=== PATIENT | female | born 1945 | race Caucasian/White ===

== ENCOUNTER 2016-07-06 11:22 | Inpatient (IN) | payer MEDICAID ==
[~2016-07-06] VITALS: Ht 152.4 cm; Wt 51.4 kg
[~2016-07-06 11:22] MED LIST: ADV25050 INH; ALBU8.5H5 IH; AMLO-147 PO; ASPI81TA3 PO; CARV3.1260 PO; DOCU-159 PO; FER325 PO; FURO-110 PO; LANT3I SC; LOSA100T7 PO; METO10TA92 PO; OMEP20CA16 PO; ONDA4TAB8 PO
[2016-07-06 12:22] LABS: ADD SCAN DIFF NO
[2016-07-06 12:23] LABS: BASOPHILS % 0.5 % (0.0-2.0); EOSINOPHILS # 0.2 10^3/ul (0.0-0.5); EOSINOPHILS % 3.7 % (0.0-7.0); HEMATOCRIT 23.2 % (37.0-47.0); HEMOGLOBIN 7.6 g/dl (12.0-16.0); LYMPHOCYTES # 1.3 10^3/ul (0.8-2.9); LYMPHOCYTES % 22.6 % (15.0-51.0); MEAN CORPUSCULAR HEMOGLOBIN 31.4 pg (29.0-33.0); MEAN CORPUSCULAR HGB CONC 32.8 g/dl (32.0-37.0); MEAN CORPUSCULAR VOLUME 95.9 fl (82.0-101.0); MEAN PLATELET VOLUME 9.1 fl (7.4-10.4); MONOCYTE # 0.4 10^3/ul (0.3-0.9); MONOCYTES % 6.6 % (0.0-11.0); NEUTROPHIL # 3.7 10^3/ul (1.6-7.5); NEUTROPHILS % 66.2 % (39.0-77.0); PLATELET COUNT 133 10^3/UL (140-415); RED BLOOD COUNT 2.42 10^6/ul (4.20-5.40); RED CELL DISTRIBUTION WIDTH 13.4 % (11.5-14.5); WHITE BLOOD COUNT 5.6 10^3/ul (4.8-10.8)
[2016-07-06 12:33] LABS: ALBUMIN 3.3 g/dl (3.3-4.9)
[2016-07-06 12:34] LABS: CHLORIDE 103 mmol/L (97-110); INR 1.01; POTASSIUM 4.5 mmol/L (3.5-5.1); PROTIME 13.3 Sec (12.2-14.2); SODIUM 137 mmol/L (135-144)
[2016-07-06 12:35] LABS: PARTIAL THROMBOPLASTIN TIME 34.3 Sec (25.0-35.0)
[2016-07-06 12:36] LABS: ALBUMIN/GLOBULIN RATIO 0.82; ANION GAP 16 (8-16); ASPARTATE AMINO TRANSFERASE 17 IU/L (15-46); BILIRUBIN,INDIRECT 0.2 mg/dl (0-1.1); BILIRUBIN,TOTAL 0.2 mg/dl (0.2-1.3); CARBON DIOXIDE 23 mmol/L (21-31); CREATININE 0.95 mg/dl (0.44-1.00); TOTAL PROTEIN 7.3 g/dl (6.1-8.1)
[2016-07-06 12:37] LABS: ALANINE AMINOTRANSFERASE 11 IU/L (13-69); ALKALINE PHOSPHATASE 81 IU/L (42-121); BLOOD UREA NITROGEN 19 mg/dl (7-20); CALCIUM 8.5 mg/dl (8.4-10.2); GLUCOSE 310 mg/dl (70-220)
[2016-07-06] MEDS ORDERED: NOVMIX SC (12:44)
[2016-07-06] MEDS ORDERED: LANT3I SC (12:45)
[2016-07-06 12:53] LABS: TROPONIN-I < 0.012 ng/ml (0.00-0.12)
[2016-07-06 12:54] LABS: B-TYPE NATRIURETIC PEPTIDE 3720 PG/ML (0-125)
--- NOTE | 2016-07-06 12:55 | RADRPT ---
PROCEDURE: XR Chest. CLINICAL INDICATION: Shortness of breath TECHNIQUE: Chest AP portable. COMPARISON: 09/02/2015 FINDINGS: Right internal jugular Port-A-Cath. The mediastinal structures are unremarkable. There is calcification of the thoracic aorta (consiste nt with atherosclerosis). There is moderate cardiac enlargement. There is mild pulmonary venous hy pertension. There is a RLL patchy consolidation/subsegmental atelectasis. There is left basilar madsen bsegmental atelectasis. The pleural spaces are unremarkable. There are senescent changes of the ax ial skeleton. IMPRESSION: Moderate cardiac enlargement. Mild pulmonary venous hypertension. RLL patchy consolidation/subsegmental atelectasis Left basilar subsegmental atelectasis. RPTAT: HGDB .Benson Frederick MD, Date Time Electronically viewed and signed by .Benson Frederick MD, on 07/06/2016 12:54 .B/
[2016-07-06] MEDS ORDERED: SOD CHLORIDE 0.9% 250 ML IV ONE (13:21)
[2016-07-06] MEDS ORDERED: FUROSEMIDE 40 MG INJ IV ONE (13:30)
[2016-07-06] MEDS ORDERED: ONDANSETRON 4 MG INJ IV PRN (14:30)
[2016-07-06] MEDS ORDERED: ACETAMINOPHEN 325 MG TAB PO PRN (14:30)
--- NOTE | 2016-07-06 14:51 | ERA ---
ER Documentation Chief Complaint Date/Time DATE: 07/06/16 TIME: 14:43 Chief Complaint COUGH,SOB, WEAKNESS HPI 70-year-old female with a history of hypertension, diabetes and heart failure presenting with worsening shortness of breath and bilateral lower extremity edema. She is unable to sleep secondary to her dyspnea per her daughter. She was recently diagnosed with anemia, but has not been treated. She denies any associated chest pain, fevers, chills. She does have a chronic cough with no change in her phlegm. No recent travel or surgeries. ROS All systems reviewed and are negative except as per history of present illness. Medications Home Meds Reported Medications Insulin Glargine* (Lantus*) 100 Unit/Ml Soln, 20 UNIT SC QHS, #1 VIAL 07/06/16 Insulin Aspart (Novolog Mix (70/30)) 100 Units/Ml Soln, 0 SC WITH MEALS, VIAL 07/06/16 Docusate Sodium* (Docusate Sodium*) 100 Mg Capsule, 100 MG PO BID, #60 CAP 03/28/15 Furosemide* (Lasix*) 20 Mg Tablet, 20 MG PO DAILY, TAB 03/28/15 Amlodipine Besylate* (Amlodipine Besylate*) 10 Mg Tablet, 10 MG PO DAILY, #30 TAB 03/28/15 Carvedilol* (Carvedilol*) 3.125 Mg Tablet, 3.125 MG PO DAILY, TAB 01/31/14 Losartan Potassium* (Losartan Potassium*) 100 Mg Tablet, 100 MG PO DAILY, TAB 10/07/13 Omeprazole* (Omeprazole*) 20 Mg Capsule.dr, 20 MG PO DAILY 05/26/13 Discontinued Reported Medications Albuterol Sulfate* (Albuterol Sulfate* HFA) 8.5 Gm Hfa.aer.ad, 1 PUFF IH DAILY Y for WHEEZING AND SOB, EA 01/31/14 Aspirin* (Aspirin* Chew) 81 Mg Tab.chew, 81 MG PO DAILY, TAB.CHEW 01/31/14 Discontinued Scripts Furosemide* (Lasix*) 20 Mg Tablet, 20 MG PO DAILY, #20 TAB Prov:PAT NICOHLAS MD 09/02/15 Insulin Glargine* (Lantus*) 100 Unit/Ml Soln, 8 UNIT SC HS, #1 BOTTLE Prov:CHRIS KO MD 04/13/15 Ferrous Sulfate* (Ferrous Sulfate*) 325 Mg Tabec, 325 MG PO DAILY, #30 TAB Prov:CHRIS KO MD 04/13/15 Metoclopramide* (Reglan*) 10 Mg Tab, 10 MG PO twice a day, #60 TAB Prov:CHRIS KO MD 04/13/15 Ondansetron Hcl* (Zofran*) 4 Mg Tablet, 4 MG PO Q6H for NAUSEA AND/OR VOMITING, #30 TAB Prov:EVONNE STEPHENSON 03/28/15 Salmeterol Xinaf/Fluticasone* (Advair*) 250-50 Diskus Inhaler, 1 INH INH BID, # 1 INH Prov:ODILON VELASQUEZ 02/12/14 Allergies Allergies: Coded Allergies: Penicillins (Verified Allergy, Severe, ANGIOEDEMA, 07/06/16) ceftriaxone (Verified Allergy, Severe, angioedema, 07/06/16) PMhx/Soc History of Surgery: Yes (LEFT BREAST MASTECTOMY,RT KNEE SURGERY) Anesthesia Reaction: No Hx Neurological Disorder: No Hx Respiratory Disorders: Yes (ASTHMA,PNA, PLEURAL EFFUSION) Hx Cardiac Disorders: Yes (HTN, CHF) Hx Miscellaneous Medical Probl: No Hx Alcohol Use: No Hx Substance Use: No Hx Tobacco Use: No Smoking Status: Never smoker FmHx Family History: No diabetes Physical Exam Vitals Vital Signs Date Time Temp Pulse Resp B/P Pulse Ox O2 Delivery O2 Flow Rate FiO2 07/06/16 12:13 Nasal Cannula 2 07/06/16 11:24 98.1 74 20 181/82 99 Physical Exam Const: Sitting upright in bed, no apparent distress Head: Atraumatic Eyes: Normal Conjunctiva ENT: Normal External Ears, Nose and Mouth. Neck: Full range of motion. No JVD. No meningismus. Resp: Clear to auscultation bilaterally, diminished at bases Cardio: Regular rate and rhythm, no murmurs Abd: Soft, non tender, non distended. Normal bowel sounds Skin: No petechiae or rashes Back: No midline or flank tenderness Ext: No cyanosis, 2+ bilateral lower extremity edema, symmetric Neur: Awake and alert Psych: Normal Mood and Affect Result Diagram: 07/06/16 1207 07/06/16 1207 Results 24 hrs Laboratory Tests Test 07/06/16 12:07 White Blood Count 5.610^3/ul Red Blood Count 2.4210^6/ul Hemoglobin 7.6g/dl Hematocrit 23.2% Mean Corpuscular Volume 95.9fl Mean Corpuscular Hemoglobin 31.4pg Mean Corpuscular Hemoglobin Concent 32.8g/dl Red Cell Distribution Width 13.4% Platelet Count 63673^3/UL Mean Platelet Volume 9.1fl Neutrophils % 66.2% Lymphocytes % 22.6% Monocytes % 6.6% Eosinophils % 3.7% Basophils % 0.5% Nucleated Red Blood Cells % 0.0/100WBC Neutrophils # 3.710^3/ul Lymphocytes # 1.310^3/ul Monocytes # 0.410^3/ul Eosinophils # 0.210^3/ul Basophils # 0.010^3/ul Nucleated Red Blood Cells # 0.010^3/ul Prothrombin Time 13.3Sec Prothrombin Time Ratio 1.0 INR International Normalized Ratio 1.01 Activated Partial Thromboplast Time 34.3Sec Sodium Level 137mmol/L Potassium Level 4.5mmol/L Chloride Level 103mmol/L Carbon Dioxide Level 23mmol/L Anion Gap 16 Blood Urea Nitrogen 19mg/dl Creatinine 0.95mg/dl Glucose Level 310mg/dl Calcium Level 8.5mg/dl Total Bilirubin 0.2mg/dl Direct Bilirubin 0.00mg/dl Indirect Bilirubin 0.2mg/dl Aspartate Amino Transf (AST/SGOT) 17IU/L Alanine Aminotransferase (ALT/SGPT) 11IU/L Alkaline Phosphatase 81IU/L Troponin I < 0.012ng/ml B-Type Natriuretic Peptide 3720PG/ML Total Protein 7.3g/dl Albumin 3.3g/dl Globulin 4.00g/dl Albumin/Globulin Ratio 0.82 Current Medications Medications (Trade) Dose Ordered Sig/Nicol Route PRN Reason Start Time Stop Time Status Last Admin Dose Admin Furosemide 40 mg 40 mg ONCE ONCE IV 07/06/16 13:30 07/06/16 13:31 DC 07/06/16 13:43 Sodium Chloride (NS) 250 ml @ 0 mls/hr Q0M ONCE IV 07/06/16 13:21 07/06/16 13:23 DC 07/06/16 13:43 Ondansetron HCl (Zofran Inj) 4 mg ER BRIDGE PRN IV NAUSEA AND/OR VOMITING 07/06/16 14:30 07/07/16 14:29 Acetaminophen (Tylenol Tab) 650 mg ER BRIDGE PRN PO MILD PAIN/FEVER 07/06/16 14:30 07/07/16 14:29 Procedures/MDM EMERGENT LABS AND DIAGNOSTIC STUDIES: Lab Results above were reviewed and interpreted by me. CBC is notable for anemia with hemoglobin 7.6 BNP is elevated 12-lead EKG was interpreted by Wilfred Montesinos MD: Normal Sinus Rhythm with ventricular rate of at 63 beats per minute Normal axis Normal intervals No acute ST or T wave changes suggestive of acute ischemia or STEMI. Radiology Results as interpreted by Radiology below were reviewed by Luis Enrique Montesinos MD: Chest x-ray: Moderate cardiac enlargement. Mild pulmonary venous hypertension. RLL patchy consolidation/subsegmental atelectasis Left basilar subsegmental atelectasis. .Benson Frederick MD, MD Date Time Electronically viewed and signed by .Benson Frederick MD, MD on 07/06/2016 12:54 Initial Nursing notes reviewed. Previous Medical Records requested via the Electronic Health Record. EMERGENCY DEPARTMENT COURSE / MEDICAL DECISION MAKING: Patient is presenting with worsening shortness of breath and constellation of symptoms concerning for acute decompensated CHF. Vitals were notable for uncontrolled hypertension, however I have a low suspicion for hypertensive emergency. EKG shows no overt evidence of acute ischemia. Chest x-ray shows possible right lower lobe infiltrate, however patient's exam and presentation is not consistent with pneumonia. Low suspicion for acute PE given exam and history. Low suspicion for acute ischemia, but will trend troponin. Given decline in functional status, she will benefit from admission for further diuresis and cardiac evaluation. Lasix 40 mg IV given. Accepting Care Team: Current data and ongoing care discussed. Time: Time of admission Primary Provider: Ferdinand Consulting: None Outstanding Data: none Departure Diagnosis: Primary Impression: Dyspnea Qualified Code: R06.00 - Dyspnea, unspecified type Additional Impression: Acute exacerbation of CHF (congestive heart failure) Qualified Code: I50.9 - Acute on chronic congestive heart failure, unspecified congestive heart failure type KAROLINA MONTESINOS MD Jul 06, 2016 14:51
[2016-07-06 17:25] VITALS: TEMP 98.2
[2016-07-06] MEDS ORDERED: ALBUTEROL/IPRATROPIUM (NEB) 3 ML AMP HHN PRN (18:00)
[2016-07-06] MEDS: AMLODIPINE 10 MG TAB PO SCH (18:25)
[2016-07-06] MEDS: PANTOPRAZOLE 40 MG INJ IV SCH (18:28)
[2016-07-06 18:29] VITALS: Ht 152.4 cm; Wt 51.4 kg
[2016-07-06] MEDS ORDERED: DEXTROSE 50% 50 ML SYRINGE IV PRN ×2 (18:30)
[2016-07-06] MEDS ORDERED: GLUCOSE GEL 15 GRAM TUBE PO PRN ×2 (18:30)
[2016-07-06] MEDS ORDERED: GLUCAGON 1 MG INJ IM PRN (18:30)
[2016-07-06] MEDS ORDERED: GLUCOSE GEL 15 GRAM TUBE BUCCAL PRN (18:30)
[2016-07-06 18:39] VITALS: BP 169/78; RESP 18
[2016-07-06 19:19] LABS: CREATINE KINASE 134 IU/L (23-200)
[2016-07-06 19:26] LABS: IRON 38 ug/dl (35-150)
[2016-07-06 19:29] LABS: CK-MB 7.12 ng/ml (0.0-2.4)
[2016-07-06 19:33] LABS: TROPONIN-I < 0.012 ng/ml (0.00-0.12)
[2016-07-06 19:35] LABS: TOTAL IRON BINDING CAPACITY 250 ug/dl (241-421)
[2016-07-06] MEDS ORDERED: LEVOFLOXACIN 750MG/D5W (PMX) 150 ML IVPB SCH (20:00)
[2016-07-06] MEDS: ALBUTEROL/IPRATROPIUM (NEB) 3 ML AMP HHN SCH (20:06)
[2016-07-06 20:07] VITALS: BP 189/82; RESP 18
[2016-07-06 20:34] VITALS: PULSE 80
[2016-07-06] MEDS: DOCUSATE SODIUM 100 MG CAP PO SCH (20:34)
[2016-07-06] MEDS: INSULIN ASPART [NOVOLOG] 3 ML PEN SC SCH (21:52)
[2016-07-06] MEDS: INSULIN GLARGINE [LANtus] 3 ML PEN SC SCH (21:53)
--- NOTE | 2016-07-06 23:31 | HP ---
DATE OF ADMISSION: 07/06/2016 PRESENTING COMPLAINT: Shortness of breath and weakness. HISTORY OF PRESENTING COMPLAINT: This is a 70-year-old female brought in by her daughter because of shortness of breath and bilateral lower extremity swelling and severe lethargy. The daughter is th e one giving the history and reports orthopnea as well as dyspnea on exertion. She does have a hist ory of congestive heart failure. There has been cough, but this is chronic for the patient. Produc tive of whitish phlegm. The patient was also found to be severely anemic in the emergency room, trena villalobos the daughter says she has a history of, but she has not required transfusion. Her last hospitali zation at this facility was in 03/2015. She has had no fevers. No syncopal episodes. No falls. N o gross focal deficits have been noted. Denies dysuria or hematuria, but patient has had multiple u rinary tract infections. Family has not noted black stools and the patient does not endorse same. PAST MEDICAL HISTORY: 1. High blood pressure. 2. Diabetes. 3. Congestive heart failure. 4. History of aortic stenosis. 5. History of left breast cancer status post left-sided mastectomy. 6. Chronic arthritis status post right knee surgery. 7. Positive history of mycoplasma infection in the past. 8. Thoracentesis x2. 9. Chronic gastritis with last EGD: 04/11/2015. 10. Multiple urinary tract infections. ALLERGIES: 1. PENICILLIN. 2. ROCEPHIN. MEDICATIONS: 1. Coreg. 2. Lasix. 3. Norvasc. 4. Colace. 5. Lantus. 6. Losartan. 7. NovoLog. 8. Nexium. FAMILY HISTORY: Noncontributory. REVIEW OF SYSTEMS: A 12-point review of system was done. Pertinent findings are as noted in the HP I. PHYSICAL EXAMINATION: VITAL SIGNS: Temperature 98.2, pulse 67, respirations 17, blood pressure 165/79. Saturations are 9 8% on room air. GENERAL: Elderly female who currently is comfortable, but lethargic. HEENT: Head is normocephalic, atraumatic. Pupils are equal and reactive. There is no scleral chani dice. Mild conjunctival pallor. Mucous membranes are slightly dry. Posterior pharynx clear of exu date. NECK: Supple. No JVD. CHEST: Clear to auscultation, reduced in the bases. CARDIOVASCULAR: S1 and S2. The patient has a systolic murmur. ELECTROCARDIOGRAM: Shows normal sinus rhythm on my review with a rate of 63 beats per minute withou t evidence of acute ischemia. ABDOMEN: Soft, nontender, nondistended. EXTREMITIES: No lower extremity edema. SKIN: Devoid of rash or jaundice. PSYCHIATRIC: She was calm, cooperative with exam. LABORATORY VALUES: Hemoglobin 7.6, as noted. Platelet count is also low at 133. Note is that the white count normal, indices unremarkable. On her chemistry, glucose was elevated at 310. The rest of the complete metabolic profile was unremarkable. Troponin is negative. BNP was, however, elevat ed at 3720. Coagulation profile was unremarkable. Urinalysis is still pending. IMAGING: Chest x-ray showed moderate cardiac enlargement with mild pulmonary venous hypertension wi th right lower lobe patchy consolidation and left basilar subsegmental atelectasis. ASSESSMENT: A 70-year-old female who was brought in with chronic cough, shortness of breath, and le thargy now managed for the followin. Severe symptomatic anemia. 2. Mild congestive heart failure exacerbation, likely diastolic. 3. Chronic aortic stenosis. 4. Uncontrolled high blood pressure. 5. Diabetes type 2, also uncontrolled. 6. Mild thrombocytopenia. 7. History of breast cancer status post left-sided mastectomy. 8. PENICILLIN AND CEFTRIAXONE ALLERGY. 9. History of thoracentesis x2 in the past. 10. Chronic gastritis. 11. Right lower lobe consolidation, which could be suggestive of pneumonia in the right side lung. The patient has no fever or leukocytosis. PLAN: 1. Admit the patient to telemetry floor. We will complete an ACS rule out. Commence to diuresis w ith IV Lasix. Get a repeat echocardiogram and obtain cardiology consult if indicated. 2. We will get a stool occult blood testing. Will commence the patient on IV PPI therapy. Put her on an 1800 calorie diet and stool softeners and see how she does. 3. She is to be transfused per the emergency room physician. Post-transfusion, we will repeat the hemoglobin and further interventions will depend on our findings. 4. Resume home blood pressure medications. Titrate for improved blood pressure control if indicate d. 5. Resume home Lantus therapy. Again, titrate for improved control if indicated. 6. Of note is that the patient is not on aspirin therapy. I am going to be starting her on low dos e 81 mg aspirin. 7. We will closely monitor her platelet counts. Again, intervene as indicated. I reviewed this plan of care with the patient and her family. I have answered questions. Further i nterventions will depend on her clinical course. Prophylaxis will be with SCDs only for now in view of severe anemia and IV PPI. Please also note that I also commenced patient on empiric antibiotics for probable pneumonia versus probable urinary tract infection as well. Dictated By: JIMBO ZAVALETA MD BA/NTS Conf#: [id number] DID#: [id number]
[2016-07-07] VITALS (13 sets, daily range): BP systolic 111–170; BP diastolic 54–75; PULSE 63–83; RESP 18–20
[2016-07-07 00:28] LABS: CK-MB 5.14 ng/ml (0.0-2.4)
[2016-07-07 00:34] LABS: TROPONIN-I < 0.012 ng/ml (0.00-0.12)
[2016-07-07 00:40] LABS: CREATINE KINASE 128 IU/L (23-200)
[2016-07-07 00:55] LABS: ADD UMIC YES; URINE BILIRUBIN (Dip) NEGATIVE (NEGATIVE); URINE BLOOD (Dip) TRACE (NEGATIVE); URINE COLOR LT. YELLOW (YELLOW); URINE GLUCOSE (Dip) NEGATIVE (NEGATIVE); URINE KETONES (Dip) NEGATIVE (NEGATIVE); URINE LEUKOCYTE ESTERASE (Dip) NEGATIVE (NEGATIVE); URINE NITRITE (Dip) NEGATIVE (NEGATIVE); URINE TOTAL PROTEIN (Dip) 2+ (NEGATIVE); URINE UROBILINOGEN (Dip) 0.2 E.U./dL (0.1-1.0)
[2016-07-07 01:06] LABS: BACTERIA,URINE MODERATE; SQUAMOUS EPITHELIAL CELL,UR OCCASIONAL
[2016-07-07] MEDS: ACCU-CHEK XX SCH (02:16)
[2016-07-07] MEDS: PANTOPRAZOLE 40 MG INJ IV SCH (06:24)
[2016-07-07] MEDS ORDERED: LEVALBUTEROL (NEB) 0.63 MG/3 ML AMP HHN ONE (06:30)
[2016-07-07] MEDS: GUAIFENESIN 20 MG/ML 5ML CUP PO PRN ×3 (06:41→16:23)
[2016-07-07 07:14] LABS: CALCIUM 8.3 mg/dl (8.4-10.2); CHOL/HDL RATIO 3.3 RATIO; CREATININE 0.97 mg/dl (0.44-1.00); MAGNESIUM 1.7 mg/dl (1.7-2.5); POTASSIUM 4.9 mmol/L (3.5-5.1)
[2016-07-07 07:39] LABS: THYROID STIMULATING HORMONE 11.7 MIU/L (0.465-4.680)
[2016-07-07] MEDS: INSULIN ASPART [NOVOLOG] 3 ML PEN SC SCH ×4 (08:00→20:51)
[2016-07-07] MEDS: DOCUSATE SODIUM 100 MG CAP PO SCH ×2 (08:45→20:42)
[2016-07-07] MEDS: ASPIRIN (EC) 81 MG TAB PO SCH (08:45)
[2016-07-07] MEDS: LOSARTAN 50 MG TAB PO SCH (08:46)
[2016-07-07] MEDS: AMLODIPINE 10 MG TAB PO SCH (08:46)
[2016-07-07] MEDS: ALBUTEROL/IPRATROPIUM (NEB) 3 ML AMP HHN SCH ×4 (09:00→20:33)
[2016-07-07] MEDS ORDERED: FUROSEMIDE 40 MG INJ IV SCH (09:00)
--- NOTE | 2016-07-07 12:06 | RADRPT ---
Echocardiogram Report Patient Name: JAYSON EUBANKS Gender: Female Date: 1945 Study Date: 07-Jul-2016 Commercial Counsel: Piedad Briceño [facility] Location: [id number] Ref. Physician: JIMBO ZAVALETA Quality: Good Procedures: Transthoracic echocardiogram with complete 2D, M-Mode, and doppler examination. Indications: Congestive Heart Failure. 2D/M Mode Doppler Measurement Value Normal Ranges Measurement Value Normal Ranges LVIDd 2D 4.4 3.5 - 5.6 cm CASSIE Vmax 0.9 cm2 LVIDs 2D 2.2 2.1 - 4.1 cm CASSIE VTI 0.9 cm2 FS 2D 50.8 % AV Mean Krish 2.5 m/sec LVPWd 2D 1.0 0.6 - 1.1 cm AV Mean PG 29.0 mmHg IVSd 2D 1.0 0.6 - 1.1 cm AV Peak Krish 3.6 m/sec IVS/LVPW 2D 1.0 AV Peak PG 52.0 mmHg AoR Diam 2D 2.6 2.0 - 3.7 cm AV VTI 90.4 cm LA/Ao 2D 1 0 - 1 LVOT Mean Krish 0.8 m/sec EDV 2D 85.8 cm3 LVOT Mean PG 3.0 mmHg ESV 2D 10.2 cm3 LVOT Peak Krish 1.0 m/sec LA Dimen 2D 3.1 2.3 - 4.0 cm LVOT Peak PG 4.0 mmHg LVOT Diam 2.0 cm LVOT VTI 26.3 cm LVOT Area 3.1 cm2 MV E Peak Krish 0.9 m/sec MV A Peak Krish 0.6 m/sec MV E/A 1.4 MV Decel Time 211 msec MV E/A 1.4 TR Peak Krish 3.8 m/sec TR Peak PG 56.0 mmHg RVSP 64.0 mmHg Findings Left Ventricle: Normal left ventricular systolic function. Normal left ventricular cavity size. Mild concentric left ventricular hypertrophy. Ejection fraction is visually estimated at 65 %. Tissue Doppler/Mitral Doppler indices are consistent with pseudonormalization with mildly elevated left atrial pressure (Stage II diastolic dysfunction). Right Ventricle: Normal right ventricular size. Normal right ventricular systolic function. Left Atrium: The left atrium is normal in size. Right Atrium: The right atrium is normal in size. Mitral Valve: Mild mitral leaflet calcification. Mild mitral annular calcification. Mild to moderate mitral valve regurgitation. Aortic Valve: Aortic valve not well visualized. Moderate to severe aortic stenosis. Aortic valve Max velocity 3.62 m/sec. Max PG 52.00 mmHg. Mean PG 29.00 mmHg. Aortic valve area 0.91 cm2. Aortic cusps appear moderately calcified. No aortic regurgitation. Tricuspid Valve: Estimated peak PA systolic pressure 64 mmHg. There is moderate tricuspid regurgitation. Pulmonic Valve: Normal pulmonic valve appearance. Pericardium: Normal pericardium with no significant pericardial effusion. Aorta: Normal aortic root. IVC: Dilated IVC with respiratory collapse consistent with elevated right atrial pressure. Conclusions 1.Normal left ventricular systolic function. Normal left ventricular cavity size. Mild concentric left ventricular hypertrophy. Ejection fraction is visually estimated at 65 %. Tissue Doppler/Mitral Doppler indices are consistent with pseudonormalization with mildly elevated left atrial pressure (Stage II diastolic dysfunction). 2.Mild mitral leaflet calcification. Mild mitral annular calcification. Mild to moderate mitral valve regurgitation. 3.Estimated peak PA systolic pressure 64 mmHg. There is moderate tricuspid regurgitation. 4.Aortic valve not well visualized. Moderate to severe aortic stenosis. Aortic valve Max velocity 3.62 m/sec. Max PG 52.00 mmHg. Mean PG 29.00 mmHg. Aortic valve area 0.91 cm2. Aortic cusps appear moderately calcified. No aortic regurgitation. 5.Dilated IVC with respiratory collapse consistent with elevated right atrial pressure. Electronically Signed By: Rory Beltrán 07-Jul-2016 12:06:11 -0700 Patient Name: JAYSON EUBANKS Study Date: 07-Jul-2016 [id number]
--- NOTE | 2016-07-07 16:39 | PN ---
Date/Time of Note Date/Time of Note DATE: 07/07/16 TIME: 16:28 Assessment/Plan VTE Prophylaxis VTE Prophylaxis Intervention: SCD's Lines/Catheters IV [facility] Saline Lock Urinary Cath still in place: No Assessment/Plan Assessment/Plan 1. Severe symptomatic anemia. 2 units of PRBC transfusion, follow up with H/H 2. Uncontrolled high blood pressure. change norvasc to procardia 3. Chronic aortic stenosis. 4. Community acquired pneumonia, levaquin 5. Diabetes type 2, on insulin 6. Mild thrombocytopenia. 7. History of breast cancer status post left-sided mastectomy. 8. PENICILLIN AND CEFTRIAXONE ALLERGY. 9. History of thoracentesis x2 in the past. 10. Chronic gastritis. 11. Hypothyroidism, synthroid Subjective 24 Hr Interval Summary Free Text/Dictation cough, sneezing Exam/Review of Systems Vital Signs Vitals Vital Signs Date Time Temp Pulse Resp B/P Pulse Ox O2 Delivery O2 Flow Rate FiO2 07/07/16 16:03 98.1 68 18 157/68 98 07/07/16 13:36 21 07/06/16 17:25 Room Air 07/06/16 12:13 2 Intake and Output 07/06/16 07/06/16 07/07/16 15:00 23:00 07:00 Intake Total 150 ml 900 ml Output Total 1900 ml Balance 150 ml -1000 ml Exam Constitutional: alert, oriented, well developed Psych: nl mood/affect, no complaints Head: atraumatic, normocephalic Eyes: EOMI, PERRL, nl conjunctiva, nl lids ENMT: nl external ears & nose, nl lips & teeth, nl nasal mucosa & septum Neck: non-tender, supple Respiratory: crackles/rales (on right) Cardiovascular: nl pulses, regular rate and rhythm, systolic murmur (RUSB Giii/ 6), No S3, No S4, No bruits, No diastolic murmur, No edema, No gallop, No irregular rhythm, No jugular venous distention (JVD), No other, No rub Gastrointestinal: nl liver, spleen, non-tender, soft, No ascites, No bowel sounds, No distended, No firm, No hepatomegaly, No mass , No other, No rebound or guarding, No splenomegaly, No surgical scars, No tender Musculoskeletal: nl extremities to inspection Extremities: normal pulses, No calf tenderness, No clubbing, No cyanosis, No edema, No other, No palpable cord, No pitting pedal edema, No tenderness Neurological: INSURANCE BUSINESS ANALYST II-XII intact, nl mental status, nl speech, nl strength Skin: nl turgor Lymph: nl lymph nodes Results Result Diagram: 07/06/16 1207 07/07/16 0544 Results 24 hrs Laboratory Tests Test 07/06/16 18:55 07/06/16 21:47 07/06/16 23:37 07/07/16 00:20 Iron Level 38 Total Iron Binding Capacity 250 Percent Iron Saturation 15 L Creatine Kinase 134 128 Creatine Kinase Index 5.3 4.0 Creatinine Kinase MB (Mass) 7.12 H 5.14 H Troponin I < 0.012 < 0.012 Bedside Glucose 232 H Urine Color LT. YELLOW Urine Clarity CLEAR Urine pH 6.5 Urine Specific Graham 1.015 Urine Ketones NEGATIVE Urine Nitrite NEGATIVE Urine Bilirubin NEGATIVE Urine Urobilinogen 0.2 E.U./dL Urine Leukocyte Esterase NEGATIVE Urine Microscopic RBC 2-5 Urine Microscopic WBC 2-5 Urine Squamous Epithelial Cells OCCASIONAL Urine Bacteria MODERATE Urine Hemoglobin TRACE Urine Glucose NEGATIVE Urine Total Protein 2+ H Test 07/07/16 02:10 07/07/16 02:29 07/07/16 02:49 07/07/16 03:06 Bedside Glucose 59 L 59 L 73 98 Test 07/07/16 03:22 07/07/16 05:44 07/07/16 05:49 07/07/16 08:01 Bedside Glucose 130 114 Sodium Level 136 Potassium Level 4.9 Chloride Level 105 Carbon Dioxide Level 27 Anion Gap 9 # Blood Urea Nitrogen 20 Creatinine 0.97 Glucose Level 118 # Calcium Level 8.3 L Magnesium Level 1.7 Triglycerides Level 64 Cholesterol Level 163 LDL Cholesterol, Calculated 101 HDL Cholesterol 49 Cholesterol/HDL Ratio 3.3 Thyroid Stimulating Hormone (TSH) 11.700 H Hemoglobin A1c 6.7 H Test 07/07/16 12:00 Bedside Glucose 192 Medications Medications Current Medications Amlodipine Besylate (Norvasc) 10 mg DAILY PO Last administered on 07/07/16 08: 46; Admin Dose 10 MG; Start 07/06/16 at 18:00 Carvedilol (Coreg) 3.125 mg BID PO Last administered on 07/07/16 08:46; Admin Dose 3.125 MG; Start 07/06/16 at 21:00 Docusate Sodium (Colace) 100 mg BID PO Last administered on 07/07/16 08:45; Admin Dose 100 MG; Start 07/06/16 at 21:00 Insulin Glargine (Lantus) 8 unit QHS SC Last administered on 07/06/16 21:53; Admin Dose 8 UNIT; Start 07/06/16 at 21:00 Losartan Potassium 100 mg 100 mg DAILY PO Last administered on 07/07/16 08:46 ; Admin Dose 100 MG; Start 07/07/16 at 09:00 Levofloxacin/ Dextrose (Levaquin 750 Mg/ D5W 150 ml (Pmx)) 150 ml @ 100 mls/hr Q48H IVPB Last administered on 07/06/16 20:34; Admin Dose 100 MLS/HR; Start at 20:00 Furosemide (Lasix) 40 mg DAILY IV Last administered on 07/07/16 08:47; Admin Dose 40 MG; Start 07/07/16 at 09:00 Pantoprazole (Protonix Iv) 40 mg DAILY@06 IV Last administered on 07/07/16 06: 24; Admin Dose 40 MG; Start 07/06/16 at 18:00 Miscellaneous Information 1 ea NOTE XX ; Start 07/06/16 at 18:30 Glucose (Glutose) 15 gm Q15M PRN PO DECREASED GLUCOSE; Start 07/06/16 at 18:30 Glucose (Glutose) 22.5 gm Q15M PRN PO DECREASED GLUCOSE; Start 07/06/16 at 18: 30 Dextrose (D50w Syringe) 25 ml Q15M PRN IV DECREASED GLUCOSE; Start 07/06/16 at 18:30 Dextrose (D50w Syringe) 50 ml Q15M PRN IV DECREASED GLUCOSE; Start 07/06/16 at 18:30 Glucagon (Glucagen) 1 mg Q15M PRN IM DECREASED GLUCOSE; Start 07/06/16 at 18:30 Glucose (Glutose) 15 gm Q15M PRN BUCCAL DECREASED GLUCOSE; Start 07/06/16 at 18 :30 Aspirin (Halfprin) 81 mg DAILY PO Last administered on 07/07/16 08:45; Admin Dose 81 MG; Start 07/07/16 at 09:00 Diagnostic Test (Pha) (Accu-Chek) 1 ea 02 XX Last administered on 07/07/16 02: 16; Admin Dose 1 EA; Start 07/07/16 at 02:00 Guaifenesin (Robitussin Liquid Cup) 200 mg Q4H PRN PO COUGH Last administered on 07/07/16 16:23; Admin Dose 200 MG; Start 07/07/16 at 06:30 PA GALAN MD Jul 07, 2016 16:38
[2016-07-07] MEDS: LEVOFLOXACIN 500MG/D5W (PMX) 100 ML IVPB SCH (16:59)
[2016-07-07] MEDS: NIFEdipine (XL) 60 MG TAB PO SCH (17:00)
[2016-07-07] MEDS: INSULIN GLARGINE [LANtus] 3 ML PEN SC SCH (20:52)
[2016-07-08] VITALS (9 sets, daily range): BP systolic 124–186; BP diastolic 60–92; PULSE 62–77; RESP 16–23
[2016-07-08] MEDS: ACCU-CHEK XX SCH (02:09)
[2016-07-08] MEDS: PANTOPRAZOLE (EC) 40 MG TAB PO SCH (05:33)
[2016-07-08] MEDS: LEVOTHYROXINE 50 MCG TAB PO SCH (05:33)
[2016-07-08] MEDS: INSULIN ASPART [NOVOLOG] 3 ML PEN SC SCH ×4 (08:00→21:25)
[2016-07-08 08:07] LABS: ADD SCAN DIFF NO
[2016-07-08 08:11] LABS: BASOPHILS % 0.5 % (0.0-2.0); EOSINOPHILS # 0.3 10^3/ul (0.0-0.5); EOSINOPHILS % 4.8 % (0.0-7.0); HEMATOCRIT 29.3 % (37.0-47.0); HEMOGLOBIN 9.6 g/dl (12.0-16.0); LYMPHOCYTES # 1.6 10^3/ul (0.8-2.9); LYMPHOCYTES % 26.5 % (15.0-51.0); MEAN CORPUSCULAR HEMOGLOBIN 29.8 pg (29.0-33.0); MEAN CORPUSCULAR HGB CONC 32.8 g/dl (32.0-37.0); MEAN PLATELET VOLUME 9.2 fl (7.4-10.4); MONOCYTE # 0.6 10^3/ul (0.3-0.9); MONOCYTES % 9.9 % (0.0-11.0); NEUTROPHIL # 3.5 10^3/ul (1.6-7.5); NEUTROPHILS % 58.1 % (39.0-77.0); PLATELET COUNT 119 10^3/UL (140-415); RED BLOOD COUNT 3.22 10^6/ul (4.20-5.40); RED CELL DISTRIBUTION WIDTH 14.5 % (11.5-14.5); WHITE BLOOD COUNT 6.1 10^3/ul (4.8-10.8)
[2016-07-08 08:32] LABS: POTASSIUM 4.5 mmol/L (3.5-5.1)
[2016-07-08 08:35] LABS: CREATININE 1.16 mg/dl (0.44-1.00)
[2016-07-08 08:36] LABS: CALCIUM 8.6 mg/dl (8.4-10.2)
[2016-07-08] MEDS: DOCUSATE SODIUM 100 MG CAP PO SCH ×2 (09:24→21:21)
[2016-07-08] MEDS: NIFEdipine (XL) 60 MG TAB PO SCH (09:25)
[2016-07-08] MEDS: LOSARTAN 50 MG TAB PO SCH (09:25)
[2016-07-08] MEDS: ASPIRIN (EC) 81 MG TAB PO SCH (09:25)
[2016-07-08] MEDS: ALBUTEROL/IPRATROPIUM (NEB) 3 ML AMP HHN SCH ×3 (09:40→17:00)
--- NOTE | 2016-07-08 14:39 | PN ---
Date/Time of Note Date/Time of Note DATE: 07/08/16 TIME: 14:37 Assessment/Plan VTE Prophylaxis VTE Prophylaxis Intervention: SCD's Lines/Catheters IV Catheter Type (from Nrsg): Port-a-cath Urinary Cath still in place: No Assessment/Plan Assessment/Plan 1. Severe symptomatic anemia. 2 units of PRBC transfusion, improved 2. Uncontrolled high blood pressure. change norvasc to procardia, improved 3. Chronic aortic stenosis. 4. Community acquired pneumonia, levaquin 5. Diabetes type 2, on insulin 6. Mild thrombocytopenia. 7. History of breast cancer status post left-sided mastectomy. 8. PENICILLIN AND CEFTRIAXONE ALLERGY. 9. History of thoracentesis x2 in the past. 10. Chronic gastritis. 11. Hypothyroidism, synthroid 12. Dysphgia, esophagram and speech eval Subjective 24 Hr Interval Summary Free Text/Dictation cough with white sputum, difficulty in swallowing Exam/Review of Systems Vital Signs Vitals Vital Signs Date Time Temp Pulse Resp B/P Pulse Ox O2 Delivery O2 Flow Rate FiO2 07/08/16 13:21 21 07/08/16 12:00 62 07/08/16 09:40 20 96 07/08/16 03:55 98.0 124/60 07/06/16 17:25 Room Air 07/06/16 12:13 2 Intake and Output 07/07/16 07/07/16 07/08/16 15:00 23:00 07:00 Intake Total 800 ml 1500 ml Output Total 3 ml 1000 ml Balance 797 ml 500 ml Exam Constitutional: alert, oriented, well developed Psych: nl mood/affect, no complaints Head: atraumatic, normocephalic Eyes: EOMI, nl conjunctiva, nl lids ENMT: nl external ears & nose, nl lips & teeth, nl nasal mucosa & septum Neck: non-tender, supple Respiratory: clear to auscultation, normal air movement, No congested cough, No crackles/rales, No diminished breath sounds, No intercostal retraction, No labored breathing, No other, No respirations, No tactile fremitus, No wheezing Cardiovascular: nl pulses, regular rate and rhythm, No S3, No S4, No bruits, No diastolic murmur, No edema, No gallop, No irregular rhythm, No jugular venous distention (JVD), No murmurs/extra sounds, No other, No rub, No systolic murmur Gastrointestinal: nl liver, spleen, non-tender, soft, No ascites, No bowel sounds, No distended, No firm, No hepatomegaly, No mass , No other, No rebound or guarding, No splenomegaly, No surgical scars, No tender Musculoskeletal: nl extremities to inspection Extremities: normal pulses, No calf tenderness, No clubbing, No cyanosis, No edema, No other, No palpable cord, No pitting pedal edema, No tenderness 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, nl mental status, nl speech, nl strength Skin: nl turgor Lymph: nl lymph nodes Results Result Diagram: 07/08/16 0723 07/08/16 0423 Results 24 hrs Laboratory Tests Test 07/07/16 17:05 07/07/16 20:45 07/08/16 01:57 07/08/16 04:23 Bedside Glucose 162 252 H 90 Sodium Level 137 Potassium Level 4.5 Chloride Level 102 Carbon Dioxide Level 26 Anion Gap 14 Blood Urea Nitrogen 30 H Creatinine 1.16 H Glucose Level 103 Calcium Level 8.6 Test 07/08/16 07:23 07/08/16 08:14 07/08/16 11:46 White Blood Count 6.1 Red Blood Count 3.22 #L Hemoglobin 9.6 #L Hematocrit 29.3 #L Mean Corpuscular Volume 91.0 Mean Corpuscular Hemoglobin 29.8 Mean Corpuscular Hemoglobin Concent 32.8 Red Cell Distribution Width 14.5 Platelet Count 119 L Mean Platelet Volume 9.2 Neutrophils % 58.1 Lymphocytes % 26.5 Monocytes % 9.9 Eosinophils % 4.8 Basophils % 0.5 Nucleated Red Blood Cells % 0.0 Neutrophils # 3.5 Lymphocytes # 1.6 Monocytes # 0.6 Eosinophils # 0.3 Basophils # 0.0 Nucleated Red Blood Cells # 0.0 Bedside Glucose 98 181 Medications Medications Current Medications Carvedilol (Coreg) 3.125 mg BID PO Last administered on 07/08/16 09:24; Admin Dose 3.125 MG; Start 07/06/16 at 21:00 Docusate Sodium (Colace) 100 mg BID PO Last administered on 07/08/16 09:24; Admin Dose 100 MG; Start 07/06/16 at 21:00 Insulin Glargine (Lantus) 8 unit QHS SC Last administered on 07/07/16 20:52; Admin Dose 8 UNIT; Start 07/06/16 at 21:00 Losartan Potassium (Cozaar) 100 mg DAILY PO Last administered on 07/08/16 09: 25; Admin Dose 100 MG; Start 07/07/16 at 09:00 Miscellaneous Information 1 ea NOTE XX ; Start 07/06/16 at 18:30 Glucose (Glutose) 15 gm Q15M PRN PO DECREASED GLUCOSE; Start 07/06/16 at 18:30 Glucose (Glutose) 22.5 gm Q15M PRN PO DECREASED GLUCOSE; Start 07/06/16 at 18: 30 Dextrose (D50w Syringe) 25 ml Q15M PRN IV DECREASED GLUCOSE; Start 07/06/16 at 18:30 Dextrose (D50w Syringe) 50 ml Q15M PRN IV DECREASED GLUCOSE; Start 07/06/16 at 18:30 Glucagon (Glucagen) 1 mg Q15M PRN IM DECREASED GLUCOSE; Start 07/06/16 at 18:30 Glucose (Glutose) 15 gm Q15M PRN BUCCAL DECREASED GLUCOSE; Start 07/06/16 at 18 :30 Aspirin (Halfprin) 81 mg DAILY PO Last administered on 07/08/16 09:25; Admin Dose 81 MG; Start 07/07/16 at 09:00 Diagnostic Test (Pha) (Accu-Chek) 1 ea 02 XX Last administered on 07/08/16 02: 09; Admin Dose 1 EA; Start 07/07/16 at 02:00 Guaifenesin (Robitussin Liquid Cup) 200 mg Q4H PRN PO COUGH Last administered on 07/07/16 16:23; Admin Dose 200 MG; Start 07/07/16 at 06:30 Pantoprazole (Protonix Tab) 40 mg DAILY@06 PO Last administered on 07/08/16 05 :33; Admin Dose 40 MG; Start 07/08/16 at 06:00 Nifedipine (Procardia Xl) 60 mg DAILY PO Last administered on 07/08/16 09:25; Admin Dose 60 MG; Start 07/07/16 at 16:30 Levothyroxine Sodium 50 mcg 50 mcg DAILY@06 PO Last administered on 07/08/16 05:33; Admin Dose 50 MCG; Start 4/19/17 at 06:00 Levofloxacin/ Dextrose (Levaquin 500mg/ D5W 100 ml (Pmx)) 100 ml @ 100 mls/hr Q24H IVPB Last administered on 07/07/16t 16:59; Admin Dose 100 MLS/HR; Start at 16:30 PA GALAN MD Jul 08, 2016 14:39
[2016-07-08] MEDS: LEVOFLOXACIN 500MG/D5W (PMX) 100 ML IVPB SCH (16:54)
[2016-07-08] MEDS: INSULIN GLARGINE [LANtus] 3 ML PEN SC SCH (21:24)
[2016-07-09] VITALS (10 sets, daily range): BP systolic 120–193; BP diastolic 59–86; PULSE 54–75; RESP 16–18
[2016-07-09] MEDS: ACCU-CHEK XX SCH (02:01)
[2016-07-09] MEDS: PANTOPRAZOLE (EC) 40 MG TAB PO SCH (06:25)
[2016-07-09] MEDS: LEVOTHYROXINE 50 MCG TAB PO SCH (06:25)
[2016-07-09 07:06] LABS: ADD SCAN DIFF NO; BASOPHILS % 0.7 % (0.0-2.0); EOSINOPHILS # 0.3 10^3/ul (0.0-0.5); EOSINOPHILS % 5.7 % (0.0-7.0); HEMATOCRIT 33.5 % (37.0-47.0); LYMPHOCYTES # 1.6 10^3/ul (0.8-2.9); LYMPHOCYTES % 26.8 % (15.0-51.0); MEAN CORPUSCULAR HEMOGLOBIN 30.1 pg (29.0-33.0); MEAN CORPUSCULAR HGB CONC 32.8 g/dl (32.0-37.0); MEAN CORPUSCULAR VOLUME 91.8 fl (82.0-101.0); MEAN PLATELET VOLUME 9.2 fl (7.4-10.4); MONOCYTE # 0.5 10^3/ul (0.3-0.9); MONOCYTES % 8.6 % (0.0-11.0); NEUTROPHIL # 3.4 10^3/ul (1.6-7.5); PLATELET COUNT 142 10^3/UL (140-415); RED BLOOD COUNT 3.65 10^6/ul (4.20-5.40); RED CELL DISTRIBUTION WIDTH 14.5 % (11.5-14.5); WHITE BLOOD COUNT 5.8 10^3/ul (4.8-10.8)
[2016-07-09 07:26] LABS: POTASSIUM 4.2 mmol/L (3.5-5.1)
[2016-07-09 07:28] LABS: CREATININE 0.97 mg/dl (0.44-1.00)
[2016-07-09 07:29] LABS: CALCIUM 9.3 mg/dl (8.4-10.2)
[2016-07-09] MEDS: INSULIN ASPART [NOVOLOG] 3 ML PEN SC SCH ×4 (08:00→20:47)
[2016-07-09] MEDS: ASPIRIN (EC) 81 MG TAB PO SCH (09:57)
[2016-07-09] MEDS: DOCUSATE SODIUM 100 MG CAP PO SCH ×2 (09:57→20:47)
[2016-07-09] MEDS: NIFEdipine (XL) 60 MG TAB PO SCH (09:58)
[2016-07-09] MEDS: LOSARTAN 50 MG TAB PO SCH (09:59)
--- NOTE | 2016-07-09 16:55 | PN ---
Date/Time of Note Date/Time of Note DATE: 07/09/16 TIME: 16:52 Assessment/Plan VTE Prophylaxis VTE Prophylaxis Intervention: SCD's Lines/Catheters IV Catheter Type (from Nrsg): PORT A CATH Urinary Cath still in place: No Assessment/Plan Assessment/Plan 1. Severe symptomatic anemia. 2 units of PRBC transfusion, improved 2. HTN, controlled 3. Chronic aortic stenosis. 4. Community acquired pneumonia, levaquin 5. Diabetes type 2, on insulin, stable 6. Mild thrombocytopenia. 7. History of breast cancer status post left-sided mastectomy. 8. PENICILLIN AND CEFTRIAXONE ALLERGY. 9. History of thoracentesis x2 in the past. 10. Chronic gastritis. 11. Hypothyroidism, synthroid 12. Dysphgia, esophagram and video swallow study Subjective 24 Hr Interval Summary Free Text/Dictation cough, difficulty in swallowing solid food. discussed withy speech today Exam/Review of Systems Vital Signs Vitals Vital Signs Date Time Temp Pulse Resp B/P Pulse Ox O2 Delivery O2 Flow Rate FiO2 07/09/16 16:19 62 07/09/16 15:00 98.1 18 120/61 96 07/08/16 17:45 21 07/08/16 16:00 Room Air 07/06/16 12:13 2 Intake and Output 07/08/16 07/08/16 07/09/16 15:00 23:00 07:00 Intake Total 670 ml 120 ml Output Total 1000 ml 1200 ml Balance -330 ml -1080 ml Exam Constitutional: alert, oriented, well developed Psych: nl mood/affect, no complaints Head: atraumatic, normocephalic Eyes: EOMI, PERRL, nl conjunctiva, nl lids ENMT: nl external ears & nose, nl lips & teeth, nl nasal mucosa & septum Neck: non-tender, supple Respiratory: clear to auscultation, normal air movement, No congested cough, No crackles/rales, No diminished breath sounds, No intercostal retraction, No labored breathing, No other, No respirations, No tactile fremitus, No wheezing Cardiovascular: regular rate and rhythm, No S3, No S4, No bruits, No diastolic murmur, No edema, No gallop, No irregular rhythm, No jugular venous distention (JVD), No murmurs/extra sounds, No nl pulses, No other, No rub, No systolic murmur Gastrointestinal: nl liver, spleen, non-tender, soft, No ascites, No bowel sounds, No distended, No firm, No hepatomegaly, No mass , No other, No rebound or guarding, No splenomegaly, No surgical scars, No tender Musculoskeletal: nl extremities to inspection 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, nl mental status, nl speech, nl strength Skin: nl turgor Results Result Diagram: 07/09/16 0639 07/09/16 0625 Results 24 hrs Laboratory Tests Test 07/08/16 17:39 07/08/16 19:39 07/09/16 06:25 07/09/16 06:39 Bedside Glucose 182 210 Sodium Level 141 Potassium Level 4.2 Chloride Level 104 Carbon Dioxide Level 29 Anion Gap 12 Blood Urea Nitrogen 29 H Creatinine 0.97 Glucose Level 61 #L Calcium Level 9.3 White Blood Count 5.8 Red Blood Count 3.65 L Hemoglobin 11.0 L Hematocrit 33.5 L Mean Corpuscular Volume 91.8 Mean Corpuscular Hemoglobin 30.1 Mean Corpuscular Hemoglobin Concent 32.8 Red Cell Distribution Width 14.5 Platelet Count 142 Mean Platelet Volume 9.2 Neutrophils % 58.0 Lymphocytes % 26.8 Monocytes % 8.6 Eosinophils % 5.7 Basophils % 0.7 Nucleated Red Blood Cells % 0.0 Neutrophils # 3.4 Lymphocytes # 1.6 Monocytes # 0.5 Eosinophils # 0.3 Basophils # 0.0 Nucleated Red Blood Cells # 0.0 Test 07/09/16 09:05 07/09/16 11:26 Bedside Glucose 81 115 Medications Medications Current Medications Carvedilol (Coreg) 3.125 mg BID PO Last administered on 07/09/16 09:58; Admin Dose 3.125 MG; Start 07/06/16 at 21:00 Docusate Sodium (Colace) 100 mg BID PO Last administered on 07/09/16 09:57; Admin Dose 100 MG; Start 07/06/16 at 21:00 Insulin Glargine (Lantus) 8 unit QHS SC Last administered on 07/08/16 21:24; Admin Dose 8 UNIT; Start 07/06/16 at 21:00 Losartan Potassium (Cozaar) 100 mg DAILY PO Last administered on 07/09/16 09: 59; Admin Dose 100 MG; Start 07/07/16 at 09:00 Miscellaneous Information 1 ea NOTE XX ; Start 07/06/16 at 18:30 Glucose (Glutose) 15 gm Q15M PRN PO DECREASED GLUCOSE; Start 07/06/16 at 18:30 Glucose (Glutose) 22.5 gm Q15M PRN PO DECREASED GLUCOSE; Start 07/06/16 at 18: 30 Dextrose (D50w Syringe) 25 ml Q15M PRN IV DECREASED GLUCOSE; Start 07/06/16 at 18:30 Dextrose (D50w Syringe) 50 ml Q15M PRN IV DECREASED GLUCOSE; Start 07/06/16 at 18:30 Glucagon (Glucagen) 1 mg Q15M PRN IM DECREASED GLUCOSE; Start 07/06/16 at 18:30 Glucose (Glutose) 15 gm Q15M PRN BUCCAL DECREASED GLUCOSE; Start 07/06/16 at 18 :30 Aspirin (Halfprin) 81 mg DAILY PO Last administered on 07/09/16 09:57; Admin Dose 81 MG; Start 07/07/16 at 09:00 Diagnostic Test (Pha) (Accu-Chek) 1 ea 02 XX Last administered on 07/09/16 02: 01; Admin Dose 1 EA; Start 07/07/16 at 02:00 Guaifenesin (Robitussin Liquid Cup) 200 mg Q4H PRN PO COUGH Last administered on 07/07/16 16:23; Admin Dose 200 MG; Start 07/07/16 at 06:30 Pantoprazole (Protonix Tab) 40 mg DAILY@06 PO Last administered on 07/09/16 06 :25; Admin Dose 40 MG; Start 07/08/16 at 06:00 Nifedipine (Procardia Xl) 60 mg DAILY PO Last administered on 07/09/16 09:58; Admin Dose 60 MG; Start 07/07/16 at 16:30 Levothyroxine Sodium 50 mcg 50 mcg DAILY@06 PO Last administered on 07/09/16 06:25; Admin Dose 50 MCG; Start 07/08/16 at 06:00 Levofloxacin/ Dextrose (Levaquin 250 Mg/ D5W 50 ml (Pmx)) 50 ml @ 50 mls/hr Q24H IVPB ; Start 07/09/16 at 16:00 PA GALAN MD Jul 09, 2016 16:55
[2016-07-09] MEDS: LEVOFLOXACIN 250MG/D5W (PMX) 50 ML IVPB SCH (17:27)
[2016-07-09] MEDS: INSULIN GLARGINE [LANtus] 3 ML PEN SC SCH (20:45)
[2016-07-10] VITALS (10 sets, daily range): BP systolic 123–190; BP diastolic 66–91; PULSE 58–74; RESP 16–20
[2016-07-10] MEDS: ACCU-CHEK XX SCH ×2 (01:44→02:39)
[2016-07-10] MEDS: PANTOPRAZOLE (EC) 40 MG TAB PO SCH (05:27)
[2016-07-10] MEDS: LEVOTHYROXINE 50 MCG TAB PO SCH (05:27)
[2016-07-10] MEDS: INSULIN ASPART [NOVOLOG] 3 ML PEN SC SCH ×4 (08:00→20:14)
[2016-07-10] MEDS: ASPIRIN (EC) 81 MG TAB PO SCH (09:14)
[2016-07-10] MEDS: NIFEdipine (XL) 60 MG TAB PO SCH (09:14)
[2016-07-10] MEDS: LOSARTAN 50 MG TAB PO SCH (09:15)
[2016-07-10] MEDS: DOCUSATE SODIUM 100 MG CAP PO SCH ×2 (09:15→20:11)
[2016-07-10] MEDS ORDERED: BARIUM SULFATE 135 ML (E-Z HD) PO ONE (15:38)
--- NOTE | 2016-07-10 15:59 | PN ---
Date/Time of Note Date/Time of Note DATE: 07/10/16 TIME: 15:58 Assessment/Plan VTE Prophylaxis VTE Prophylaxis Intervention: SCD's Lines/Catheters IV Catheter Type (from Nrsg): PORT-A-CATH Urinary Cath still in place: No Assessment/Plan Assessment/Plan 1. Severe symptomatic anemia. 2 units of PRBC transfusion, improved 2. HTN, controlled 3. Chronic aortic stenosis. 4. Community acquired pneumonia, levaquin 5. Diabetes type 2, on insulin, stable 6. Mild thrombocytopenia. 7. History of breast cancer status post left-sided mastectomy. 8. PENICILLIN AND CEFTRIAXONE ALLERGY. 9. History of thoracentesis x2 in the past. 10. Chronic gastritis. 11. Hypothyroidism, synthroid 12. Dysphgia, esophagram and video swallow study Subjective 24 Hr Interval Summary Free Text/Dictation no SOB but has dysphagia Exam/Review of Systems Vital Signs Vitals Vital Signs Date Time Temp Pulse Resp B/P Pulse Ox O2 Delivery O2 Flow Rate FiO2 07/10/16 12:41 72 07/10/16 11:44 98.0 19 123/87 99 07/08/16 17:45 21 07/08/16 16:00 Room Air 07/06/16 12:13 2 Intake and Output 07/09/16 07/09/16 07/10/16 15:00 23:00 07:00 Intake Total 480 ml 240 ml Balance 480 ml 240 ml Exam Constitutional: alert, oriented, well developed Psych: nl mood/affect, no complaints Head: atraumatic, normocephalic Eyes: EOMI, nl conjunctiva, nl lids ENMT: nl external ears & nose, nl lips & teeth, nl nasal mucosa & septum Neck: non-tender, supple Respiratory: clear to auscultation, normal air movement, No congested cough, No crackles/rales, No diminished breath sounds, No intercostal retraction, No labored breathing, No other, No respirations, No tactile fremitus, No wheezing Cardiovascular: nl pulses, regular rate and rhythm, No S3, No S4, No bruits, No diastolic murmur, No edema, No gallop, No irregular rhythm, No jugular venous distention (JVD), No murmurs/extra sounds, No other, No rub, No systolic murmur Gastrointestinal: nl liver, spleen, non-tender, soft, No ascites, No bowel sounds, No distended, No firm, No hepatomegaly, No mass , No other, No rebound or guarding, No splenomegaly, No surgical scars, No tender Musculoskeletal: nl extremities to inspection Extremities: normal pulses, No calf tenderness, No clubbing, No cyanosis, No edema, No other, No palpable cord, No pitting pedal edema, No tenderness 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, nl mental status, nl speech, nl strength Skin: nl turgor Lymph: nl lymph nodes Results Result Diagram: 07/09/16 0639 07/09/16 0625 Results 24 hrs Laboratory Tests Test 07/09/16 17:22 07/09/16 20:41 07/10/16 01:43 07/10/16 07:31 Bedside Glucose 157 250 H 125 87 Test 07/10/16 12:11 Bedside Glucose 107 Medications Medications Current Medications Carvedilol (Coreg) 3.125 mg BID PO Last administered on 07/10/16 09:15; Admin Dose 3.125 MG; Start 07/06/16 at 21:00 Docusate Sodium (Colace) 100 mg BID PO Last administered on 07/10/16 09:15; Admin Dose 100 MG; Start 07/06/16 at 21:00 Insulin Glargine (Lantus) 8 unit QHS SC Last administered on 07/09/16 20:45; Admin Dose 8 UNIT; Start 07/06/16 at 21:00 Losartan Potassium (Cozaar) 100 mg DAILY PO Last administered on 07/10/16 09: 15; Admin Dose 100 MG; Start 07/07/16 at 09:00 Miscellaneous Information 1 ea NOTE XX ; Start 07/06/16 at 18:30 Glucose (Glutose) 15 gm Q15M PRN PO DECREASED GLUCOSE; Start 07/06/16 at 18:30 Glucose (Glutose) 22.5 gm Q15M PRN PO DECREASED GLUCOSE; Start 07/06/16 at 18: 30 Dextrose (D50w Syringe) 25 ml Q15M PRN IV DECREASED GLUCOSE; Start 07/06/16 at 18:30 Dextrose (D50w Syringe) 50 ml Q15M PRN IV DECREASED GLUCOSE; Start 07/06/16 at 18:30 Glucagon (Glucagen) 1 mg Q15M PRN IM DECREASED GLUCOSE; Start 07/06/16 at 18:30 Glucose (Glutose) 15 gm Q15M PRN BUCCAL DECREASED GLUCOSE; Start 07/06/16 at 18 :30 Aspirin (Halfprin) 81 mg DAILY PO Last administered on 07/10/16 09:14; Admin Dose 81 MG; Start 07/07/16 at 09:00 Diagnostic Test (Pha) (Accu-Chek) 1 ea 02 XX Last administered on 07/10/16 02: 39; Admin Dose 1 EA; Start 07/07/16 at 02:00 Guaifenesin (Robitussin Liquid Cup) 200 mg Q4H PRN PO COUGH Last administered on 07/07/16 16:23; Admin Dose 200 MG; Start 07/07/16 at 06:30 Pantoprazole (Protonix Tab) 40 mg DAILY@06 PO Last administered on 07/10/16 05 :27; Admin Dose 40 MG; Start 07/08/16 at 06:00 Nifedipine (Procardia Xl) 60 mg DAILY PO Last administered on 07/10/16 09:14; Admin Dose 60 MG; Start 07/07/16 at 16:30 Levothyroxine Sodium 50 mcg 50 mcg DAILY@06 PO Last administered on 07/10/16 05:27; Admin Dose 50 MCG; Start 07/08/16 at 06:00 Levofloxacin/ Dextrose (Levaquin 250 Mg/ D5W 50 ml (Pmx)) 50 ml @ 50 mls/hr Q24H IVPB Last administered on 07/09/16 17:27; Admin Dose 50 MLS/HR; Start at 16:00 PA GALAN MD Jul 10, 2016 15:59
[2016-07-10] MEDS: LEVOFLOXACIN 250MG/D5W (PMX) 50 ML IVPB SCH (16:54)
--- NOTE | 2016-07-10 17:58 | RADRPT ---
PROCEDURE: Radiological examination of the esophagus CLINICAL INDICATION: Dysphagia TECHNIQUE: The patient was NPO. The patient was given 8 ounces of barium with CO2 crystals orally via a cup. Subsequently videofluoroscopy was performed was performed. Routine esophageal images we re obtained. Fluoroscopy time: 2.1 min COMPARISON: No comparison study available. FINDINGS: There is a a large diverticulum projecting off the posterior aspect of the upper esophagus measuring up to 3.6 x 1.8 cm consistent with a Zenker's diverticulum. Ingested oral contrast is noted to kellee e within this diverticulum. The remainder of the esophagus is unremarkable. No hiatal hernia ident ified. No evidence of gastroesophageal reflux. No evidence of esophagitis. No esophageal mass identi fied. Limited views of the stomach are unremarkable. RPTAT: AA IMPRESSION: Large Zenker's diverticulum. Physician Alireza Date Time Electronically viewed and signed by Physician Alireza on 07/10/2016 17:58 /
--- NOTE | 2016-07-10 18:00 | RADRPT ---
PROCEDURE: Video swallow examination of the esophagus CLINICAL INDICATION: aspiration TECHNIQUE: Real time video fluoroscopy of the lateral neck was performed. The patient was given b arium in multiple different consistencies by the speech pathologist. Fluoroscopy time: 2.1 minutes COMPARISON: None. FINDINGS: A large Zenker's diverticulum is noted with laryngeal penetration with purees. IMPRESSION: Large Zenker's diverticulum. Please refer to the speech pathology notes for more information and recommendations. RPTAT: KK Physician Alireza Date Time Electronically viewed and signed by Physician Alireza on 07/10/2016 18:00 /
[2016-07-10] MEDS: INSULIN GLARGINE [LANtus] 3 ML PEN SC SCH (20:14)
[2016-07-11] VITALS (13 sets, daily range): BP systolic 114–184; BP diastolic 57–84; PULSE 55–73; RESP 17–19
[2016-07-11] MEDS: ACCU-CHEK XX SCH (02:00)
[2016-07-11] MEDS: PANTOPRAZOLE (EC) 40 MG TAB PO SCH (05:21)
[2016-07-11] MEDS: LEVOTHYROXINE 50 MCG TAB PO SCH (05:22)
[2016-07-11] MEDS: INSULIN ASPART [NOVOLOG] 3 ML PEN SC SCH ×4 (08:00→20:15)
[2016-07-11] MEDS: LOSARTAN 50 MG TAB PO SCH (08:31)
[2016-07-11] MEDS: NIFEdipine (XL) 60 MG TAB PO SCH ×2 (08:32→20:13)
[2016-07-11] MEDS: ASPIRIN (EC) 81 MG TAB PO SCH (08:32)
[2016-07-11] MEDS: DOCUSATE SODIUM 100 MG CAP PO SCH ×2 (08:32→20:13)
--- NOTE | 2016-07-11 11:34 | PN ---
DATE: 07/11/2016 SUBJECTIVE DATA: Complains of frequent cough and sputum production with swallowing. Denies any dyspnea. OBJECTIVE DATA: VITAL SIGNS: Temperature 98.0, pulse rate 72, respiratory rate 18, blood pressure 127/60, oxygen saturation 97% on room air. GENERAL: This is a thin, frail-looking female lying in bed in no apparent distress. HEENT: Head normocephalic and atraumatic. Eyes: Anicteric sclerae. Conjunctivae clear. ENT: Nasal septum is midline. Oral mucosa is dry oral mucosa is dry. NECK: Supple. No JVD noticed. RESPIRATORY: Bilaterally diminished breath sounds. No adventitious breath sounds. No use of accessory muscles of respiration. CARDIAC: Regular rate and rhythm with a grade III/ systolic ejection murmur. ABDOMEN: Soft, nontender and nondistended. Bowel sounds positive in all 4 quadrants. GENITOURINARY: Deferred. EXTREMITIES: No cyanosis, no clubbing, no edema. Right plantar callus. There is no edema. Peripheral pulses palpable. NEUROLOGIC: The patient is awake, alert and oriented. Cranial nerves are grossly intact. LABORATORY AND DIAGNOSTIC DATA: There are no labs for today. ASSESSMENT AND PLAN: 1. Acute on chronic congestive heart failure exacerbation. Diastolic dysfunction. Improved. The patient has been ruled out for any underlying acute coronary syndrome. 2. Right lower lobe pneumonia. Continue antibiotics. There is no evidence of any septic shock. 3. Dysphagia. Status post evaluation by speech therapy. Status post barium swallow evaluation that is showing a large Zenker's diverticulum. Continue pureed diet. We will get gastroenterology on the case. 4. Moderate to severe aortic stenosis. Avoid rapid afterload reduction. The patient ideally needs surgical intervention. However, the patient has multiple comorbidities that put the patient at high risk for any surgical procedure. 5. Normocytic normochromic anemia. Status post 2 units of PRBC transfusion. Stool for occult blood pending. Iron panel showing low iron saturation. 6. Essential hypertension. Continue antihypertensives. The patient's antihypertensives will be adjusted to obtain optimum blood pressure control. 7. Type 2 diabetes mellitus. Hemoglobin A1c is 6.7. Continue sliding scale insulin. Blood sugars fairly well controlled. 8. Hypothyroidism. Continue Synthroid. 9. Pulmonary hypertension. PA systolic pressure of 64 mmHg as per 2D echocardiogram. The patient also has moderate tricuspid regurgitation, the possible reason for her underlying pulmonary hypertension. We will monitor. 10. Fluid, electrolytes and nutrition. Carbohydrate controlled diet in pureed form. 11. Deep venous thrombosis prophylaxis. Bilateral sequential compression devices. 12. Gastrointestinal prophylaxis. Proton pump inhibitors. PLAN: Obtain gastroenterology consult. Obtain a podiatric consult for right foot callus. Adjust antihypertensives to obtain optimal blood pressure control. Case discussed with Dr. Zavaleta. MELIDA ZAVALETA MD, AM/MARÍA Conf#: [id number] DID#: [id number]
[2016-07-11] MEDS: ACETAMINOPHEN 500 MG TAB PO PRN (11:53)
--- NOTE | 2016-07-11 13:46 | CONS ---
Date/Time of Note Date/Time of Note DATE: 07/11/16 TIME: 13:45 Assessment/Plan Assessment/Plan Additional Assessment/Plan Assessment : * Dysphagia /newly found large Zenker's diverticulum * Severe symptomatic anemia. * Rule out GI bleeding * Mild congestive heart failure exacerbation, likely diastolic. * Chronic aortic stenosis. * High blood pressure. * Diabetes type 2 * Mild thrombocytopenia. * History of breast cancer status post left-sided mastectomy. * PENICILLIN AND CEFTRIAXONE ALLERGY. * History of thoracentesis x2 in the past. * Right lower lobe consolidation Plan: * EGD Wednesday to address severe anemia, may consider colonoscopy as she has never had one given significance of anemia * Obtain ENT/thoracic surgery consultation to address anchor diverticulum which is severely symptomatic * Monitor H&H, transfuse as necessary Consultation Date/Type/Reason Admit Date/Time Jul 06, 2016 at 14:11 Hx of Present Illness 70-year-old female with previous history of dysphagia evaluated and found to have esophagitis and gastritis. Patient is hospitalized with complaints of shortness of breath, peripheral edema. The patient is found to have decompensated CHF and also significant anemia with a hemoglobin of 7.3. The patient has been severely anemic previously. On specific questioning the patient will appears to be reliable denies hematemesis, melena or hematochezia. The patient also complains of chronic dysphagia and on this occasion she underwent an barium swallow which showed a very significant Zenker diverticulum which may be contributing to her problem. This is anchor was not identified on 2 previous endoscopies (not unusual). The patient has been transfused and is comfortable at the present time. She continues to experience significant difficulty swallowing. From a gastrointestinal point of view the patient would benefit from endoscopic examination and she should also be evaluated by ENT/thoracic surgery for possible removal of Zenker diverticulum as she appears to be significantly symptomatic with this. I will plan endoscopy early next week to address her significant anemia. The patient cannot recall ever having colonoscopy this may also be advisable given the severity of her anemia. Psychological: nl mood/affect, no complaints Past Medical History 1. High blood pressure. 2. Diabetes. 3. Congestive heart failure. 4. History of aortic stenosis. 5. History of left breast cancer status post left-sided mastectomy. 6. Chronic arthritis status post right knee surgery. 7. Positive history of mycoplasma infection in the past. 8. Thoracentesis x2. 9. Chronic gastritis with last EGD: 04/11/2015. 10. Multiple urinary tract infections. Past Surgical History Left mastectomy Family History Significant Family History: no pertinent family hx Social History Alcohol Use: none Smoking Status: Never smoker Drug Use: none Exam/Review of Systems Vital Signs Vitals Vital Signs Date Time Temp Pulse Resp B/P Pulse Ox O2 Delivery O2 Flow Rate FiO2 07/11/16 12:15 68 07/11/16 11:44 98.1 18 114/57 96 07/08/16 17:45 21 07/08/16 16:00 Room Air Intake and Output 07/10/16 07/10/16 07/11/16 15:00 23:00 07:00 Intake Total 300 ml Balance 300 ml Exam Constitutional: alert, oriented, well developed Psych: nl mood/affect, no complaints Head: atraumatic, normocephalic Eyes: EOMI, PERRL, nl conjunctiva, nl lids, nl sclera ENMT: nl external ears & nose, nl lips & teeth, nl nasal mucosa & septum Neck: non-tender, supple Respiratory: clear to auscultation, normal air movement Cardiovascular: nl pulses, regular rate and rhythm Gastrointestinal: nl liver, spleen, non-tender, soft Musculoskeletal: nl extremities to inspection Extremities: normal pulses Skin: nl turgor, No rash or lesions Lymph: nl lymph nodes Results Result Diagram: 07/09/16 0639 07/09/16 0625 Results 24 hrs Laboratory Tests Test 07/10/16 16:59 07/10/16 20:07 07/11/16 02:14 07/11/16 07:58 Bedside Glucose 224 H 210 87 104 Test 07/11/16 11:52 Bedside Glucose 202 Medications Medications Current Medications Carvedilol (Coreg) 3.125 mg BID PO Last administered on 07/11/16 08:31; Admin Dose 3.125 MG; Start 07/06/16 at 21:00 Docusate Sodium (Colace) 100 mg BID PO Last administered on 07/11/16 08:32; Admin Dose 100 MG; Start 07/06/16 at 21:00 Insulin Glargine (Lantus) 8 unit QHS SC Last administered on 07/10/16 20:14; Admin Dose 8 UNIT; Start 07/06/16 at 21:00 Losartan Potassium (Cozaar) 100 mg DAILY PO Last administered on 07/11/16 08: 31; Admin Dose 100 MG; Start 07/07/16 at 09:00 Miscellaneous Information 1 ea NOTE XX ; Start 07/06/16 at 18:30 Glucose (Glutose) 15 gm Q15M PRN PO DECREASED GLUCOSE; Start 07/06/16 at 18:30 Glucose (Glutose) 22.5 gm Q15M PRN PO DECREASED GLUCOSE; Start 07/06/16 at 18: 30 Dextrose (D50w Syringe) 25 ml Q15M PRN IV DECREASED GLUCOSE; Start 07/06/16 at 18:30 Dextrose (D50w Syringe) 50 ml Q15M PRN IV DECREASED GLUCOSE; Start 07/06/16 at 18:30 Glucagon (Glucagen) 1 mg Q15M PRN IM DECREASED GLUCOSE; Start 07/06/16 at 18:30 Glucose (Glutose) 15 gm Q15M PRN BUCCAL DECREASED GLUCOSE; Start 07/06/16 at 18 :30 Aspirin (Halfprin) 81 mg DAILY PO Last administered on 07/11/16 08:32; Admin Dose 81 MG; Start 07/07/16 at 09:00 Diagnostic Test (Pha) (Accu-Chek) 1 ea 02 XX Last administered on 07/10/16 02: 39; Admin Dose 1 EA; Start 07/07/16 at 02:00 Guaifenesin (Robitussin Liquid Cup) 200 mg Q4H PRN PO COUGH Last administered on 07/07/16 16:23; Admin Dose 200 MG; Start 07/07/16 at 06:30 Pantoprazole (Protonix Tab) 40 mg DAILY@06 PO Last administered on 07/11/16 05 :21; Admin Dose 40 MG; Start 07/08/16 at 06:00 Levothyroxine Sodium 50 mcg 50 mcg DAILY@06 PO Last administered on 07/11/16 05:22; Admin Dose 50 MCG; Start 07/08/16 at 06:00 Levofloxacin/ Dextrose (Levaquin 250 Mg/ D5W 50 ml (Pmx)) 50 ml @ 50 mls/hr Q24H IVPB Last administered on 07/10/16 16:54; Admin Dose 50 MLS/HR; Start at 16:00 Nifedipine (Procardia Xl) 60 mg BID PO ; Start 07/11/16 at 21:00 Hydralazine HCl (Apresoline) 10 mg Q6H PRN IV SBP>160; Start 07/11/16 at 11:00 Acetaminophen (Tylenol Tab) 500 mg Q6H PRN PO PAIN AND OR ELEVATED TEMP Last administered on 07/11/16 11:53; Admin Dose 500 MG; Start 07/11/16 at 11:30 LUDWIG ATKINSON MD Jul 11, 2016 13:46 Bedside Glucose 202 Medications Medications Current Medications Carvedilol (Coreg) 3.125 mg BID PO Last administered on 07/11/16 08:31; Admin Dose 3.125 MG; Start 07/06/16 at 21:00 Docusate Sodium (Colace) 100 mg BID PO Last administered on 07/11/16 08:32; Admin Dose 100 MG; Start 07/06/16 at 21:00 Insulin Glargine (Lantus) 8 unit QHS SC Last administered on 07/10/16 20:14; Admin Dose 8 UNIT; Start 07/06/16 at 21:00 Losartan Potassium (Cozaar) 100 mg DAILY PO Last administered on 07/11/16 08: 31; Admin Dose 100 MG; Start 07/07/16 at 09:00 Miscellaneous Information 1 ea NOTE XX ; Start 07/06/16 at 18:30 Glucose (Glutose) 15 gm Q15M PRN PO DECREASED GLUCOSE; Start 07/06/16 at 18:30 Glucose (Glutose) 22.5 gm Q15M PRN PO DECREASED GLUCOSE; Start 07/06/16 at 18: 30 Dextrose (D50w Syringe) 25 ml Q15M PRN IV DECREASED GLUCOSE; Start 07/06/16 at 18:30 Dextrose (D50w Syringe) 50 ml Q15M PRN IV DECREASED GLUCOSE; Start 07/06/16 at 18:30 Glucagon (Glucagen) 1 mg Q15M PRN IM DECREASED GLUCOSE; Start 07/06/16 at 18:30 Glucose (Glutose) 15 gm Q15M PRN BUCCAL DECREASED GLUCOSE; Start 07/06/16 at 18 :30 Aspirin (Halfprin) 81 mg DAILY PO Last administered on 07/11/16 08:32; Admin Dose 81 MG; Start 07/07/16 at 09:00 Diagnostic Test (Pha) (Accu-Chek) 1 ea 02 XX Last administered on 07/10/16 02: 39; Admin Dose 1 EA; Start 07/07/16 at 02:00 Guaifenesin (Robitussin Liquid Cup) 200 mg Q4H PRN PO COUGH Last administered on 07/07/16 16:23; Admin Dose 200 MG; Start 07/07/16 at 06:30 Pantoprazole (Protonix Tab) 40 mg DAILY@06 PO Last administered on 07/11/16 05 :21; Admin Dose 40 MG; Start 07/08/16 at 06:00 Levothyroxine Sodium 50 mcg 50 mcg DAILY@06 PO Last administered on 07/11/16 05:22; Admin Dose 50 MCG; Start 07/08/16 at 06:00 Levofloxacin/ Dextrose (Levaquin 250 Mg/ D5W 50 ml (Pmx)) 50 ml @ 50 mls/hr Q24H IVPB Last administered on 07/10/16 16:54; Admin Dose 50 MLS/HR; Start at 16:00 Nifedipine (Procardia Xl) 60 mg BID PO ; Start 07/11/16 at 21:00 Hydralazine HCl (Apresoline) 10 mg Q6H PRN IV SBP>160; Start 07/11/16 at 11:00 Acetaminophen (Tylenol Tab) 500 mg Q6H PRN PO PAIN AND OR ELEVATED TEMP Last administered on 07/11/16 11:53; Admin Dose 500 MG; Start 07/11/16 at 11:30 LUDWIG ATKINSON MD Jul 11, 2016 13:46
[2016-07-11] MEDS: LEVOFLOXACIN 250MG/D5W (PMX) 50 ML IVPB SCH (15:59)
[2016-07-11] MEDS: INSULIN GLARGINE [LANtus] 3 ML PEN SC SCH (20:15)
[2016-07-11] MEDS: hydrALAzine 20 MG INJ IV PRN (23:56)
[2016-07-12] VITALS (12 sets, daily range): BP systolic 130–193; BP diastolic 61–85; PULSE 57–76; RESP 16–20
[2016-07-12] MEDS: ACCU-CHEK XX SCH (02:00)
[2016-07-12] MEDS: LEVOTHYROXINE 50 MCG TAB PO SCH (05:09)
[2016-07-12] MEDS: PANTOPRAZOLE (EC) 40 MG TAB PO SCH (05:09)
[2016-07-12 07:48] LABS: ADD SCAN DIFF NO; BASOPHILS % 0.4 % (0.0-2.0); EOSINOPHILS # 0.3 10^3/ul (0.0-0.5); HEMATOCRIT 31.4 % (37.0-47.0); HEMOGLOBIN 10.4 g/dl (12.0-16.0); LYMPHOCYTES # 1.9 10^3/ul (0.8-2.9); LYMPHOCYTES % 27.3 % (15.0-51.0); MEAN CORPUSCULAR HEMOGLOBIN 30.1 pg (29.0-33.0); MEAN CORPUSCULAR HGB CONC 33.1 g/dl (32.0-37.0); MEAN CORPUSCULAR VOLUME 90.8 fl (82.0-101.0); MEAN PLATELET VOLUME 9.7 fl (7.4-10.4); MONOCYTE # 0.6 10^3/ul (0.3-0.9); MONOCYTES % 9.5 % (0.0-11.0); NEUTROPHILS % 58.5 % (39.0-77.0); PLATELET COUNT 128 10^3/UL (140-415); RED BLOOD COUNT 3.46 10^6/ul (4.20-5.40); WHITE BLOOD COUNT 6.8 10^3/ul (4.8-10.8)
[2016-07-12 07:51] LABS: MAGNESIUM 2.1 mg/dl (1.7-2.5); PHOSPHORUS 4.7 mg/dl (2.5-4.9)
--- NOTE | 2016-07-12 07:56 | RADRPT ---
PROCEDURE: XR Chest 1 view. CLINICAL INDICATION: Shortness of breath, infiltrates. TECHNIQUE: AP views of the chest were obtained. COMPARISON: July 06, 2016 FINDINGS: The heart is large. Calcified atherosclerosis is noted in the aorta. Right-sided chest port is stab le and appears in grossly appropriate location. Patchy atelectasis versus mild infiltrates are seen in the medial right lower lobe. Atelectasis is noted at the left lung base. Blunting of the left costophrenic angle is seen. Osseous structures are intact. IMPRESSION: Cardiomegaly with calcified atherosclerosis in the aorta. Atelectasis versus mild infiltrates in the medial right lower lobe. Atelectasis at the left lung base. Blunting of the left costophrenic angle that may reflect small pleural effusion. Overall appearance is unchanged from prior exam. RPTAT: AA .Main Escoto MD, Date Time Electronically viewed and signed by .Main Escoto MD, on 07/12/2016 07:55 .P/
[2016-07-12] MEDS: INSULIN ASPART [NOVOLOG] 3 ML PEN SC SCH ×4 (08:00→20:36)
[2016-07-12] MEDS: DOCUSATE SODIUM 100 MG CAP PO SCH ×2 (08:05→20:35)
[2016-07-12] MEDS: ASPIRIN (EC) 81 MG TAB PO SCH (08:06)
[2016-07-12] MEDS: NIFEdipine (XL) 60 MG TAB PO SCH ×2 (08:06→20:35)
[2016-07-12] MEDS: LOSARTAN 50 MG TAB PO SCH (08:07)
[2016-07-12 08:16] LABS: CREATININE 0.9 mg/dl (0.44-1.00)
[2016-07-12 08:17] LABS: CALCIUM 8.8 mg/dl (8.4-10.2); POTASSIUM 4.4 mmol/L (3.5-5.1)
--- NOTE | 2016-07-12 11:09 | PN ---
Date/Time of Note Date/Time of Note DATE: 07/12/16 TIME: 11:05 Assessment/Plan VTE Prophylaxis VTE Prophylaxis Intervention: SCD's Lines/Catheters [facility] portacath Urinary Cath still in place: No Assessment/Plan Assessment/Plan Dysphagia /newly found large Zenker's diverticulum * Severe symptomatic anemia. * Rule out GI bleeding * Mild congestive heart failure exacerbation, likely diastolic. * Chronic aortic stenosis. * High blood pressure. * Diabetes type 2 * Mild thrombocytopenia. * History of breast cancer status post left-sided mastectomy. * PENICILLIN AND CEFTRIAXONE ALLERGY. * History of thoracentesis x2 in the past. * Right lower lobe consolidation * * Plan * continue present management * EGD 07/13/2016 risk and benefit explained to patient ,and daughter Haily Lyle through telephone agreed with planned procedure Subjective 24 Hr Interval Summary Free Text/Dictation * Course reviewed with RN * patient seen and examined * still complains of dysphagia Exam/Review of Systems Vital Signs Vitals Vital Signs Date Time Temp Pulse Resp B/P Pulse Ox O2 Delivery O2 Flow Rate FiO2 07/12/16 08:12 60 07/12/16 07:56 97.9 18 168/79 98 07/08/16 17:45 21 07/08/16 16:00 Room Air Intake and Output 07/11/16 07/11/16 07/12/16 15:00 23:00 07:00 Intake Total 1000 ml 300 ml Balance 1000 ml 300 ml Exam Constitutional: alert, frail Head: normocephalic Eyes: nl sclera Neck: non-tender, supple Respiratory: clear to auscultation, diminished breath sounds, normal air movement Cardiovascular: nl pulses, regular rate and rhythm Gastrointestinal: nl liver, spleen, non-tender, soft Musculoskeletal: nl extremities to inspection Extremities: normal pulses Skin: nl turgor, rash or lesions Results Result Diagram: 07/12/16 0500 07/12/16 0705 Results 24 hrs Laboratory Tests Test 07/11/16 11:52 07/11/16 17:25 07/11/16 20:12 07/12/16 02:27 Bedside Glucose 202 129 191 101 Test 07/12/16 05:00 07/12/16 07:05 07/12/16 08:01 White Blood Count 6.8 Red Blood Count 3.46 L Hemoglobin 10.4 L Hematocrit 31.4 L Mean Corpuscular Volume 90.8 Mean Corpuscular Hemoglobin 30.1 Mean Corpuscular Hemoglobin Concent 33.1 Red Cell Distribution Width 14.0 Platelet Count 128 L Mean Platelet Volume 9.7 Neutrophils % 58.5 Lymphocytes % 27.3 Monocytes % 9.5 Eosinophils % 4.0 Basophils % 0.4 Nucleated Red Blood Cells % 0.0 Neutrophils # 4.0 Lymphocytes # 1.9 Monocytes # 0.6 Eosinophils # 0.3 Basophils # 0.0 Nucleated Red Blood Cells # 0.0 Sodium Level 139 Potassium Level 4.4 Chloride Level 104 Carbon Dioxide Level 26 Anion Gap 13 Blood Urea Nitrogen 37 H Creatinine 0.90 Glucose Level 135 Calcium Level 8.8 Phosphorus Level 4.7 Magnesium Level 2.1 Bedside Glucose 140 Medications Medications Current Medications Carvedilol (Coreg) 3.125 mg BID PO Last administered on 07/12/16 08:06; Admin Dose 3.125 MG; Start 07/06/16 at 21:00 Docusate Sodium (Colace) 100 mg BID PO Last administered on 07/12/16 08:05; Admin Dose 100 MG; Start 07/06/16 at 21:00 Insulin Glargine (Lantus) 8 unit QHS SC Last administered on 07/11/16 20:15; Admin Dose 8 UNIT; Start 07/06/16 at 21:00 Losartan Potassium (Cozaar) 100 mg DAILY PO Last administered on 07/12/16 08: 07; Admin Dose 100 MG; Start 07/07/16 at 09:00 Miscellaneous Information 1 ea NOTE XX ; Start 07/06/16 at 18:30 Glucose (Glutose) 15 gm Q15M PRN PO DECREASED GLUCOSE; Start 07/06/16 at 18:30 Glucose (Glutose) 22.5 gm Q15M PRN PO DECREASED GLUCOSE; Start 07/06/16 at 18: 30 Dextrose (D50w Syringe) 25 ml Q15M PRN IV DECREASED GLUCOSE; Start 07/06/16 at 18:30 Dextrose (D50w Syringe) 50 ml Q15M PRN IV DECREASED GLUCOSE; Start 07/06/16 at 18:30 Glucagon (Glucagen) 1 mg Q15M PRN IM DECREASED GLUCOSE; Start 07/06/16 at 18:30 Glucose (Glutose) 15 gm Q15M PRN BUCCAL DECREASED GLUCOSE; Start 07/06/16 at 18 :30 Aspirin (Halfprin) 81 mg DAILY PO Last administered on 07/12/16 08:06; Admin Dose 81 MG; Start 07/07/16 at 09:00 Diagnostic Test (Pha) (Accu-Chek) 1 ea 02 XX Last administered on 07/10/16 02: 39; Admin Dose 1 EA; Start 07/07/16 at 02:00 Guaifenesin (Robitussin Liquid Cup) 200 mg Q4H PRN PO COUGH Last administered on 07/07/16 16:23; Admin Dose 200 MG; Start 07/07/16 at 06:30 Pantoprazole (Protonix Tab) 40 mg DAILY@06 PO Last administered on 07/12/16 05 :09; Admin Dose 40 MG; Start 07/08/16 at 06:00 Levothyroxine Sodium 50 mcg 50 mcg DAILY@06 PO Last administered on 07/12/16 05:09; Admin Dose 50 MCG; Start 07/08/16 at 06:00 Levofloxacin/ Dextrose (Levaquin 250 Mg/ D5W 50 ml (Pmx)) 50 ml @ 50 mls/hr Q24H IVPB Last administered on 07/11/16 15:59; Admin Dose 50 MLS/HR; Start at 16:00 Nifedipine (Procardia Xl) 60 mg BID PO Last administered on 07/12/16 08:06; Admin Dose 60 MG; Start 07/11/16 at 21:00 Hydralazine HCl (Apresoline) 10 mg Q6H PRN IV SBP>160 Last administered on 07/11 23:56; Admin Dose 10 MG; Start 07/11/16 at 11:00 Acetaminophen (Tylenol Tab) 500 mg Q6H PRN PO PAIN AND OR ELEVATED TEMP Last administered on 07/11/16 11:53; Admin Dose 500 MG; Start 07/11/16 at 11:30 LUDWIG ATKINSON MD Jul 12, 2016 11:09
--- NOTE | 2016-07-12 12:11 | PN ---
Date/Time of Note Date/Time of Note DATE: 07/12/16 TIME: 12:10 Assessment/Plan VTE Prophylaxis VTE Prophylaxis Intervention: SCD's Lines/Catheters [facility] portacath Urinary Cath still in place: No Assessment/Plan Chief Complaint/Hosp Course 1. Acute on chronic congestive heart failure exacerbation. Diastolic dysfunction. Improved. The patient has been ruled out for any underlying acute coronary syndrome. 2. Right lower lobe pneumonia. Continue antibiotics. There is no evidence of any septic shock. 3. Dysphagia. Status post evaluation by speech therapy. Status post barium swallow evaluation that is showing a large Zenker's diverticulum. Continue pureed diet. Gastroenterology recommending thoracic surgery evaluation. However , the patient has a surgery scheduled for repair of Zenker's diverticulum at [facility]. 4. Moderate to severe aortic stenosis. Avoid rapid afterload reduction. The patient ideally needs surgical intervention. However, the patient has multiple comorbidities that put the patient at high risk for any surgical procedure. 5. Normocytic normochromic anemia. Status post 2 units of PRBC transfusion. Stool for occult blood pending. Iron panel showing low iron saturation. 6. Essential hypertension. Continue antihypertensives. The patient's antihypertensives will be adjusted to obtain optimum blood pressure control. 7. Type 2 diabetes mellitus. Hemoglobin A1c is 6.7. Continue sliding scale insulin. Blood sugars fairly well controlled. 8. Hypothyroidism. Continue Synthroid. 9. Pulmonary hypertension. PA systolic pressure of 64 mmHg as per 2D echocardiogram. The patient also has moderate tricuspid regurgitation, the possible reason for her underlying pulmonary hypertension. We will monitor. 10. Fluid, electrolytes and nutrition. Carbohydrate controlled diet in pureed form. 11. Deep venous thrombosis prophylaxis. Bilateral sequential compression devices. 12. Gastrointestinal prophylaxis. Proton pump inhibitors. PLAN: The patient scheduled for esophagogastroduodenoscopy on 07/13/2016. Case discussed with Dr. Streeter. Problems: Subjective 24 Hr Interval Summary Free Text/Dictation Complains of throat pain. Exam/Review of Systems Vital Signs Vitals Vital Signs Date Time Temp Pulse Resp B/P Pulse Ox O2 Delivery O2 Flow Rate FiO2 07/12/16 12:07 70 07/12/16 07:56 97.9 18 168/79 98 07/08/16 17:45 21 07/08/16 16:00 Room Air Intake and Output 407/11/16 07/12/16 15:00 23:00 07:00 Intake Total 1000 ml 300 ml Balance 1000 ml 300 ml Exam GENERAL: This is a thin, frail-looking female lying in bed in no apparent distress. HEENT: Head normocephalic and atraumatic. Eyes: Anicteric sclerae. Conjunctivae clear. ENT: Nasal septum is midline. Oral mucosa is dry oral mucosa is dry. NECK: Supple. No JVD noticed. RESPIRATORY: Bilaterally diminished breath sounds. No adventitious breath sounds. No use of accessory muscles of respiration. CARDIAC: Regular rate and rhythm with a grade III/ systolic ejection murmur. ABDOMEN: Soft, nontender and nondistended. Bowel sounds positive in all 4 quadrants. GENITOURINARY: Deferred. EXTREMITIES: No cyanosis, no clubbing, no edema. Right plantar callus. There is no edema. Peripheral pulses palpable. NEUROLOGIC: The patient is awake, alert and oriented. Cranial nerves are grossly intact. Results Result Diagram: 07/12/16 0500 07/12/16 0705 Results 24 hrs Laboratory Tests Test 07/11/16 17:25 07/11/16 20:12 07/12/16 02:27 07/12/16 05:00 Bedside Glucose 129 191 101 White Blood Count 6.8 Red Blood Count 3.46 L Hemoglobin 10.4 L Hematocrit 31.4 L Mean Corpuscular Volume 90.8 Mean Corpuscular Hemoglobin 30.1 Mean Corpuscular Hemoglobin Concent 33.1 Red Cell Distribution Width 14.0 Platelet Count 128 L Mean Platelet Volume 9.7 Neutrophils % 58.5 Lymphocytes % 27.3 Monocytes % 9.5 Eosinophils % 4.0 Basophils % 0.4 Nucleated Red Blood Cells % 0.0 Neutrophils # 4.0 Lymphocytes # 1.9 Monocytes # 0.6 Eosinophils # 0.3 Basophils # 0.0 Nucleated Red Blood Cells # 0.0 Test 07/12/16 07:05 07/12/16 08:01 07/12/16 11:40 Sodium Level 139 Potassium Level 4.4 Chloride Level 104 Carbon Dioxide Level 26 Anion Gap 13 Blood Urea Nitrogen 37 H Creatinine 0.90 Glucose Level 135 Calcium Level 8.8 Phosphorus Level 4.7 Magnesium Level 2.1 Bedside Glucose 140 156 Medications Medications Current Medications Carvedilol (Coreg) 3.125 mg BID PO Last administered on 07/12/16 08:06; Admin Dose 3.125 MG; Start 07/06/16 at 21:00 Docusate Sodium (Colace) 100 mg BID PO Last administered on 07/12/16 08:05; Admin Dose 100 MG; Start 07/06/16 at 21:00 Insulin Glargine (Lantus) 8 unit QHS SC Last administered on 07/11/16 20:15; Admin Dose 8 UNIT; Start 07/06/16 at 21:00 Losartan Potassium (Cozaar) 100 mg DAILY PO Last administered on 07/12/16 08: 07; Admin Dose 100 MG; Start 07/07/16 at 09:00 Miscellaneous Information 1 ea NOTE XX ; Start 07/06/16 at 18:30 Glucose (Glutose) 15 gm Q15M PRN PO DECREASED GLUCOSE; Start 07/06/16 at 18:30 Glucose (Glutose) 22.5 gm Q15M PRN PO DECREASED GLUCOSE; Start 07/06/16 at 18: 30 Dextrose (D50w Syringe) 25 ml Q15M PRN IV DECREASED GLUCOSE; Start 07/06/16 at 18:30 Dextrose (D50w Syringe) 50 ml Q15M PRN IV DECREASED GLUCOSE; Start 07/06/16 at 18:30 Glucagon (Glucagen) 1 mg Q15M PRN IM DECREASED GLUCOSE; Start 07/06/16 at 18:30 Glucose (Glutose) 15 gm Q15M PRN BUCCAL DECREASED GLUCOSE; Start 07/06/16 at 18 :30 Aspirin (Halfprin) 81 mg DAILY PO Last administered on 07/12/16 08:06; Admin Dose 81 MG; Start 07/07/16 at 09:00 Diagnostic Test (Pha) (Accu-Chek) 1 ea 02 XX Last administered on 07/10/16 02: 39; Admin Dose 1 EA; Start 07/07/16 at 02:00 Guaifenesin (Robitussin Liquid Cup) 200 mg Q4H PRN PO COUGH Last administered on 07/07/16 16:23; Admin Dose 200 MG; Start 07/07/16 at 06:30 Pantoprazole (Protonix Tab) 40 mg DAILY@06 PO Last administered on 07/12/16 05 :09; Admin Dose 40 MG; Start 07/08/16 at 06:00 Levothyroxine Sodium 50 mcg 50 mcg DAILY@06 PO Last administered on 07/12/16 05:09; Admin Dose 50 MCG; Start 07/08/16 at 06:00 Levofloxacin/ Dextrose (Levaquin 250 Mg/ D5W 50 ml (Pmx)) 50 ml @ 50 mls/hr Q24H IVPB Last administered on 07/11/16 15:59; Admin Dose 50 MLS/HR; Start at 16:00 Nifedipine (Procardia Xl) 60 mg BID PO Last administered on 07/12/16 08:06; Admin Dose 60 MG; Start 07/11/16 at 21:00 Hydralazine HCl (Apresoline) 10 mg Q6H PRN IV SBP>160 Last administered on 07/11 23:56; Admin Dose 10 MG; Start 07/11/16 at 11:00 Acetaminophen (Tylenol Tab) 500 mg Q6H PRN PO PAIN AND OR ELEVATED TEMP Last administered on 07/11/16 11:53; Admin Dose 500 MG; Start 07/11/16 at 11:30 MELIDA BLEVINS NP Jul 12, 2016 12:11
[2016-07-12] MEDS: LEVOFLOXACIN 250MG/D5W (PMX) 50 ML IVPB SCH (16:31)
[2016-07-12] MEDS: hydrALAzine 20 MG INJ IV PRN (20:32)
[2016-07-12] MEDS: INSULIN GLARGINE [LANtus] 3 ML PEN SC SCH (20:46)
[2016-07-13] VITALS (19 sets, daily range): BP systolic 136–178; BP diastolic 52–76; PULSE 56–88; RESP 13–25
[2016-07-13] MEDS: ACCU-CHEK XX SCH (02:00)
[2016-07-13] MEDS: PANTOPRAZOLE (EC) 40 MG TAB PO SCH (05:51)
[2016-07-13] MEDS: LEVOTHYROXINE 50 MCG TAB PO SCH (05:51)
[2016-07-13 07:16] LABS: ADD SCAN DIFF NO
[2016-07-13 07:23] LABS: BASOPHILS % 0.4 % (0.0-2.0); EOSINOPHILS # 0.3 10^3/ul (0.0-0.5); EOSINOPHILS % 4.2 % (0.0-7.0); HEMATOCRIT 32.9 % (37.0-47.0); HEMOGLOBIN 10.7 g/dl (12.0-16.0); LYMPHOCYTES # 1.8 10^3/ul (0.8-2.9); LYMPHOCYTES % 25.6 % (15.0-51.0); MEAN CORPUSCULAR HEMOGLOBIN 29.8 pg (29.0-33.0); MEAN CORPUSCULAR HGB CONC 32.5 g/dl (32.0-37.0); MEAN CORPUSCULAR VOLUME 91.6 fl (82.0-101.0); MEAN PLATELET VOLUME 9.5 fl (7.4-10.4); MONOCYTE # 0.6 10^3/ul (0.3-0.9); MONOCYTES % 9.1 % (0.0-11.0); NEUTROPHIL # 4.1 10^3/ul (1.6-7.5); NEUTROPHILS % 60.6 % (39.0-77.0); PLATELET COUNT 134 10^3/UL (140-415); RED BLOOD COUNT 3.59 10^6/ul (4.20-5.40); WHITE BLOOD COUNT 6.8 10^3/ul (4.8-10.8)
[2016-07-13 07:44] LABS: CALCIUM 8.9 mg/dl (8.4-10.2); CREATININE 0.84 mg/dl (0.44-1.00); POTASSIUM 4.6 mmol/L (3.5-5.1)
[2016-07-13] MEDS: INSULIN ASPART [NOVOLOG] 3 ML PEN SC SCH ×4 (07:57→20:26)
[2016-07-13] MEDS: LOSARTAN 50 MG TAB PO SCH (07:58)
[2016-07-13] MEDS: NIFEdipine (XL) 60 MG TAB PO SCH ×2 (07:59→20:28)
[2016-07-13] MEDS: DOCUSATE SODIUM 100 MG CAP PO SCH ×2 (08:10→20:26)
[2016-07-13] MEDS: ASPIRIN (EC) 81 MG TAB PO SCH (08:10)
[2016-07-13] MEDS: hydrALAzine 20 MG INJ IV PRN (10:17)
--- NOTE | 2016-07-13 14:55 | PN ---
Date/Time of Note Date/Time of Note DATE: 07/13/16 TIME: 14:49 Assessment/Plan VTE Prophylaxis VTE Prophylaxis Intervention: SCD's Lines/Catheters IV Catheter Type (from Nrsg): Saline Lock Urinary Cath still in place: No Assessment/Plan Assessment/Plan 1. Dysphagia. due to a large Zenker's diverticulum. EGD today, patient has a surgery scheduled fpair of Zenker's diverticulum at [facility]. 2. Severe symptomatic anemia. 2 units of PRBC transfusion, improved 3. Chronic aortic stenosis. 4. Community acquired pneumonia, levaquin 5. Diabetes type 2, on insulin, stable 6. Mild thrombocytopenia. 7. History of breast cancer status post left-sided mastectomy. 8. PENICILLIN AND CEFTRIAXONE ALLERGY. 9. Hypothyroidism, synthroid 10. Hypertension, antihypertensives Subjective 24 Hr Interval Summary Free Text/Dictation no nwe complaint, afebrile, no respiratory distress Exam/Review of Systems Vital Signs Vitals Vital Signs Date Time Temp Pulse Resp B/P Pulse Ox O2 Delivery O2 Flow Rate FiO2 07/13/16 12:14 97.8 61 18 151/68 94 Intake and Output 07/12/16 07/12/16 07/13/16 15:00 23:00 07:00 Intake Total 770 ml 600 ml Balance 770 ml 600 ml Exam Constitutional: alert, oriented, well developed Psych: nl mood/affect, no complaints Head: atraumatic, normocephalic Eyes: EOMI, PERRL, nl conjunctiva, nl lids ENMT: mucosa pink and moist, nl external ears & nose, nl lips & teeth, nl nasal mucosa & septum Neck: non-tender, supple Respiratory: clear to auscultation, normal air movement, No congested cough, No crackles/rales, No diminished breath sounds, No intercostal retraction, No labored breathing, No other, No respirations, No tactile fremitus, No wheezing Cardiovascular: nl pulses, regular rate and rhythm, systolic murmur, No S3, No S4, No bruits, No diastolic murmur, No edema, No gallop, No irregular rhythm, No jugular venous distention (JVD), No murmurs/extra sounds, No other, No rub Gastrointestinal: nl liver, spleen, non-tender, soft, No ascites, No bowel sounds, No distended, No firm, No hepatomegaly, No mass , No other, No rebound or guarding, No splenomegaly, No surgical scars, No tender Musculoskeletal: nl extremities to inspection, No joint tenderness, No muscle tone, No muscle weakness, No nl gait and stance, No other, No range of motion, No spine non-tender, No swelling Extremities: normal pulses, No calf tenderness, No clubbing, No cyanosis, No edema, No other, No palpable cord, No pitting pedal edema, No tenderness Neurological: OVERLOCK WAISTLINE JOINER II-XII intact, nl mental status, nl speech, nl strength Skin: nl turgor Lymph: nl lymph nodes Results Result Diagram: 07/13/1661907/13/16 06 Results 24 hrs Laboratory Tests Test 07/12/16 16:30 07/12/16 20:02 07/13/16 06:20 07/13/16 07:57 Bedside Glucose 128 172 115 White Blood Count 6.8 Red Blood Count 3.59 L Hemoglobin 10.7 L Hematocrit 32.9 L Mean Corpuscular Volume 91.6 Mean Corpuscular Hemoglobin 29.8 Mean Corpuscular Hemoglobin Concent 32.5 Red Cell Distribution Width 14.0 Platelet Count 134 L Mean Platelet Volume 9.5 Neutrophils % 60.6 Lymphocytes % 25.6 Monocytes % 9.1 Eosinophils % 4.2 Basophils % 0.4 Nucleated Red Blood Cells % 0.0 Neutrophils # 4.1 Lymphocytes # 1.8 Monocytes # 0.6 Eosinophils # 0.3 Basophils # 0.0 Nucleated Red Blood Cells # 0.0 Sodium Level 136 Potassium Level 4.6 Chloride Level 106 Carbon Dioxide Level 25 Anion Gap 10 Blood Urea Nitrogen 38 H Creatinine 0.84 Glucose Level 123 Calcium Level 8.9 Phosphorus Level 5.0 H Magnesium Level 2.0 Test 07/13/16 12:09 Bedside Glucose 123 Medications Medications Current Medications Carvedilol (Coreg) 3.125 mg BID PO Last administered on 07/13/16 07:58; Admin Dose 3.125 MG; Start 07/06/16 at 21:00 Docusate Sodium (Colace) 100 mg BID PO Last administered on 07/12/16 20:35; Admin Dose 100 MG; Start 07/06/16 at 21:00 Insulin Glargine (Lantus) 8 unit QHS SC Last administered on 4/23/17at 20:46; Admin Dose 8 UNIT; Start 07/06/16 at 21:00 Losartan Potassium (Cozaar) 100 mg DAILY PO Last administered on 07/13/16 07: 58; Admin Dose 100 MG; Start 07/07/16 at 09:00 Miscellaneous Information 1 ea NOTE XX ; Start 07/06/16 at 18:30 Glucose (Glutose) 15 gm Q15M PRN PO DECREASED GLUCOSE; Start 07/06/16 at 18:30 Glucose (Glutose) 22.5 gm Q15M PRN PO DECREASED GLUCOSE; Start 07/06/16 at 18: 30 Dextrose (D50w Syringe) 25 ml Q15M PRN IV DECREASED GLUCOSE; Start 07/06/16 at 18:30 Dextrose (D50w Syringe) 50 ml Q15M PRN IV DECREASED GLUCOSE; Start 07/06/16 at 18:30 Glucagon (Glucagen) 1 mg Q15M PRN IM DECREASED GLUCOSE; Start 07/06/16 at 18:30 Glucose (Glutose) 15 gm Q15M PRN BUCCAL DECREASED GLUCOSE; Start 07/06/16 at 18 :30 Aspirin (Halfprin) 81 mg DAILY PO Last administered on 07/12/16 08:06; Admin Dose 81 MG; Start 07/07/16 at 09:00 Diagnostic Test (Pha) (Accu-Chek) 1 ea 02 XX Last administered on 07/10/16 02: 39; Admin Dose 1 EA; Start 07/07/16 at 02:00 Guaifenesin (Robitussin Liquid Cup) 200 mg Q4H PRN PO COUGH Last administered on 07/07/16 16:23; Admin Dose 200 MG; Start 07/07/16 at 06:30 Pantoprazole (Protonix Tab) 40 mg DAILY@06 PO Last administered on 07/13/16 05 :51; Admin Dose 40 MG; Start 07/08/16 at 06:00 Levothyroxine Sodium (Synthroid) 50 mcg DAILY@06 PO Last administered on 05:51; Admin Dose 50 MCG; Start 07/08/16 at 06:00 Nifedipine (Procardia Xl) 60 mg BID PO Last administered on 07/13/16 07:59; Admin Dose 60 MG; Start 07/11/16 at 21:00 Hydralazine HCl (Apresoline) 10 mg Q6H PRN IV SBP>160 Last administered on 07/13 10:17; Admin Dose 10 MG; Start 07/11/16 at 11:00 Acetaminophen (Tylenol Tab) 500 mg Q6H PRN PO PAIN AND OR ELEVATED TEMP Last administered on 07/11/16 11:53; Admin Dose 500 MG; Start 07/11/16 at 11:30 Levofloxacin (Levaquin) 250 mg DAILY@06 PO ; Start 07/13/16 at 16:00 PA GALAN MD Jul 13, 2016 14:55
[2016-07-13] MEDS ORDERED: PHENYLephrine (100 MCG/ML) 5ML SYG ONE (16:29)
[2016-07-13] MEDS ORDERED: PROPOFOL 20 ML ONE (16:29)
[2016-07-13] MEDS: LEVOFLOXACIN 250 MG TAB PO SCH (17:37)
[2016-07-13] MEDS: ACETAMINOPHEN 500 MG TAB PO PRN (20:26)
[2016-07-13] MEDS: INSULIN GLARGINE [LANtus] 3 ML PEN SC SCH (20:32)
[2016-07-14] VITALS (10 sets, daily range): BP systolic 136–191; BP diastolic 65–86; PULSE 60–75; RESP 18–20
[2016-07-14] MEDS: ACCU-CHEK XX SCH (04:00)
--- NOTE | 2016-07-14 04:01 | GILP ---
DATE OF PROCEDURE: PROCEDURE: Esophagogastroduodenoscopy with biopsies. BRIEF HISTORY AND INDICATIONS: The patient is being evaluated for significant anemia and dysphagia. The patient has been identified as having a large Zenker diverticulum which may be contributory or causative of her dysphagia. PREMEDICATION: Monitored anesthesia care by anesthesiologist. SURGEON: Ludwig Tellez MD INSTRUMENT USED: Olympus panendoscope. TECHNIQUE: After informed consent, with the patient/relatives understanding the procedure, its indic ations, potential risks and complications, including but not limited to: allergic reaction, bleeding , perforation or infection, and after all pertinent questions were answered to the patients satisfac tion, the patient/relatives signed witnessed informed consent. Following this, premedication was administered slowly IV push under careful cardiovascular and respi ratory monitoring with pulse oximetry, automatic blood pressure and regional vice president life sales. Once the sedative effect was achieved the patient was place in the left lateral decubitus, the panen doscope was introduced and advanced under visual control. Careful examination of the upper gastrointestinal tract, both on insertion as well as withdrawal of the instrument disclosed the following findings: ESOPHAGUS: The distal esophagus shows no obvious entrance to the Zenker diverticulum on careful exa mination. There is significant erythema and edema and erosions in the distal esophagus. STOMACH: Upon entrance to the stomach, air was insufflated, the gastric sanchez distended normally. There is erythema and edema of the mucosa of a moderate degree. Biopsies were obtained to rule out H. pylori infection. PYLORUS: The pylorus appears patent and within normal limits, with no evidence of gastric outlet ob struction. DUODENUM: The duodenal mucosa was carefully examined in the duodenal bulb as well as the second por tion of the duodenum and appears unremarkable with no evidence of duodenitis, ulcer or neoplasm. The instrument was then withdrawn, the patient tolerated the procedure well and was transfer out of the endoscopy suite awake, and in good condition to continue recovery under observation IMPRESSION: 1. Erosive esophagitis. 2. Gastritis, rule out Helicobacter pylori infection. 3. No obvious entrance to Zenker diverticulum. PLAN: The patient will be continued on PPI therapy. She is apparently already scheduled for thorac ic surgical evaluation and removal of Zenker diverticulum at [facility]. Dictated By: LUDWIG TELLEZ MS/MARÍA Conf#: [id number] [facility]#: [id number]
[2016-07-14] MEDS: LEVOTHYROXINE 50 MCG TAB PO SCH (06:10)
[2016-07-14] MEDS: PANTOPRAZOLE (EC) 40 MG TAB PO SCH (06:10)
[2016-07-14] MEDS: LEVOFLOXACIN 250 MG TAB PO SCH (06:10)
[2016-07-14] MEDS: INSULIN ASPART [NOVOLOG] 3 ML PEN SC SCH ×3 (08:00→17:27)
[2016-07-14] MEDS: LOSARTAN 50 MG TAB PO SCH (08:27)
[2016-07-14] MEDS: ASPIRIN (EC) 81 MG TAB PO SCH (08:27)
[2016-07-14] MEDS: NIFEdipine (XL) 60 MG TAB PO SCH (08:27)
[2016-07-14] MEDS: DOCUSATE SODIUM 100 MG CAP PO SCH (08:27)
[2016-07-14] MEDS ORDERED: LEVO500T10 PO (16:48)
--- NOTE | 2016-07-14 16:53 | DS ---
Date/Time of Note Date/Time of Note DATE: 07/14/16 TIME: 16:46 Discharge Summary Admission/Discharge Info Admit Date/Time Jul 06, 2016 at 14:11 Discharge Date/Time Final Diagnosis 1. Dysphagia. due to a large Zenker's diverticulum. EGD today, patient has a surgery scheduled fpair of Zenker's diverticulum at [facility]. 2. Severe symptomatic anemia. 2 units of PRBC transfusion, improved 3. Chronic aortic stenosis. 4. Community acquired pneumonia, treated 5. Diabetes type 2, on insulin, stable 6. Mild thrombocytopenia. 7. History of breast cancer status post left-sided mastectomy. 8. PENICILLIN AND CEFTRIAXONE ALLERGY. 9. Hypothyroidism, synthroid 10. Hypertension, antihypertensives Patient Condition: Stable Hospital Course This is a 70-year-old female brought in by her daughter because of shortness of breath and bilateral lower extremity swelling and severe lethargy. The daughter is the one giving the history and reports orthopnea as well as dyspnea on exertion. She does have a history of congestive heart failure. There has been cough, but this is chronic for the patient. Productive of whitish phlegm. The patient was also found to be severely anemic in the emergency room, which the daughter says she has a history of, but she has not required transfusion. Her last hospitalization at this facility was in 03/2015. She has had no fevers. No syncopal episodes. No falls. No gross focal deficits have been noted. Denies dysuria or hematuria, but patient has had multiple urinary tract infections. Family has not noted black stools and the patient does not endorse same. CXR showed RLL infiltrates. She is on antibiotics for pneumonia. Symptoms improved. Afebrile. No shortness fo berath. Patient has dysphagia the esophagram indicates a large diverticulum projecting off the posterior aspect of the upper esophagus measuring up to 3.6 x 1.8 cm consistent with a Zenker's diverticulum. Patient will arrange for surgery in [facility]. EGD on 07/13/2016 revealed esophagitis and gastritis that she is on PPI. Home Meds Reported Medications Insulin Glargine* (Lantus*) 100 Unit/Ml Soln, 20 UNIT SC QHS, #1 VIAL 07/06/16 Insulin Aspart (Novolog Mix (70/30)) 100 Units/Ml Soln, 0 SC WITH MEALS, VIAL 07/06/16 Docusate Sodium* (Docusate Sodium*) 100 Mg Capsule, 100 MG PO BID, #60 CAP 03/28/15 Amlodipine Besylate* (Amlodipine Besylate*) 10 Mg Tablet, 10 MG PO DAILY, #30 TAB 03/28/15 Carvedilol* (Carvedilol*) 3.125 Mg Tablet, 3.125 MG PO DAILY, TAB 01/31/14 Losartan Potassium* (Losartan Potassium*) 100 Mg Tablet, 100 MG PO DAILY, TAB 10/07/13 Omeprazole* (Omeprazole*) 20 Mg Capsule.dr, 20 MG PO DAILY 05/26/13 Discontinued Reported Medications Furosemide* (Lasix*) 20 Mg Tablet, 20 MG PO DAILY, TAB 03/28/15 Follow-up Plan PCP in one week Pending Labs Laboratory Tests Test 07/13/16 17:37 07/13/16 20:23 07/14/16 04:22 07/14/16 07:57 Bedside Glucose 115mg/dL (70-220) 265mg/dL (70-220) 116mg/dL (70-220) 104mg/dL (70-220) Test 07/14/16 12:09 Bedside Glucose 185mg/dL (70-220) PA GALAN MD Jul 14, 2016 16:53
--- NOTE | 2016-07-14 17:28 | PN ---
Date/Time of Note Date/Time of Note DATE: 07/14/16 TIME: 17:22 Assessment/Plan VTE Prophylaxis VTE Prophylaxis Intervention: SCD's Lines/Catheters IV Catheter Type (from [facility]): Saline Lock Urinary Cath still in place: No Assessment/Plan Assessment/Plan Assessment * Dysphagia /newly found large Zenker's diverticulum * Severe symptomatic anemia.controlled EGD 07/13/2016 Erosive esophagitis. . Gastritis, rule out Helicobacter pylori infection. . No obvious entrance to Zenker diverticulum. Mild congestive heart failure exacerbation, likely diastolic. * Chronic aortic stenosis. * High blood pressure. * Diabetes type 2 * Mild thrombocytopenia. * History of breast cancer status post left-sided mastectomy. * PENICILLIN AND CEFTRIAXONE ALLERGY. * History of thoracentesis x2 in the past. * Right lower lobe consolidation Plan * continue PPI for 2 weeks * Stable for outpatient management Subjective 24 Hr Interval Summary Free Text/Dictation * Course reviewed with RN * Patient seen and examined * latest hemoglobin 10.7 * EGD 07/14/2016 * Erosive esophagitis. Gastritis, rule out Helicobacter pylori infection. No obvious entrance to Zenker diverticulum. Exam/Review of Systems Vital Signs Vitals Vital Signs Date Time Temp Pulse Resp B/P Pulse Ox O2 Delivery O2 Flow Rate FiO2 07/14/16 16:33 61 07/14/16 16:21 98.4 18 191/86 97 07/13/16 17:23 Room Air Intake and Output 07/13/16 07/13/16 07/14/16 15:00 23:00 07:00 Intake Total 300 ml 250 ml Balance 300 ml 250 ml Exam Constitutional: alert Eyes: nl conjunctiva, nl sclera Neck: non-tender, supple Respiratory: clear to auscultation Cardiovascular: regular rate and rhythm Gastrointestinal: bowel sounds, non-tender, soft, No rebound or guarding Musculoskeletal: nl extremities to inspection Extremities: normal pulses Results Result Diagram: 07/13/16 0620 07/13/16 0620 Results 24 hrs Laboratory Tests Test 07/13/16 17:37 07/13/16 20:23 07/14/16 04:22 07/14/16 07:57 Bedside Glucose 115 265 H 116 104 Test 07/14/16 12:09 07/14/16 17:15 Bedside Glucose 185 132 Medications Medications Current Medications Carvedilol (Coreg) 3.125 mg BID PO Last administered on 07/14/16 08:27; Admin Dose 3.125 MG; Start 07/06/16 at 21:00 Docusate Sodium (Colace) 100 mg BID PO Last administered on 07/14/16 08:27; Admin Dose 100 MG; Start 07/06/16 at 21:00 Insulin Glargine (Lantus) 8 unit QHS SC Last administered on 07/13/16 20:32; Admin Dose 8 UNIT; Start 07/06/16 at 21:00 Losartan Potassium (Cozaar) 100 mg DAILY PO Last administered on 07/14/16 08: 27; Admin Dose 100 MG; Start 07/07/16 at 09:00 Miscellaneous Information 1 ea NOTE XX ; Start 07/06/16 at 18:30 Glucose (Glutose) 15 gm Q15M PRN PO DECREASED GLUCOSE; Start 07/06/16 at 18:30 Glucose (Glutose) 22.5 gm Q15M PRN PO DECREASED GLUCOSE; Start 07/06/16 at 18: 30 Dextrose (D50w Syringe) 25 ml Q15M PRN IV DECREASED GLUCOSE; Start 07/06/16 at 18:30 Dextrose (D50w Syringe) 50 ml Q15M PRN IV DECREASED GLUCOSE; Start 07/06/16 at 18:30 Glucagon (Glucagen) 1 mg Q15M PRN IM DECREASED GLUCOSE; Start 07/06/16 at 18:30 Glucose (Glutose) 15 gm Q15M PRN BUCCAL DECREASED GLUCOSE; Start 07/06/16 at 18 :30 Aspirin (Halfprin) 81 mg DAILY PO Last administered on 07/14/16 08:27; Admin Dose 81 MG; Start 07/07/16 at 09:00 Diagnostic Test (Pha) (Accu-Chek) 1 ea 02 XX Last administered on 07/14/16 04: 00; Admin Dose 1 EA; Start 07/07/16 at 02:00 Guaifenesin (Robitussin Liquid Cup) 200 mg Q4H PRN PO COUGH Last administered on 07/07/16 16:23; Admin Dose 200 MG; Start 07/07/16 at 06:30 Pantoprazole (Protonix Tab) 40 mg DAILY@06 PO Last administered on 07/14/16 06 :10; Admin Dose 40 MG; Start 07/08/16 at 06:00 Levothyroxine Sodium (Synthroid) 50 mcg DAILY@06 PO Last administered on 06:10; Admin Dose 50 MCG; Start 07/08/16 at 06:00 Nifedipine (Procardia Xl) 60 mg BID PO Last administered on 07/14/16 08:27; Admin Dose 60 MG; Start 07/11/16 at 21:00 Hydralazine HCl (Apresoline) 10 mg Q6H PRN IV SBP>160 Last administered on 07/13 10:17; Admin Dose 10 MG; Start 07/11/16 at 11:00 Acetaminophen (Tylenol Tab) 500 mg Q6H PRN PO PAIN AND OR ELEVATED TEMP Last administered on 07/13/16 20:26; Admin Dose 500 MG; Start 07/11/16 at 11:30 Levofloxacin (Levaquin) 250 mg DAILY@06 PO Last administered on 07/14/16 06:10 ; Admin Dose 250 MG; Start 07/13/16 at 16:00 LUDWIG ATKINSON MD Jul 14, 2016 17:28
== END 2016-07-14 18:17 | disposition home or self-care (01) | DRG 291 ==
LOC: E/R 11:22 → MS4 14:11
PROVIDERS: ADMIT Family Medicine; ATTEND Family Medicine
PROC: 30233N1 Transfusion of Nonautologous Red Blood Cells into Peripheral Vein, Percutaneous Approach (ICD-10-PCS; 2016-07-07)
PROC: 0DB68ZX Excision of Stomach, Via Natural or Artificial Opening Endoscopic, Diagnostic (ICD-10-PCS; principal; 2016-07-13 18:00)
DX: I11.0 Hypertensive heart disease with heart failure (principal); J18.9 Pneumonia, unspecified organism; E11.65 Type 2 diabetes mellitus with hyperglycemia; D69.6 Thrombocytopenia, unspecified; I27.2 Other secondary pulmonary hypertension; D64.89 Other specified anemias; K22.10 Ulcer of esophagus without bleeding; Z88.0 Allergy status to penicillin; K22.5 Diverticulum of esophagus, acquired; I50.33 Acute on chronic diastolic (congestive) heart failure; Z85.3 Personal history of malignant neoplasm of breast; Z79.4 Long term (current) use of insulin; I35.0 Nonrheumatic aortic (valve) stenosis; E03.9 Hypothyroidism, unspecified; I07.1 Rheumatic tricuspid insufficiency; R13.10 Dysphagia, unspecified; K29.70 Gastritis, unspecified, without bleeding
CPT/HCPCS: 36415; 36430; 71010; 74230; 80048; 80053; 80061; 81001; 81003; 82550; 82553; 82962; 83036; 83540; 83735; 83880; 84100; 84443; 84484; 85025; 85610; 85730; 86644; 86850; 86870; 86880; 86900; 86901; 86920; 86971; 88305; 88312; 92526; 92610; 92611; 93005; 93306; 94640; 94664; 96374; 97163; C9113; J0360; J1815; J1940; J1956; J2370; J7040; P9016

== ENCOUNTER 2016-09-03 11:14 | Inpatient (IN) | payer MEDICAID ==
[~2016-09-03] VITALS: Ht 144.8 cm; Wt 47.6 kg
[~2016-09-03 11:14] MED LIST changes: -ADV25050 INH; -ALBU8.5H5 IH; -ASPI81TA3 PO; -FER325 PO; -FURO-110 PO; +LEVO500T10 PO; -METO10TA92 PO; +NOVMIX SC; -ONDA4TAB8 PO
[2016-09-03] MEDS ORDERED: ACETAMINOPHEN 325 MG TAB PO ONE (12:00)
[2016-09-03 12:21] LABS: ADD SCAN DIFF NO
[2016-09-03 12:29] LABS: BASOPHILS % 0.3 % (0.0-2.0); EOSINOPHILS # 0.2 10^3/ul (0.0-0.5); EOSINOPHILS % 2.4 % (0.0-7.0); HEMATOCRIT 25.3 % (37.0-47.0); HEMOGLOBIN 8.5 g/dl (12.0-16.0); LYMPHOCYTES # 1.5 10^3/ul (0.8-2.9); LYMPHOCYTES % 22.8 % (15.0-51.0); MEAN CORPUSCULAR HEMOGLOBIN 30.5 pg (29.0-33.0); MEAN CORPUSCULAR HGB CONC 33.6 g/dl (32.0-37.0); MEAN CORPUSCULAR VOLUME 90.7 fl (82.0-101.0); MEAN PLATELET VOLUME 9.8 fl (7.4-10.4); MONOCYTE # 0.5 10^3/ul (0.3-0.9); MONOCYTES % 7.5 % (0.0-11.0); NEUTROPHIL # 4.5 10^3/ul (1.6-7.5); NEUTROPHILS % 66.9 % (39.0-77.0); PLATELET COUNT 120 10^3/UL (140-415); RED BLOOD COUNT 2.79 10^6/ul (4.20-5.40); RED CELL DISTRIBUTION WIDTH 13.7 % (11.5-14.5); WHITE BLOOD COUNT 6.7 10^3/ul (4.8-10.8)
[2016-09-03 12:42] LABS: ALBUMIN 3.7 g/dl (3.3-4.9); ALBUMIN/GLOBULIN RATIO 1.32; BILIRUBIN,INDIRECT 0.4 mg/dl (0-1.1); BILIRUBIN,TOTAL 0.4 mg/dl (0.2-1.3); CALCIUM 8.6 mg/dl (8.4-10.2); CREATININE 0.97 mg/dl (0.44-1.00); POTASSIUM 4.9 mmol/L (3.5-5.1); TOTAL PROTEIN 6.5 g/dl (6.1-8.1)
[2016-09-03 12:49] LABS: INR 1.08; PARTIAL THROMBOPLASTIN TIME 32.9 Sec (25.0-35.0); PT RATIO 1.1
[2016-09-03 12:53] LABS: TROPONIN-I 0.013 ng/ml (0.00-0.12)
[2016-09-03 12:58] LABS: ADD UMIC YES; UR BILIRUBIN (Dip) NEGATIVE (NEGATIVE); UR BLOOD (Dip) 1+ (NEGATIVE); UR CLARITY CLEAR (CLEAR); UR COLOR LT. YELLOW (YELLOW); UR KETONES (Dip) NEGATIVE (NEGATIVE); UR LEUKOCYTE ESTERASE (Dip) NEGATIVE (NEGATIVE); UR NITRITE (Dip) NEGATIVE (NEGATIVE); UR TOTAL PROTEIN (Dip) 4+ (NEGATIVE); UR UROBILINOGEN (Dip) 1.0 E.U./dL (0.1-1.0)
--- NOTE | 2016-09-03 13:09 | RADRPT ---
PROCEDURE: XR Chest. CLINICAL INDICATION: Cough and fever. TECHNIQUE: Single frontal view of the chest was obtained. COMPARISON: None FINDINGS: The soft tissues are normal. There are degenerative osteophytes in the thoracic spine. The heart i s enlarged. The cardiomediastinal silhouette and hilar structures are normal. The pulmonary vascula ture is upper limits of normal. There are vascular calcifications in the aortic arch. There are inf iltrates in the right lower lobe and inferior lateral to the left hilum suspicious for pneumonia. S mall pleural effusions are not excluded. IMPRESSION: 1. There are infiltrates in the right lower lobe and inferior lateral to the left hilum which are no t evident on 09/02/2015 and may be the result of pneumonia. 2. Port-A-Cath over the right chest wall with the catheter tip in the superior vena cava. No pneum othorax is identified. 3. Cardiomegaly. 4. Atherosclerosis of the aortic arch. 5. Spondylosis of the thoracic spine. RPTAT:AAJJ Physician Rosanna Date Time Electronically viewed and signed by Physician Rosanna on 09/03/2016 13:08 /
[2016-09-03 13:13] LABS: UR SQUAMOUS EPITHELIAL CELL FEW
[2016-09-03] MEDS ORDERED: ONDANSETRON 4 MG INJ IV PRN ×2 (13:30→22:00)
[2016-09-03] MEDS ORDERED: LEVOFLOXACIN 750MG/D5W (PMX) 150 ML IVPB ONE (13:30)
[2016-09-03] MEDS ORDERED: SODIUM CHLORIDE 0.9% 1L BAG IV* STA (13:30)
[2016-09-03] MEDS ORDERED: ACETAMINOPHEN 325 MG TAB PO PRN ×2 (13:30)
[2016-09-03] MEDS ORDERED: SOD CHLORIDE 0.9% 1,000 ML IV SCH (13:30)
--- NOTE | 2016-09-03 13:35 | ERA ---
ER Documentation Chief Complaint Date/Time DATE: 09/03/16 TIME: 13:31 Chief Complaint Complains of cough and fever x 3 days HPI This is a 70-year-old female who presents to the emergency room for evaluation of fever, chills, and a cough for the past 3 days. The patient states that her cough is productive of green sputum. She states that she has no aggravating or relieving factors for her symptoms and states that she does have a history of pneumonia which feels the same as she was feeling today. The patient denies any recent travel or sick contacts. ROS All systems reviewed and are negative except as per history of present illness. Medications Home Meds Active Scripts Levofloxacin* (Levofloxacin*) 500 Mg Tablet, 500 MG PO DAILY for 5 Days, TAB Prov:PA GALAN MD 07/14/16 Reported Medications Insulin Glargine* (Lantus*) 100 Unit/Ml Soln, 20 UNIT SC QHS, #1 VIAL 07/06/16 Insulin Aspart (Novolog Mix (70/30)) 100 Units/Ml Soln, 0 SC WITH MEALS, VIAL 07/06/16 Docusate Sodium* (Docusate Sodium*) 100 Mg Capsule, 100 MG PO BID, #60 CAP 03/28/15 Amlodipine Besylate* (Amlodipine Besylate*) 10 Mg Tablet, 10 MG PO DAILY, #30 TAB 03/28/15 Carvedilol* (Carvedilol*) 3.125 Mg Tablet, 3.125 MG PO DAILY, TAB 01/31/14 Losartan Potassium* (Losartan Potassium*) 100 Mg Tablet, 100 MG PO DAILY, TAB 10/07/13 Omeprazole* (Omeprazole*) 20 Mg Capsule.dr, 20 MG PO DAILY 05/26/13 Allergies Allergies: Coded Allergies: Penicillins (Verified Allergy, Severe, ANGIOEDEMA, 09/03/16) ceftriaxone (Verified Allergy, Severe, angioedema, 09/03/16) PMhx/Soc History of Surgery: Yes (LT BREAST MASTECTOMY , RT KNEE ) Anesthesia Reaction: No Hx Neurological Disorder: No Hx Respiratory Disorders: Yes (asthma, PNA, Pleural effusion) Hx Cardiac Disorders: Yes (CHF, HTN) Hx Psychiatric Problems: No Hx Miscellaneous Medical Probl: Yes (DM) Hx Alcohol Use: No Hx Substance Use: No Hx Tobacco Use: No Smoking Status: Never smoker Physical Exam Vitals Vital Signs Date Time Temp Pulse Resp B/P Pulse Ox O2 Delivery O2 Flow Rate FiO2 09/03/16 12:00 Nasal Cannula 2 09/03/16 11:17 101.7 102 20 118/57 94 Physical Exam INITIAL VITAL SIGNS: Reviewed by me GENERAL: The patient is well developed and appropriate for usual state of health in no apparent distress HEENT: Pupils equal, round, and reactive to light. EOMI. There is no scleral icterus. NECK: C-spine is soft and supple, there is no meningismus. There is no cervical lymphadenopathy. LUNGS: Coarse breath sounds bilaterally with rhonchi auscultated in the bilateral lower HEART: Tachycardic no murmurs, clicks, rubs or gallops. ABDOMEN: Soft, non-tender, non-distended. There are bowel sounds in all four quadrants. No rebound or guarding. EXTREMITIES: There is no peripheral cyanosis or edema. No focal swelling or erythema. NEUROLOGICAL: The patient moves all four extremities with 5/5 strength. Cranial nerves II - XII are intact. Normal gait. Alert and oriented SKIN: Port-A-Cath in place, there is no apparent rash or petechiae. HEME/LYMPHATIC: There is no evidence of excessive bruising or lymphedema. PSYCHIATRIC: The patient does not appear anxious or depressed. Result Diagram: 09/03/16 1200 09/03/16 1200 Results 24 hrs Laboratory Tests Test 09/03/16 12:00 White Blood Count 6.710^3/ul Red Blood Count 2.7910^6/ul Hemoglobin 8.5g/dl Hematocrit 25.3% Mean Corpuscular Volume 90.7fl Mean Corpuscular Hemoglobin 30.5pg Mean Corpuscular Hemoglobin Concent 33.6g/dl Red Cell Distribution Width 13.7% Platelet Count 02797^3/UL Mean Platelet Volume 9.8fl Neutrophils % 66.9% Lymphocytes % 22.8% Monocytes % 7.5% Eosinophils % 2.4% Basophils % 0.3% Nucleated Red Blood Cells % 0.0/100WBC Neutrophils # 4.510^3/ul Lymphocytes # 1.510^3/ul Monocytes # 0.510^3/ul Eosinophils # 0.210^3/ul Basophils # 0.010^3/ul Nucleated Red Blood Cells # 0.010^3/ul Prothrombin Time 14.0Sec Prothrombin Time Ratio 1.1 INR International Normalized Ratio 1.08 Activated Partial Thromboplast Time 32.9Sec Urine Color LT. YELLOW Urine Clarity CLEAR Urine pH 6.0 Urine Specific [place] 1.020 Urine Ketones NEGATIVE Urine Nitrite NEGATIVE Urine Bilirubin NEGATIVE Urine Urobilinogen 1.0 E.U./dL Urine Leukocyte Esterase NEGATIVE Urine Microscopic RBC 2-5/HPF Urine Microscopic WBC 0-2/HPF Urine Squamous Epithelial Cells FEW Urine Amorphous Phosphates FEW Urine Hemoglobin 1+ Urine Glucose 0.1%% Urine Total Protein 4+ Sodium Level 134mmol/L Potassium Level 4.9mmol/L Chloride Level 102mmol/L Carbon Dioxide Level 24mmol/L Anion Gap 13 Blood Urea Nitrogen 25mg/dl Creatinine 0.97mg/dl Glucose Level 283mg/dl Lactic Acid Level 1.8mmol/L Calcium Level 8.6mg/dl Total Bilirubin 0.4mg/dl Direct Bilirubin 0.00mg/dl Indirect Bilirubin 0.4mg/dl Aspartate Amino Transf (AST/SGOT) 21IU/L Alanine Aminotransferase (ALT/SGPT) 19IU/L Alkaline Phosphatase 59IU/L Troponin I 0.013ng/ml Total Protein 6.5g/dl Albumin 3.7g/dl Globulin 2.80g/dl Albumin/Globulin Ratio 1.32 Current Medications Medications (Trade) Dose Ordered Sig/Nicol Route PRN Reason Start Time Stop Time Status Last Admin Dose Admin Acetaminophen 650 mg 650 mg ONCE ONCE PO 09/03/16 12:00 09/03/16 12:01 DC 09/03/16 12:20 Levofloxacin/ Dextrose (Levaquin 750 Mg/ D5W 150 ml (Pmx)) 150 ml @ 100 mls/hr ONCE ONCE IVPB 09/03/16 13:30 09/03/16 14:59 09/03/16 13:22 Procedures/MDM EKG: Rate/Rhythm: [Normal Sinus Rhythm] QRS, ST, T-waves: [No changes consistent w/ acute ischemia] Impression: [No evidence of ischemia or arrhythmia] Chest X-ray 1V Interpreted by me: Soft Tissue: Right lower lobe pneumonia Bones: No acute abnormalities Mediastinum/Cardiac Silhouette/Lungs: [No acute abnormalities] This 70-year-old female presents to the emergency room for evaluation of a fever and a cough. When I evaluated this patient she was febrile tachycardic. She did have coarse breath sounds bilaterally. A septic workup was started on this patient as patient was found to have a right lower lobe pneumonia. She does not have a leukocytosis however given her vital signs, and age the patient will be placed in for admission. This patient has had a severe anaphylactic reaction to penicillin, and Rocephin requiring intubation. The patient was given Levaquin and will be placed in for admission to the [facility] floor under the care of Dr. umana. Critical Care: Excluding all billable procedures Time: 34 minutes Treatments/Evaluations: Close monitoring and treatment of unstable vital signs, cardiorespiratory, and neurologic status, while maintaining tight balance of fluid, respiratory, and cardiac interventions. Departure Diagnosis: Primary Impression: Sepsis Additional Impressions: Right lower lobe pneumonia Normocytic anemia Thrombocytopenia Hyperglycemia Condition: Stable DORA MALDONADO DO Sep 03, 2016 13:35
[2016-09-03] MEDS ORDERED: GLUCOSE GEL 15 GRAM TUBE PO PRN ×2 (14:00)
[2016-09-03] MEDS ORDERED: DEXTROSE 50% 50 ML SYRINGE IV PRN ×2 (14:00)
[2016-09-03] MEDS ORDERED: GLUCAGON 1 MG INJ IM PRN (14:00)
[2016-09-03] MEDS ORDERED: GLUCOSE GEL 15 GRAM TUBE BUCCAL PRN (14:00)
[2016-09-03 14:58] VITALS: TEMP 99.2
[2016-09-03 16:03] VITALS: Ht 144.8 cm; Wt 47.6 kg
[2016-09-03] MEDS: ALBUTEROL 0.083% (NEB) 2.5 MG/3 ML AMP HHN SCH ×2 (16:46→21:36)
[2016-09-03] MEDS: INSULIN ASPART [NOVOLOG] 3 ML PEN SC SCH ×2 (18:48→20:58)
[2016-09-03 19:10] VITALS: BP 146/66; RESP 16
[2016-09-03] MEDS: DOCUSATE SODIUM 100 MG CAP PO SCH (20:52)
[2016-09-03] MEDS ORDERED: INSULIN GLARGINE [LANtus] 3 ML PEN SC SCH (21:00)
[2016-09-03 23:21] LABS: CREATINE KINASE 123 IU/L (23-200)
[2016-09-03 23:31] LABS: CK-MB 5.04 ng/ml (0.0-2.4)
[2016-09-03 23:34] LABS: TROPONIN-I < 0.012 ng/ml (0.00-0.12)
[2016-09-04] MEDS: ALBUTEROL 0.083% (NEB) 2.5 MG/3 ML AMP HHN SCH ×6 (00:18→20:51)
[2016-09-04] MEDS: PANTOPRAZOLE (EC) 40 MG TAB PO SCH (05:58)
[2016-09-04] MEDS ORDERED: GUAIFENESIN/DM 5ML CUP PO ONE (06:00)
[2016-09-04 07:53] VITALS: BP 158/68; RESP 16
[2016-09-04 08:13] LABS: ADD SCAN DIFF NO
[2016-09-04] MEDS: INSULIN ASPART [NOVOLOG] 3 ML PEN SC SCH (08:15)
[2016-09-04 08:26] LABS: ABNORMAL IP MESSAGE 1; BASOPHILS % 0.2 % (0.0-2.0); EOSINOPHILS # 0.1 10^3/ul (0.0-0.5); EOSINOPHILS % 2.9 % (0.0-7.0); HEMATOCRIT 25.2 % (37.0-47.0); HEMOGLOBIN 8.2 g/dl (12.0-16.0); LYMPHOCYTES # 1.3 10^3/ul (0.8-2.9); MEAN CORPUSCULAR HEMOGLOBIN 29.7 pg (29.0-33.0); MEAN CORPUSCULAR HGB CONC 32.5 g/dl (32.0-37.0); MEAN CORPUSCULAR VOLUME 91.3 fl (82.0-101.0); MONOCYTE # 0.3 10^3/ul (0.3-0.9); MONOCYTES % 6.9 % (0.0-11.0); NEUTROPHIL # 2.7 10^3/ul (1.6-7.5); NEUTROPHILS % 60.6 % (39.0-77.0); PLATELET COUNT 99 10^3/UL (140-415); RED BLOOD COUNT 2.76 10^6/ul (4.20-5.40); WHITE BLOOD COUNT 4.5 10^3/ul (4.8-10.8)
[2016-09-04 08:40] LABS: ALBUMIN 3.5 g/dl (3.3-4.9); BILIRUBIN,INDIRECT 0.2 mg/dl (0-1.1); BILIRUBIN,TOTAL 0.2 mg/dl (0.2-1.3); CALCIUM 9.1 mg/dl (8.4-10.2); CREATININE 0.87 mg/dl (0.44-1.00); POTASSIUM 4.4 mmol/L (3.5-5.1); TOTAL PROTEIN 6.4 g/dl (6.1-8.1)
[2016-09-04 08:53] LABS: CK-MB 5.26 ng/ml (0.0-2.4); TROPONIN-I 0.014 ng/ml (0.00-0.12)
[2016-09-04] MEDS ORDERED: ENOXAPARIN 40 MG/0.4 ML SYG SC SCH (09:00)
[2016-09-04 09:10] LABS: THYROID STIMULATING HORMONE 7.85 MIU/L (0.465-4.680)
[2016-09-04] MEDS: DOCUSATE SODIUM 100 MG CAP PO SCH ×2 (09:20→20:57)
[2016-09-04] MEDS: AMLODIPINE 10 MG TAB PO SCH (09:21)
[2016-09-04] MEDS: LOSARTAN 50 MG TAB PO SCH (09:22)
--- NOTE | 2016-09-04 12:24 | EN ---
Date/Time of Note Date/Time of Note DATE: 09/04/16 TIME: 12:24 Event Note Medicine Medicine Event Note History and physical Date of admission and evaluation:September 03, 2016 Presenting complaint: Cough and fever History of presenting complaint: Patient is a 68-year-old female who was brought to the emergency room by her family 68-year-old female because of fever and a cough that is going on for the last 3 days. Cough is said to productive of greenish sputum, associated with fever, nausea without vomiting. The patient has not tried any outpatient antibiotics. She has a history of congestive heart failure and hypertension. She also has a history of breast cancer for which she underwent chemotherapy for 3 sessions until she was unable to tolerated, she also underwent a mastectomy and underwent what sounds like immunotherapy before stopping treatment. She however states she has been told she is in remission. The patient cannot remember the last time she had a CAT scan of the chest however states that I should ask her daughter. She denies abdominal pain but she does have a chronic right foot deformity that looks collected Charcot's foot, and she has some pain at that site. She is asking for a boot or walker for this. ROS: CONSTITUTIONAL: See HPI HEENT: complains of headaches and oaccasional vertigo since radiation therapy for cancer, any sore throat or rhinorrhea. Eyes: No double or blurred vision or eye pain. CARDIOVASCULAR: no chest discomfort, chest pain, irregular rhythm, tachycardia or diaphoresis. RESPIRATORY: See HPI GASTROINTESTINAL: The patient denies any nausea, vomiting, diarrhea or abdominal pain. GENITOURINARY: denies dysuria, frequency, urgency or hematuria. MUSCULOSKELETAL: also denies myalgias, arthralgias or edema. SKIN: denies rash or jaundice NEUROLOGIC: denies focal neurological change PSYCHIATRIC: denies history of depression in the past, any suicidal ideation. substance abuse. ENDOCRINE: diabetic HEMATOLOGIC: denies history of easy bruising, anemia or eczema. PMH / PSH: 1. Diabetes mellitus type 2 2. Hypertension 3. History of breast cancer status post mastectomy chemo and radiation in 2013 said to be cancer free 4. Chronic knee surgery left knee 5. History of gastritis 6. History of congestive heart failure Social history: Patient denies tobacco alcohol or illicit drug use Family history: Reviewed and noncontributory Home Meds: Active Scripts Levofloxacin* (Levofloxacin*) 500 Mg Tablet, 500 MG PO DAILY for 5 Days, TAB Prov:PA GALAN MD 07/14/16 Reported Medications Insulin Glargine* (Lantus*) 100 Unit/Ml Soln, 20 UNIT SC QHS, #1 VIAL 07/06/16 Insulin Aspart (Novolog Mix (70/30)) 100 Units/Ml Soln, 0 SC WITH MEALS, VIAL 07/06/16 Docusate Sodium* (Docusate Sodium*) 100 Mg Capsule, 100 MG PO BID, #60 CAP 03/28/15 Amlodipine Besylate* (Amlodipine Besylate*) 10 Mg Tablet, 10 MG PO DAILY, #30 TAB 03/28/15 Carvedilol* (Carvedilol*) 3.125 Mg Tablet, 3.125 MG PO DAILY, TAB 01/31/14 Losartan Potassium* (Losartan Potassium*) 100 Mg Tablet, 100 MG PO DAILY, TAB 10/07/13 Omeprazole* (Omeprazole*) 20 Mg Capsule.dr, 20 MG PO DAILY 05/26/13 Allergies: Coded Allergies: Penicillins (Verified Allergy, Severe, ANGIOEDEMA, 09/03/16) ceftriaxone (Verified Allergy, Severe, angioedema, 09/03/16) Physical Exam Vitals Vital Signs Date Time Temp Pulse Resp B/P Pulse Ox O2 Delivery O2 Flow Rate FiO2 09/03/16 12:00 Nasal Cannula 2 09/03/16 11:17 101.7 102 20 118/57 94 Physical Exam: GENERAL: Patient is alert, oriented x 3, in no apparent distress; does not appear acutely or chronically ill. Patient is able to sit up unassisted.Patient makes good eye contact, is conversant, interactive, coherent. Patient appears calm and comfortable and is able to follow commands. HEENT: Oropharynx is clear. There is no carotid bruit, no masses. Patient's pupils are equal, round and reactive to light bilaterally. Extraocular motions are intact. There is no scleral icterus. There is no facial asymmetry. NECK: Supple. LUNGS: Clear to auscultation bilaterally with good air entry. No Wheezes or crackles. HEART: S1, S2. No murmur, gallops or rubs. Regular rate and rhythm. ABDOMEN: Soft, nontender. Normoactive bowel sounds. There are no stigmata of chronic liver disease. BACK: no costovertebral angle tenderness. GENITOURINARY: Deferred. EXTREMITIES: No edema. There is no cyanosis, clubbing. There are 2+ pulses bilaterally distally. NEUROLOGIC: The patient has no lateralizing signs. Cranial nerves II-XII are intact. SKIN: Otherwise, unremarkable. Result Diagram: 09/03/16 1200 09/03/16 1200 Results 24 hrs Laboratory Tests Test 09/03/16 12:00 White Blood Count 6.710^3/ul Red Blood Count 2.7910^6/ul Hemoglobin 8.5g/dl Hematocrit 25.3% Mean Corpuscular Volume 90.7fl Mean Corpuscular Hemoglobin 30.5pg Mean Corpuscular Hemoglobin Concent 33.6g/dl Red Cell Distribution Width 13.7% Platelet Count 36154^3/UL Mean Platelet Volume 9.8fl Neutrophils % 66.9% Lymphocytes % 22.8% Monocytes % 7.5% Eosinophils % 2.4% Basophils % 0.3% Nucleated Red Blood Cells % 0.0/100WBC Neutrophils # 4.510^3/ul Lymphocytes # 1.510^3/ul Monocytes # 0.510^3/ul Eosinophils # 0.210^3/ul Basophils # 0.010^3/ul Nucleated Red Blood Cells # 0.010^3/ul Prothrombin Time 14.0Sec Prothrombin Time Ratio 1.1 INR International Normalized Ratio 1.08 Activated Partial Thromboplast Time 32.9Sec Urine Color LT. YELLOW Urine Clarity CLEAR Urine pH 6.0 Urine Specific [place] 1.020 Urine Ketones NEGATIVE Urine Nitrite NEGATIVE Urine Bilirubin NEGATIVE Urine Urobilinogen 1.0 E.U./dL Urine Leukocyte Esterase NEGATIVE Urine Microscopic RBC 2-5/HPF Urine Microscopic WBC 0-2/HPF Urine Squamous Epithelial Cells FEW Urine Amorphous Phosphates FEW Urine Hemoglobin 1+ Urine Glucose 0.1%% Urine Total Protein 4+ Sodium Level 134mmol/L Potassium Level 4.9mmol/L Chloride Level 102mmol/L Carbon Dioxide Level 24mmol/L Anion Gap 13 Blood Urea Nitrogen 25mg/dl Creatinine 0.97mg/dl Glucose Level 283mg/dl Lactic Acid Level 1.8mmol/L Calcium Level 8.6mg/dl Total Bilirubin 0.4mg/dl Direct Bilirubin 0.00mg/dl Indirect Bilirubin 0.4mg/dl Aspartate Amino Transf (AST/SGOT) 21IU/L Alanine Aminotransferase (ALT/SGPT) 19IU/L Alkaline Phosphatase 59IU/L Troponin I 0.013ng/ml Total Protein 6.5g/dl Albumin 3.7g/dl Globulin 2.80g/dl Albumin/Globulin Ratio 1.32 Current Medications Medications (Trade) Dose Ordered Sig/Nicol Route PRN Reason Start Time Stop Time Status Last Admin Dose Admin Acetaminophen 650 mg 650 mg ONCE ONCE PO 09/03/16 12:00 09/03/16 12:01 DC 09/03/16 12:20 Levofloxacin/ Dextrose (Levaquin 750 Mg/ D5W 150 ml (Pmx)) 150 ml @ 100 mls/hr ONCE ONCE IVPB 09/03/16 13:30 09/03/16 14:59 09/03/16 13:22 EKG: I reviewed EKG EKG NSR 72bpm Rate: Within normal limits Rhythm: sinus Note: No ST elevation or depressions noted concerning for acute ischemic event. PROCEDURE: XR Chest. CLINICAL INDICATION: Cough and fever. TECHNIQUE: Single frontal view of the chest was obtained. COMPARISON: None FINDINGS: The soft tissues are normal. There are degenerative osteophytes in the thoracic spine. The heart is enlarged. The cardiomediastinal silhouette and hilar structures are normal. The pulmonary vasculature is upper limits of normal. There are vascular calcifications in the aortic arch. There are infiltrates in the right lower lobe and inferior lateral to the left hilum suspicious for pneumonia. Small pleural effusions are not excluded. IMPRESSION: 1. There are infiltrates in the right lower lobe and inferior lateral to the left hilum which are not evident on 09/02/2015 and may be the result of pneumonia. 2. Port-A-Cath over the right chest wall with the catheter tip in the superior vena cava. No pneumothorax is identified. 3. Cardiomegaly. 4. Atherosclerosis of the aortic arch. 5. Spondylosis of the thoracic spine. RPTAT:AAJJ Physician Rosanna Date Time Electronically viewed and signed by Blayne Mike Physician on 09/03/2016 13:08 JM/ CC: DORA MALDONADO DO A / P 70-year-old female who was brought in by family for cough fevers and chills now admitted and managed for the followin. Sepsis secondary to right-sided pneumonia 2. Diabetes mellitus type 2 with suboptimal control 3. Chronic Normocytic anemia 4. Penicillin allergy 5. Cardiac murmur 6. Proteinuria rule out impending diabetes nephropathy 7. Chronic right-sided Charcot's foot Plan: Admit to MedSurg, comments broad-spectrum antibiotics, blood urine and respiratory cultures. Resume all home hypoglycemic regimen and adjust as indicated, diabetic diet, sliding scale insulin Add TAYE inhibitor versus R to regimen, continue aspirin, 2D echo if none recently Podiatry consultation to help with Charcot's foot Further interventions per clinical course Prophylaxis with Lovenox and Pepcid JIMBO ZAVALETA Sep 04, 2016 12:24
[2016-09-04] MEDS: Insulin NOVOLOG SS MILD Algorithm (SS with meals and bedtime) SC SCH ×3 (13:04→21:08)
--- NOTE | 2016-09-04 16:35 | PN ---
Date/Time of Note Date/Time of Note DATE: 09/04/16 TIME: 15:56 Assessment/Plan VTE Prophylaxis VTE Prophylaxis Intervention: SCD's VTE Contraindication Reason: thrombocytopenia Lines/Catheters IV Catheter Type (from Nrsg): Saline Lock Assessment/Plan Assessment/Plan A / P 70-year-old female who was brought in by family for cough fevers and chills now admitted and managed for the followin. Sepsis secondary to right-sided pneumonia: improved 2. Diabetes mellitus type 2 : control improved 3. Chronic Normocytic anemia 4. Pancytopenia 5. Severe with cardiac murmur 6. Proteinuria rule out impending diabetes nephropathy 7. Chronic right-sided Charcot's foot 8. Hypothyroidism ?new diagnosis 9. Stage 2 Diastolic dysfxn with preserved EF 10. Hx of breast CA status post left-sided mastectomy in 2013/chemo/radiation/ ? Immunotherapy 11. Left-sided port in place since 2013 12. Persistent dizziness Plan: * CT chest * iron profile * MRI brain for dizziness in setting of prev breast CA * Podiatry consult for Charcot's foot * Cardiology consult for management of HTN and * Obtain records from Dr Davidson's office * supportive care Subjective 24 Hr Interval Summary Free Text/Dictation Patient reports continued coughing, and disturbing dizziness. She is also anxiously awaiting kit planner to look at her right foot which she states continues to cause her a lot of pain. Exam/Review of Systems Vital Signs Vitals Vital Signs Date Time Temp Pulse Resp B/P Pulse Ox O2 Delivery O2 Flow Rate FiO2 09/04/16 13:59 2.0 09/04/16 07:53 97.4 62 16 158/68 98 09/03/16 21:37 Nasal Cannula Intake and Output 09/03/16 09/03/16 09/04/16 15:00 23:00 07:00 Intake Total 150 ml 120 ml 300 ml Balance 150 ml 120 ml 300 ml Exam Constitutional: alert, frail, oriented, No distress Head: atraumatic, normocephalic Eyes: PERRL ENMT: mucosa pink and moist Neck: supple Respiratory: diminished breath sounds, other (coarse breath sounds) Cardiovascular: murmurs/extra sounds, regular rate and rhythm Gastrointestinal: bowel sounds, non-tender, soft Extremities: other (r charcot foot / externally rotated from ankle with callus+ + / ) Neurological: nl mental status, nl speech Results Result Diagram: 09/04/16 0708 09/04/16 0708 Results 24 hrs Laboratory Tests Test 09/03/16 17:33 09/03/16 18:10 09/03/16 18:23 09/03/16 20:51 Bedside Glucose 191 177 214 Lactic Acid Level 0.7 Test 09/03/16 22:35 09/04/16 03:36 09/04/16 03:51 09/04/16 04:06 Creatine Kinase 123 Creatine Kinase Index 4.1 Creatinine Kinase MB (Mass) 5.04 H Troponin I < 0.012 Bedside Glucose 47 *L 209 170 Test 09/04/16 07:05 09/04/16 07:08 09/04/16 08:57 09/04/16 09:15 Hemoglobin A1c 7.3 H Creatine Kinase 108 Creatine Kinase Index 4.9 Creatinine Kinase MB (Mass) 5.26 H Troponin I 0.014 White Blood Count 4.5 #L Red Blood Count 2.76 L Hemoglobin 8.2 L Hematocrit 25.2 L Mean Corpuscular Volume 91.3 Mean Corpuscular Hemoglobin 29.7 Mean Corpuscular Hemoglobin Concent 32.5 Red Cell Distribution Width 14.0 Platelet Count 99 L Mean Platelet Volume 10.0 Neutrophils % 60.6 Lymphocytes % 29.0 Monocytes % 6.9 Eosinophils % 2.9 Basophils % 0.2 Nucleated Red Blood Cells % 0.0 Neutrophils # 2.7 Lymphocytes # 1.3 Monocytes # 0.3 Eosinophils # 0.1 Basophils # 0.0 Nucleated Red Blood Cells # 0.0 Sodium Level 141 Potassium Level 4.4 Chloride Level 106 Carbon Dioxide Level 27 Anion Gap 12 Blood Urea Nitrogen 23 H Creatinine 0.87 Glucose Level 62 #L Calcium Level 9.1 Magnesium Level 2.0 Total Bilirubin 0.2 Direct Bilirubin 0.00 Indirect Bilirubin 0.2 Aspartate Amino Transf (AST/SGOT) 18 Alanine Aminotransferase (ALT/SGPT) 22 Alkaline Phosphatase 60 Total Protein 6.4 Albumin 3.5 Triglycerides Level 62 Cholesterol Level 166 LDL Cholesterol, Calculated 100 HDL Cholesterol 54 Cholesterol/HDL Ratio 3.0 Thyroid Stimulating Hormone (TSH) 7.850 H Bedside Glucose 59 L 86 Test 09/04/16 09:35 09/04/16 12:26 Bedside Glucose 118 144 Medications Medications Current Medications Amlodipine Besylate (Norvasc) 10 mg DAILY PO Last administered on 09/04/16 09: 21; Admin Dose 10 MG; Start 09/04/16 at 09:00 Carvedilol (Coreg) 3.125 mg DAILY PO Last administered on 09/04/16 09:22; Admin Dose 3.125 MG; Start 09/04/16 at 09:00 Docusate Sodium (Colace) 100 mg BID PO Last administered on 09/04/16 09:20; Admin Dose 100 MG; Start 09/03/16 at 21:00 Losartan Potassium (Cozaar) 100 mg DAILY PO Last administered on 09/04/16 09: 22; Admin Dose 100 MG; Start 09/04/16 at 09:00 Pantoprazole 40 mg 40 mg DAILY@06 PO Last administered on 09/04/16 05:58; Admin Dose 40 MG; Start 09/04/16 at 06:00 Levofloxacin/ Dextrose (Levaquin 750 Mg/ D5W 150 ml (Pmx)) 150 ml @ 100 mls/hr Q48H IVPB ; Start 09/05/16 at 13:30 Acetaminophen (Tylenol Tab) 650 mg Q6H PRN PO PAIN AND OR ELEVATED TEMP; Start 09/03/16 at 13:30 Enoxaparin Sodium (Lovenox) 40 mg DAILY SC Last administered on 09/04/16 09:40 ; Admin Dose 40 MG; Start 09/04/16 at 09:00 Miscellaneous Information 1 ea NOTE XX ; Start 09/03/16 at 14:00 Glucose (Glutose) 15 gm Q15M PRN PO DECREASED GLUCOSE; Start 09/03/16 at 14:00 Glucose (Glutose) 22.5 gm Q15M PRN PO DECREASED GLUCOSE; Start 09/03/16 at 14: 00 Dextrose (D50w Syringe) 25 ml Q15M PRN IV DECREASED GLUCOSE; Start 09/03/16 at 14:00 Dextrose (D50w Syringe) 50 ml Q15M PRN IV DECREASED GLUCOSE Last administered on 09/04/16 03:39; Admin Dose 50 ML; Start 09/03/16 at 14:00 Glucagon (Glucagen) 1 mg Q15M PRN IM DECREASED GLUCOSE; Start 09/03/16 at 14:00 Glucose (Glutose) 15 gm Q15M PRN BUCCAL DECREASED GLUCOSE; Start 09/03/16 at 14 :00 Ondansetron HCl (Zofran Inj) 4 mg Q6H PRN IV NAUSEA AND/OR VOMITING; Start at 22:00 Insulin Glargine (Lantus) 15 unit DAILY@20 SC ; Start 09/04/16 at 20:00 Procedures Procedures Echocardiogram Report Conclusions 1. Normal left ventricular systolic function. Normal left ventricular cavity size. Mild concentric left ventricular hypertrophy. Ejection fraction is visually estimated at 65 %. Tissue Doppler/Mitral Doppler indices are consistent with pseudonormalization with mildly elevated left atrial pressure (Stage II diastolic dysfunction). 2. Mild mitral leaflet calcification. Mild mitral annular calcification. Mild to moderate mitral valve regurgitation. 3. Estimated peak PA systolic pressure 64 mmHg. There is moderate tricuspid regurgitation. 4. Aortic valve not well visualized. Moderate to severe aortic stenosis. Aortic valve Max velocity 3.62 m/sec. Max PG 52.00 mmHg. Mean PG 29.00 mmHg. Aortic valve area 0.91 cm2. Aortic cusps appear moderately calcified. No aortic regurgitation. 5. Dilated IVC with respiratory collapse consistent with elevated right atrial pressure. Electronically Signed By: Rory Beltrán 07-Jul-2016 12:06:11 -0700 JIMBO ZAVALETA Sep 04, 2016 16:06
--- NOTE | 2016-09-04 16:55 | CONS ---
Date/Time of Note Date/Time of Note DATE: 09/04/16 TIME: 16:49 Assessment/Plan Assessment/Plan Additional Assessment/Plan Pneumonia Preserved ejection fraction At least moderate aortic stenosis Hypertension Diabetes -Patient with x-ray findings and history consistent with pneumonia. Feeling better on antibiotics. Denies paroxysmal nocturnal dyspnea or shortness of breath with exertion. No evidence of decompensated congestive heart failure at the current time. Patient with recurrent anemia and has been off aspirin for this reason. Blood pressure trend has been overall stable with mild hypertension noted this afternoon. Would continue to monitor and if needed medications could be adjusted. Given her aortic stenosis, would ideally not want to increase beta-vivian at the current time. Antibiotics and pulmonary care as per primary team. Consultation Date/Type/Reason Admit Date/Time Sep 03, 2016 at 13:30 Type of Consultation: cv Reason for Consultation Aortic stenosis Hx of Present Illness This is a 70-year-old female with past medical history of hypertension, aortic stenosis who presents with cough, fevers and chills worsening over the past 3-4 days. Cough is productive with sticky phlegm. Shortness of breath happens with coughing. She denies exertional shortness of breath or chest pain. She denies dizziness, lightheadedness, palpitations, syncope or near syncope. She feels better since admission. She was recently on antibiotics secondary to her cough. She denies any nausea or vomiting, abdominal pain, lower extremity swelling. 12 point review of systems was performed with all pertinent positives and negatives mentioned above and all else is negative Past Medical History Aortic stenosis Breast cancer Medical History: diabetes, hypertension Past Surgical History Port-A-Cath placement Family History Significant Family History: no pertinent family hx Social History Alcohol Use: none Smoking Status: Never smoker Exam/Review of Systems Vital Signs Vitals Vital Signs Date Time Temp Pulse Resp B/P Pulse Ox O2 Delivery O2 Flow Rate FiO2 09/04/16 13:59 2.0 09/04/16 10:00 Nasal Cannula 09/04/16 07:53 97.4 62 16 158/68 98 Intake and Output 09/03/16 09/03/16 09/04/16 15:00 23:00 07:00 Intake Total 150 ml 120 ml 300 ml Balance 150 ml 120 ml 300 ml Exam No apparent distress, seen ambulating in the room with walker, following commands, no dyspnea Constitutional: alert, oriented Head: normocephalic Neck: supple Respiratory: other (Coarse breath sounds bilaterally, no wheezing) Cardiovascular: other (S1-S2 heard), regular rate and rhythm, systolic murmur ( 3-4 out of 6 loudest right upper sternal border) Gastrointestinal: bowel sounds, non-tender, soft Extremities: edema (Trace) Results Result Diagram: 09/04/16 0708 09/04/16 0708 Results 24 hrs Laboratory Tests Test 09/03/16 17:33 09/03/16 18:10 09/03/16 18:23 09/03/16 20:51 Bedside Glucose 191 177 214 Lactic Acid Level 0.7 Test 09/03/16 22:35 09/04/16 03:36 09/04/16 03:51 09/04/16 04:06 Creatine Kinase 123 Creatine Kinase Index 4.1 Creatinine Kinase MB (Mass) 5.04 H Troponin I < 0.012 Bedside Glucose 47 *L 209 170 Test 09/04/16 07:05 09/04/16 07:08 09/04/16 08:57 09/04/16 09:15 Hemoglobin A1c 7.3 H Creatine Kinase 108 Creatine Kinase Index 4.9 Creatinine Kinase MB (Mass) 5.26 H Troponin I 0.014 White Blood Count 4.5 #L Red Blood Count 2.76 L Hemoglobin 8.2 L Hematocrit 25.2 L Mean Corpuscular Volume 91.3 Mean Corpuscular Hemoglobin 29.7 Mean Corpuscular Hemoglobin Concent 32.5 Red Cell Distribution Width 14.0 Platelet Count 99 L Mean Platelet Volume 10.0 Neutrophils % 60.6 Lymphocytes % 29.0 Monocytes % 6.9 Eosinophils % 2.9 Basophils % 0.2 Nucleated Red Blood Cells % 0.0 Neutrophils # 2.7 Lymphocytes # 1.3 Monocytes # 0.3 Eosinophils # 0.1 Basophils # 0.0 Nucleated Red Blood Cells # 0.0 Sodium Level 141 Potassium Level 4.4 Chloride Level 106 Carbon Dioxide Level 27 Anion Gap 12 Blood Urea Nitrogen 23 H Creatinine 0.87 Glucose Level 62 #L Calcium Level 9.1 Magnesium Level 2.0 Total Bilirubin 0.2 Direct Bilirubin 0.00 Indirect Bilirubin 0.2 Aspartate Amino Transf (AST/SGOT) 18 Alanine Aminotransferase (ALT/SGPT) 22 Alkaline Phosphatase 60 Total Protein 6.4 Albumin 3.5 Triglycerides Level 62 Cholesterol Level 166 LDL Cholesterol, Calculated 100 HDL Cholesterol 54 Cholesterol/HDL Ratio 3.0 Thyroid Stimulating Hormone (TSH) 7.850 H Bedside Glucose 59 L 86 Test 09/04/16 09:35 09/04/16 12:26 Bedside Glucose 118 144 Medications Medications Current Medications Amlodipine Besylate (Norvasc) 10 mg DAILY PO Last administered on 09/04/16 09: 21; Admin Dose 10 MG; Start 09/04/16 at 09:00 Carvedilol (Coreg) 3.125 mg DAILY PO Last administered on 09/04/16 09:22; Admin Dose 3.125 MG; Start 09/04/16 at 09:00 Docusate Sodium (Colace) 100 mg BID PO Last administered on 09/04/16 09:20; Admin Dose 100 MG; Start 09/03/16 at 21:00 Losartan Potassium (Cozaar) 100 mg DAILY PO Last administered on 09/04/16 09: 22; Admin Dose 100 MG; Start 09/04/16 at 09:00 Pantoprazole 40 mg 40 mg DAILY@06 PO Last administered on 09/04/16 05:58; Admin Dose 40 MG; Start 09/04/16 at 06:00 Levofloxacin/ Dextrose (Levaquin 750 Mg/ D5W 150 ml (Pmx)) 150 ml @ 100 mls/hr Q48H IVPB ; Start 09/05/16 at 13:30 Acetaminophen (Tylenol Tab) 650 mg Q6H PRN PO PAIN AND OR ELEVATED TEMP; Start 09/03/16 at 13:30 Enoxaparin Sodium (Lovenox) 40 mg DAILY SC Last administered on 09/04/16 09:40 ; Admin Dose 40 MG; Start 09/04/16 at 09:00; Status Future Hold Miscellaneous Information 1 ea NOTE XX ; Start 09/03/16 at 14:00 Glucose (Glutose) 15 gm Q15M PRN PO DECREASED GLUCOSE; Start 09/03/16 at 14:00 Glucose (Glutose) 22.5 gm Q15M PRN PO DECREASED GLUCOSE; Start 09/03/16 at 14: 00 Dextrose (D50w Syringe) 25 ml Q15M PRN IV DECREASED GLUCOSE; Start 09/03/16 at 14:00 Dextrose (D50w Syringe) 50 ml Q15M PRN IV DECREASED GLUCOSE Last administered on 09/04/16 03:39; Admin Dose 50 ML; Start 09/03/16 at 14:00 Glucagon (Glucagen) 1 mg Q15M PRN IM DECREASED GLUCOSE; Start 09/03/16 at 14:00 Glucose (Glutose) 15 gm Q15M PRN BUCCAL DECREASED GLUCOSE; Start 09/03/16 at 14 :00 Ondansetron HCl (Zofran Inj) 4 mg Q6H PRN IV NAUSEA AND/OR VOMITING; Start at 22:00 Insulin Glargine (Lantus) 15 unit DAILY@20 SC ; Start 09/04/16 at 20:00 Procedures Procedures ECG demonstrates sinus rhythm at 72 bpm, nonspecific STT wave abnormalities Joel Coulter DO Sep 04, 2016 16:55
[2016-09-04 20:30] VITALS: BP 169/77; RESP 20
--- NOTE | 2016-09-04 20:55 | RADRPT ---
PROCEDURE: MRI Brain without contrast. CLINICAL INDICATION: Dizziness. History of breast cancer and radiation. TECHNIQUE: An MRI of the brain was performed utilizing the following sequences: Sagittal and axial T1 weighted, axial T2 weighted, axial diffusion weighted with ADC mapping, coronal GRE, and axial F LAIR. COMPARISON: Brain CT 04/07/2015. FINDINGS: No diffusion weighted abnormalities are seen to suggest the presence of acute ischemia or recent inf arct. No hypointense signal abnormalities are seen on the GRE images to suggest the presence of blo od degradation products. There is no evidence of intracranial hemorrhage, mass effect, or midline s hift. No extra-axial fluid collections are seen. The ventricles and sulci are mildly enlarged indica tive of volume loss. There are mild scattered foci of T2 FLAIR hyperintensity in the periventricular, deep, and subcortic al white matter, which are nonspecific in etiology but likely reflect chronic small vessel ischemic changes. No abnormal intracranial vascular flow void is noted. The visualized paranasal sinuses demonstrate d iffuse moderate mucosal thickening. Partial opacification of the right mastoid air cells are noted. IMPRESSION: 1. No acute intracranial hemorrhage, infarction or mass. 2. Mild chronic small vessel ischemic changes. 3. Mild generalized cerebral volume loss. 4. Moderate paranasal sinus disease. partial opacification of right mastoid air cells. RPTAT: HH .Ramon Epperson MD, MD Date Time Electronically viewed and signed by .Ramon Epperson MD, MD on 09/04/2016 20:54 .N/
[2016-09-04] MEDS: INSULIN GLARGINE [LANtus] 3 ML PEN SC SCH (21:08)
[2016-09-04] MEDS ORDERED: IODIXANOL LOCM 100 ML BTL ONE (22:28)
[2016-09-04] MEDS ORDERED: SOD CHLORIDE 0.9% 100 ML ONE (22:28)
[2016-09-05] MEDS: ALBUTEROL 0.083% (NEB) 2.5 MG/3 ML AMP HHN SCH ×4 (01:36→12:10)
[2016-09-05] MEDS: PANTOPRAZOLE (EC) 40 MG TAB PO SCH (05:27)
[2016-09-05 07:18] LABS: THYROID STIMULATING HORMONE 5.22 MIU/L (0.465-4.680)
[2016-09-05 07:20] LABS: ADD SCAN DIFF NO
[2016-09-05 07:31] LABS: CALCIUM 8.9 mg/dl (8.4-10.2); CREATININE 0.94 mg/dl (0.44-1.00)
[2016-09-05 07:35] VITALS: BP 158/66; RESP 18
[2016-09-05] MEDS: Insulin NOVOLOG SS MILD Algorithm (SS with meals and bedtime) SC SCH ×4 (08:00→20:20)
--- NOTE | 2016-09-05 08:32 | RADRPT ---
PROCEDURE: XR Foot 3 Views. CLINICAL INDICATION: Right foot pain, right foot deformity TECHNIQUE: AP, oblique and lateral views of the right foot were obtained. The images were reviewe d on a PACS workstation. COMPARISON: July 09, 2014 FINDINGS: Diffuse osteopenia is identified. The osseous structures appear grossly intact. Old, healed fractu re in the base of the fifth metatarsal is observed. No destructive bony lesions are seen. Severe saucedo mmertoe deformities are identified in all of the toes. Severe narrowing of the tarsometatarsal join ts is observed. Moderate narrowing throughout the tarsal joint compartment is seen. Pes cavus is n oted. Moderate narrowing of the tibiotalar joint is seen. Plantar calcaneal and Achilles insertion h eel spurs are seen. Vascular calcifications are seen surrounding the ankle and in the foot. IMPRESSION: Osteopenia. Old, healed fracture in the base of the fifth metatarsal. Severe hammertoe deformities in all toes. Severe narrowing of the tarsometatarsal joints. Moderate narrowing throughout the tarsal joint compartment. Moderate narrowing and degenerative change at the tibiotalar joint. Pes cavus. Plantar calcaneal and Achilles insertion heel spurs. Vascular calcifications. Overall appearance is unchanged from prior exam. If further characterization is needed CT or MRI could be helpful. If there is high clinical suspicion for traumatic injury, further evaluation with CT should be consi dered. RPTAT: AA .Main Escoto MD, MD Date Time Electronically viewed and signed by .Main Escoto MD, MD on 09/05/2016 08:32 .P/
--- NOTE | 2016-09-05 08:38 | RADRPT ---
PROCEDURE: CT Chest with contrast. CLINICAL INDICATION: Cough, dyspnea, history of breast cancer TECHNIQUE: CT of the chest was performed on a multi-detector scanner following the uncomplicated I V administration of 85 cc of Visipaque 320. Coronal and sagittal images were reformatted from the a xial data set. One or more of the following dose reduction techniques were used: automated exposure control, adjustment of the mA and/or kV according to patient size, use of iterative reconstruction technique. CTDI = 4.36 mGy. DLP = 157.28 mGy-cm. COMPARISON: Chest x-ray, 09/03/2016 FINDINGS: Patchy consolidation is noted at the bilateral lung bases, greater on the right, possibly atelectasi s / scarring and/or pneumonia. Bilateral bronchial wall thickening is noted, suggestive of bronchit is. No pleural effusion, pulmonary edema or pneumothorax is identified. No pulmonary nodule or mas s is seen. The heart is mildly enlarged, without pericardial effusion. Coronary arterial and aortic atheroscle rotic calcifications are present. There is no thoracic aortic aneurysm or dissection. No mediastin al, hilar, axillary or supraclavicular lymphadenopathy is identified. Right-sided Port-A-Cath is in place. The patient is status post left mastectomy and axillary dissection. Visualized portions of the upper abdomen demonstrate no acute abnormality. The surrounding osseous structures are remarkable for degenerative spondylosis of the spine. No osteolytic or osteoblastic lesion is detected. IMPRESSION: 1. Patchy consolidation is seen at the bilateral lung bases, greater on the right, possibly atelect asis / scarring and/or pneumonia. 2. Bilateral bronchial wall thickening is noted, suggestive of bronchitis. 3. There is mild cardiomegaly. Coronary arterial and aortic atherosclerotic calcifications are pre sent. 4. Right-sided Port-A-Cath is in place. 5. The patient is status post left mastectomy and axillary dissection. 6. No mass or lymphadenopathy is identified. RPTAT: EE .Konrad Maciel MD, Date Time Electronically viewed and signed by .Konrad Maciel MD, MD on 09/05/2016 08:37 .R/
[2016-09-05] MEDS: DOCUSATE SODIUM 100 MG CAP PO SCH ×2 (08:59→20:14)
[2016-09-05] MEDS: AMLODIPINE 10 MG TAB PO SCH (09:00)
[2016-09-05] MEDS: LOSARTAN 50 MG TAB PO SCH (09:00)
--- NOTE | 2016-09-05 11:06 | PN ---
Date/Time of Note Date/Time of Note DATE: 09/05/16 TIME: 11:05 Assessment/Plan VTE Prophylaxis VTE Prophylaxis Intervention: SCD's VTE Contraindication Reason: thrombocytopenia Lines/Catheters IV [facility] Urinary Cath still in place: No Assessment/Plan Assessment/Plan 70-year-old female who was brought in by family for cough fevers and chills now admitted and managed for the followin. Sepsis secondary to right-sided pneumonia: improved 2. Diabetes mellitus type 2 : control improved 3. Chronic Normocytic anemia 4. Pancytopenia: CBC pending 5. Severe with cardiac murmur 6. Proteinuria rule out impending diabetes nephropathy 7. Chronic right-sided Charcot's foot 8. Hypothyroidism ?new diagnosis 9. Stage 2 Diastolic dysfxn with preserved EF 10. Hx of breast CA status post left-sided mastectomy in 2013/chemo/radiation/ ? Immunotherapy 11. Left-sided port in place since 2013 12. Persistent dizziness / Tinnitus 13. Excessive salivation concerning for possible radiation induced esophageal stenosis Plan: This patient has multiple comorbidities and problems and the immediate management is as follows: * Patient continues to improve regarding her pneumonia but is not quite stable for discharge still with reduced breath sounds and coarse crackles * For her tinnitus she will need to follow-up with ENT as outpatient * In view of excessive salivation, in the setting of a history of radiation therapy, patient will benefit from GI consultation and possible barium swallow. Patient does note that she is being referred for GI consultation before as well as for something that sounds like a balloon dilatation intervention * Appreciate cardiology input with management of her aortic stenosis and high blood pressure * Appreciate podiatry input, foot x-ray noted with multiple abnormalities, follow-up final action plan. * Once improved from pneumonia standpoint and cleared by GI she can continue outpatient follow-up for the rest of her comorbidities. * Obtain records from Dr Davidson's office * supportive care Subjective 24 Hr Interval Summary Free Text/Dictation Patient clarifies today that dizziness is not of tinnitus Patient also is now complaining of excessive salivation for the last 6 months. Reports sellae very small with thickened consistency more like aloe vera, and this has been concerning. She states that she has been referred as outpatient for possible GI intervention. Exam/Review of Systems Vital Signs Vitals Vital Signs Date Time Temp Pulse Resp B/P Pulse Ox O2 Delivery O2 Flow Rate FiO2 09/05/16 08:15 69 18 96 21 09/05/16 07:35 98.0 158/66 09/05/16 01:36 Nasal Cannula 2.0 Intake and Output 09/04/16 09/04/16 09/05/16 14:59 22:59 06:59 Intake Total 360 ml 320 ml Output Total 1400 ml Balance -1040 ml 320 ml Exam Constitutional: alert, frail, oriented, No distress Head: atraumatic, normocephalic Eyes: PERRL ENMT: mucosa pink and moist Neck: supple Respiratory: diminished breath sounds, other (coarse breath sounds) Cardiovascular: murmurs/extra sounds, regular rate and rhythm Gastrointestinal: bowel sounds, non-tender, soft Extremities: other (r charcot foot / externally rotated from ankle with callus+ + / ) Neurological: nl mental status, nl speech Results Result Diagram: 09/04/16 0708 09/05/16 0514 Results 24 hrs Laboratory Tests Test 09/04/16 12:26 09/04/16 17:41 09/04/16 18:56 09/04/16 20:57 Bedside Glucose 144 165 159 205 Test 09/05/16 01:46 09/05/16 05:14 09/05/16 08:06 Bedside Glucose 83 100 Sodium Level 142 Potassium Level 4.0 Chloride Level 108 Carbon Dioxide Level 26 Anion Gap 12 Blood Urea Nitrogen 22 H Creatinine 0.94 Glucose Level 53 L Calcium Level 8.9 Thyroid Stimulating Hormone (TSH) 5.220 H Free Thyroxine Index 2.42 Thyroxine (T4) 6.2 Triiodothyronine (T3) Uptake 39.0 Medications Medications Current Medications Amlodipine Besylate (Norvasc) 10 mg DAILY PO Last administered on 09/05/16 09: 00; Admin Dose 10 MG; Start 09/04/16 at 09:00 Carvedilol (Coreg) 3.125 mg DAILY PO Last administered on 09/05/16 08:59; Admin Dose 3.125 MG; Start 09/04/16 at 09:00 Docusate Sodium (Colace) 100 mg BID PO Last administered on 09/05/16 08:59; Admin Dose 100 MG; Start 09/03/16 at 21:00 Losartan Potassium (Cozaar) 100 mg DAILY PO Last administered on 09/05/16 09: 00; Admin Dose 100 MG; Start 09/04/16 at 09:00 Pantoprazole 40 mg 40 mg DAILY@06 PO Last administered on 09/05/16 05:27; Admin Dose 40 MG; Start 09/04/16 at 06:00 Levofloxacin/ Dextrose (Levaquin 750 Mg/ D5W 150 ml (Pmx)) 150 ml @ 100 mls/hr Q48H IVPB ; Start 09/05/16 at 13:30 Acetaminophen (Tylenol Tab) 650 mg Q6H PRN PO PAIN AND OR ELEVATED TEMP; Start 09/03/16 at 13:30 Enoxaparin Sodium (Lovenox) 40 mg DAILY SC Last administered on 09/04/16 09:40 ; Admin Dose 40 MG; Start 09/04/16 at 09:00; Status Future Hold Miscellaneous Information 1 ea NOTE XX ; Start 09/03/16 at 14:00 Glucose (Glutose) 15 gm Q15M PRN PO DECREASED GLUCOSE; Start 09/03/16 at 14:00 Glucose (Glutose) 22.5 gm Q15M PRN PO DECREASED GLUCOSE; Start 09/03/16 at 14: 00 Dextrose (D50w Syringe) 25 ml Q15M PRN IV DECREASED GLUCOSE; Start 09/03/16 at 14:00 Dextrose (D50w Syringe) 50 ml Q15M PRN IV DECREASED GLUCOSE Last administered on 09/04/16 03:39; Admin Dose 50 ML; Start 09/03/16 at 14:00 Glucagon (Glucagen) 1 mg Q15M PRN IM DECREASED GLUCOSE; Start 09/03/16 at 14:00 Glucose (Glutose) 15 gm Q15M PRN BUCCAL DECREASED GLUCOSE; Start 09/03/16 at 14 :00 Ondansetron HCl (Zofran Inj) 4 mg Q6H PRN IV NAUSEA AND/OR VOMITING; Start at 22:00 Insulin Glargine (Lantus) 15 unit DAILY@20 SC Last administered on 09/04/16 21 :08; Admin Dose 15 UNIT; Start 09/04/16 at 20:00 Procedures Procedures PROCEDURE: CT Chest with contrast. CLINICAL INDICATION: Cough, dyspnea, history of breast cancer TECHNIQUE: CT of the chest was performed on a multi-detector scanner following the uncomplicated IV administration of 85 cc of Visipaque 320. Coronal and sagittal images were reformatted from the axial data set. One or more of the following dose reduction techniques were used: automated exposure control, adjustment of the mA and/or kV according to patient size, use of iterative reconstruction technique. CTDI = 4.36 mGy. DLP = 157.28 mGy-cm. COMPARISON: Chest x-ray, 09/03/2016 FINDINGS: Patchy consolidation is noted at the bilateral lung bases, greater on the right , possibly atelectasis / scarring and/or pneumonia. Bilateral bronchial wall thickening is noted, suggestive of bronchitis. No pleural effusion, pulmonary edema or pneumothorax is identified. No pulmonary nodule or mass is seen. The heart is mildly enlarged, without pericardial effusion. Coronary arterial and aortic atherosclerotic calcifications are present. There is no thoracic aortic aneurysm or dissection. No mediastinal, hilar, axillary or supraclavicular lymphadenopathy is identified. Right-sided Port-A-Cath is in place. The patient is status post left mastectomy and axillary dissection. Visualized portions of the upper abdomen demonstrate no acute abnormality. The surrounding osseous structures are remarkable for degenerative spondylosis of the spine. No osteolytic or osteoblastic lesion is detected. IMPRESSION: 1. Patchy consolidation is seen at the bilateral lung bases, greater on the right, possibly atelectasis / scarring and/or pneumonia. 2. Bilateral bronchial wall thickening is noted, suggestive of bronchitis. 3. There is mild cardiomegaly. Coronary arterial and aortic atherosclerotic calcifications are present. 4. Right-sided Port-A-Cath is in place. 5. The patient is status post left mastectomy and axillary dissection. 6. No mass or lymphadenopathy is identified. RPTAT: EE .Konrad Maciel MD, MD Date Time Electronically viewed and signed by .Konrad Maciel MD, on 09/05/2016 08: 37 .R/ CC: JIMBO ZAVALETA PROCEDURE: MRI Brain without contrast. CLINICAL INDICATION: Dizziness. History of breast cancer and radiation. TECHNIQUE: An MRI of the brain was performed utilizing the following sequences : Sagittal and axial T1 weighted, axial T2 weighted, axial diffusion weighted with ADC mapping, coronal GRE, and axial FLAIR. COMPARISON: Brain CT 04/07/2015. FINDINGS: No diffusion weighted abnormalities are seen to suggest the presence of acute ischemia or recent infarct. No hypointense signal abnormalities are seen on the GRE images to suggest the presence of blood degradation products. There is no evidence of intracranial hemorrhage, mass effect, or midline shift. No extra- axial fluid collections are seen. The ventricles and sulci are mildly enlarged indicative of volume loss. There are mild scattered foci of T2 FLAIR hyperintensity in the periventricular , deep, and subcortical white matter, which are nonspecific in etiology but likely reflect chronic small vessel ischemic changes. No abnormal intracranial vascular flow void is noted. The visualized paranasal sinuses demonstrate diffuse moderate mucosal thickening. Partial opacification of the right mastoid air cells are noted. IMPRESSION: 1. No acute intracranial hemorrhage, infarction or mass. 2. Mild chronic small vessel ischemic changes. 3. Mild generalized cerebral volume loss. 4. Moderate paranasal sinus disease. partial opacification of right mastoid air cells. RPTAT: .Ramon Epperson MD, MD Date Time Electronically viewed and signed by .Ramon Epperson MD, MD on 09/04/2016 20: 54 .N/ CC: JIMBO ZAVALETA PROCEDURE: XR Foot 3 Views. CLINICAL INDICATION: Right foot pain, right foot deformity TECHNIQUE: AP, oblique and lateral views of the right foot were obtained. The images were reviewed on a PACS workstation. COMPARISON: July 09, 2014 FINDINGS: Diffuse osteopenia is identified. The osseous structures appear grossly intact. Old, healed fracture in the base of the fifth metatarsal is observed. No destructive bony lesions are seen. Severe hammertoe deformities are identified in all of the toes. Severe narrowing of the tarsometatarsal joints is observed. Moderate narrowing throughout the tarsal joint compartment is seen. Pes cavus is noted. Moderate narrowing of the tibiotalar joint is seen. Plantar calcaneal and Achilles insertion heel spurs are seen. Vascular calcifications are seen surrounding the ankle and in the foot. IMPRESSION: Osteopenia. Old, healed fracture in the base of the fifth metatarsal. Severe hammertoe deformities in all toes. Severe narrowing of the tarsometatarsal joints. Moderate narrowing throughout the tarsal joint compartment. Moderate narrowing and degenerative change at the tibiotalar joint. Pes cavus. Plantar calcaneal and Achilles insertion heel spurs. Vascular calcifications. Overall appearance is unchanged from prior exam. If further characterization is needed CT or MRI could be helpful. If there is high clinical suspicion for traumatic injury, further evaluation with CT should be considered. RPTAT: AA .Main Escoto MD, MD Date Time Electronically viewed and signed by .Main Escoto MD, MD on 09/05/2016 08:32 .P/ CC: RACHID IRBY DPM, BOLATITO M. Jun 17, 2017 11:06
--- NOTE | 2016-09-05 11:25 | CONS ---
Date/Time of Note Date/Time of Note DATE: 09/05/16 TIME: 11:24 Assessment/Plan Assessment/Plan Chief Complaint/Hosp Course Pneumonia Preserved ejection fraction At least moderate aortic stenosis Hypertension Diabetes Problems: Additional Assessment/Plan 1) Avoid increase of beta vivian 2) ABX Consultation Date/Type/Reason Admit Date/Time Sep 03, 2016 at 13:30 Initial Consult Date Type of Consultation: cv Detailed Summary Respiratory: shortness of breath Cardiovascular: no complaints Gastrointestinal: no complaints Musculoskeletal: no complaints Skin: no complaints Neurologic: no complaints Exam/Review of Systems Vital Signs Vitals Vital Signs Date Time Temp Pulse Resp B/P Pulse Ox O2 Delivery O2 Flow Rate FiO2 09/05/16 08:15 69 18 96 21 09/05/16 07:35 98.0 158/66 09/05/16 01:36 Nasal Cannula 2.0 Intake and Output 09/04/16 09/04/16 09/05/16 15:00 23:00 07:00 Intake Total 360 ml 320 ml Output Total 1400 ml Balance -1040 ml 320 ml Exam Head: atraumatic, normocephalic Neck: supple Respiratory: clear to auscultation Cardiovascular: regular rate and rhythm, systolic murmur Gastrointestinal: soft Musculoskeletal: nl extremities to inspection Extremities: normal pulses Results Result Diagram: 09/04/16 0708 09/05/16 0514 Results 24 hrs Laboratory Tests Test 09/04/16 12:26 09/04/16 17:41 09/04/16 18:56 09/04/16 20:57 Bedside Glucose 144 165 159 205 Test 09/05/16 01:46 09/05/16 05:14 09/05/16 08:06 Bedside Glucose 83 100 Sodium Level 142 Potassium Level 4.0 Chloride Level 108 Carbon Dioxide Level 26 Anion Gap 12 Blood Urea Nitrogen 22 H Creatinine 0.94 Glucose Level 53 L Calcium Level 8.9 Thyroid Stimulating Hormone (TSH) 5.220 H Free Thyroxine Index 2.42 Thyroxine (T4) 6.2 Triiodothyronine (T3) Uptake 39.0 Medications Medications Current Medications Amlodipine Besylate (Norvasc) 10 mg DAILY PO Last administered on 09/05/16 09: 00; Admin Dose 10 MG; Start 09/04/16 at 09:00 Carvedilol (Coreg) 3.125 mg DAILY PO Last administered on 09/05/16 08:59; Admin Dose 3.125 MG; Start 09/04/16 at 09:00 Docusate Sodium (Colace) 100 mg BID PO Last administered on 09/05/16 08:59; Admin Dose 100 MG; Start 09/03/16 at 21:00 Losartan Potassium (Cozaar) 100 mg DAILY PO Last administered on 09/05/16 09: 00; Admin Dose 100 MG; Start 09/04/16 at 09:00 Pantoprazole 40 mg 40 mg DAILY@06 PO Last administered on 09/05/16 05:27; Admin Dose 40 MG; Start 09/04/16 at 06:00 Levofloxacin/ Dextrose (Levaquin 750 Mg/ D5W 150 ml (Pmx)) 150 ml @ 100 mls/hr Q48H IVPB ; Start 09/05/16 at 13:30 Acetaminophen (Tylenol Tab) 650 mg Q6H PRN PO PAIN AND OR ELEVATED TEMP; Start 09/03/16 at 13:30 Enoxaparin Sodium (Lovenox) 40 mg DAILY SC Last administered on 09/04/16 09:40 ; Admin Dose 40 MG; Start 09/04/16 at 09:00; Status Future Hold Miscellaneous Information 1 ea NOTE XX ; Start 09/03/16 at 14:00 Glucose (Glutose) 15 gm Q15M PRN PO DECREASED GLUCOSE; Start 09/03/16 at 14:00 Glucose (Glutose) 22.5 gm Q15M PRN PO DECREASED GLUCOSE; Start 09/03/16 at 14: 00 Dextrose (D50w Syringe) 25 ml Q15M PRN IV DECREASED GLUCOSE; Start 09/03/16 at 14:00 Dextrose (D50w Syringe) 50 ml Q15M PRN IV DECREASED GLUCOSE Last administered on 09/04/16 03:39; Admin Dose 50 ML; Start 09/03/16 at 14:00 Glucagon (Glucagen) 1 mg Q15M PRN IM DECREASED GLUCOSE; Start 09/03/16 at 14:00 Glucose (Glutose) 15 gm Q15M PRN BUCCAL DECREASED GLUCOSE; Start 09/03/16 at 14 :00 Ondansetron HCl (Zofran Inj) 4 mg Q6H PRN IV NAUSEA AND/OR VOMITING; Start at 22:00 Insulin Glargine (Lantus) 15 unit DAILY@20 SC Last administered on 09/04/16t 21 :08; Admin Dose 15 UNIT; Start 09/04/16 at 20:00 JO ANN HARTLEY MD Sep 05, 2016 11:25
[2016-09-05 12:26] LABS: BASOPHILS % 0.2 % (0.0-2.0); EOSINOPHILS # 0.2 10^3/ul (0.0-0.5); EOSINOPHILS % 3.1 % (0.0-7.0); HEMATOCRIT 25.7 % (37.0-47.0); HEMOGLOBIN 8.7 g/dl (12.0-16.0); LYMPHOCYTES # 1.4 10^3/ul (0.8-2.9); LYMPHOCYTES % 24.1 % (15.0-51.0); MEAN CORPUSCULAR HEMOGLOBIN 30.6 pg (29.0-33.0); MEAN CORPUSCULAR HGB CONC 33.9 g/dl (32.0-37.0); MEAN CORPUSCULAR VOLUME 90.5 fl (82.0-101.0); MEAN PLATELET VOLUME 9.9 fl (7.4-10.4); MONOCYTE # 0.3 10^3/ul (0.3-0.9); MONOCYTES % 5.7 % (0.0-11.0); NEUTROPHIL # 3.8 10^3/ul (1.6-7.5); NEUTROPHILS % 66.4 % (39.0-77.0); PLATELET COUNT 133 10^3/UL (140-415); RED BLOOD COUNT 2.84 10^6/ul (4.20-5.40); WHITE BLOOD COUNT 5.8 10^3/ul (4.8-10.8)
[2016-09-05] MEDS: GABAPENTIN 100 MG CAP PO SCH ×2 (12:39→20:13)
[2016-09-05 13:09] LABS: IRON 60 ug/dl (35-150)
[2016-09-05 13:19] LABS: TOTAL IRON BINDING CAPACITY 188 ug/dl (241-421)
[2016-09-05] MEDS: LEVOFLOXACIN 750MG/D5W (PMX) 150 ML IVPB SCH (14:01)
--- NOTE | 2016-09-05 14:11 | CONS ---
Date/Time of Note Date/Time of Note DATE: 09/05/16 TIME: 14:02 Assessment/Plan Assessment/Plan Chief Complaint/Hosp Course Podiatry: Right Charcot with risk of ulcer formation. Problems: Additional Assessment/Plan Right foot Charcot. No active wound/ulcer at this time. Will need to F[facility]U at [facility] with Dr. Garvin for [place] JOLLA boot or Custom shoes to accommodate Charcot deformity. Will contact daughter (Maricruz) to schedule F/U. Consultation Date/Type/Reason Admit Date/Time Sep 03, 2016 at 13:30 Date of Consultation: Sep 05, 2016 Type of Consultation: Podiatry: Virgie Reason for Consultation Right Charcot. Hx of Present Illness Pt with pneumonia. Podiatry consult for Right Charcot foot. Respiratory: shortness of breath Cardiovascular: no complaints Gastrointestinal: no complaints Musculoskeletal: no complaints Skin: no complaints Neurologic: no complaints Past Medical History Medical History: diabetes, hypertension Social History Alcohol Use: none Smoking Status: Never smoker Exam/Review of Systems Vital Signs Vitals Vital Signs Date Time Temp Pulse Resp B/P Pulse Ox O2 Delivery O2 Flow Rate FiO2 09/05/16 12:12 78 18 96 21 09/05/16 07:35 98.0 158/66 09/05/16 01:36 Nasal Cannula 2.0 Intake and Output 09/04/16 09/04/16 09/05/16 15:00 23:00 07:00 Intake Total 360 ml 320 ml Output Total 1400 ml Balance -1040 ml 320 ml Exam Right foot Charcot with adductovarus deformity. X-rays reveal healed fracture at 5th metatarsal, proximal shaft. Clinically correlated to area of skin callus on the plantar-lateral foot. Concern for pre- ulcerative lesion. Currently no open wounds. Large 1cm circular callus. Results Result Diagram: 09/05/16 1137 09/05/16 0514 Results 24 hrs Laboratory Tests Test 09/04/16 17:41 09/04/16 18:56 09/04/16 20:57 09/05/16 01:46 Bedside Glucose 165 159 205 83 Test 09/05/16 05:14 09/05/16 08:06 09/05/16 11:37 09/05/16 12:34 Sodium Level 142 Potassium Level 4.0 Chloride Level 108 Carbon Dioxide Level 26 Anion Gap 12 Blood Urea Nitrogen 22 H Creatinine 0.94 Glucose Level 53 L Calcium Level 8.9 Iron Level 60 Total Iron Binding Capacity 188 L Percent Iron Saturation 32 Thyroid Stimulating Hormone (TSH) 5.220 H Free Thyroxine Index 2.42 Thyroxine (T4) 6.2 Triiodothyronine (T3) Uptake 39.0 Bedside Glucose 100 185 White Blood Count 5.8 # Red Blood Count 2.84 L Hemoglobin 8.7 L Hematocrit 25.7 L Mean Corpuscular Volume 90.5 Mean Corpuscular Hemoglobin 30.6 Mean Corpuscular Hemoglobin Concent 33.9 Red Cell Distribution Width 14.0 Platelet Count 133 #L Mean Platelet Volume 9.9 Neutrophils % 66.4 Lymphocytes % 24.1 Monocytes % 5.7 Eosinophils % 3.1 Basophils % 0.2 Nucleated Red Blood Cells % 0.0 Neutrophils # 3.8 Lymphocytes # 1.4 Monocytes # 0.3 Eosinophils # 0.2 Basophils # 0.0 Nucleated Red Blood Cells # 0.0 Medications Medications Current Medications Amlodipine Besylate (Norvasc) 10 mg DAILY PO Last administered on 09/05/16 09: 00; Admin Dose 10 MG; Start 09/04/16 at 09:00 Carvedilol (Coreg) 3.125 mg DAILY PO Last administered on 09/05/16 08:59; Admin Dose 3.125 MG; Start 09/04/16 at 09:00 Docusate Sodium (Colace) 100 mg BID PO Last administered on 09/05/16 08:59; Admin Dose 100 MG; Start 09/03/16 at 21:00 Losartan Potassium (Cozaar) 100 mg DAILY PO Last administered on 09/05/16 09: 00; Admin Dose 100 MG; Start 09/04/16 at 09:00 Pantoprazole 40 mg 40 mg DAILY@06 PO Last administered on 09/05/16 05:27; Admin Dose 40 MG; Start 09/04/16 at 06:00 Levofloxacin/ Dextrose (Levaquin 750 Mg/ D5W 150 ml (Pmx)) 150 ml @ 100 mls/hr Q48H IVPB ; Start 09/05/16 at 13:30 Acetaminophen (Tylenol Tab) 650 mg Q6H PRN PO PAIN AND OR ELEVATED TEMP; Start 09/03/16 at 13:30 Enoxaparin Sodium (Lovenox) 40 mg DAILY SC Last administered on 09/04/16 09:40 ; Admin Dose 40 MG; Start 09/04/16 at 09:00; Status Future Hold Miscellaneous Information 1 ea NOTE XX ; Start 09/03/16 at 14:00 Glucose (Glutose) 15 gm Q15M PRN PO DECREASED GLUCOSE; Start 09/03/16 at 14:00 Glucose (Glutose) 22.5 gm Q15M PRN PO DECREASED GLUCOSE; Start 09/03/16 at 14: 00 Dextrose (D50w Syringe) 25 ml Q15M PRN IV DECREASED GLUCOSE; Start 09/03/16 at 14:00 Dextrose (D50w Syringe) 50 ml Q15M PRN IV DECREASED GLUCOSE Last administered on 09/04/16 03:39; Admin Dose 50 ML; Start 09/03/16 at 14:00 Glucagon (Glucagen) 1 mg Q15M PRN IM DECREASED GLUCOSE; Start 09/03/16 at 14:00 Glucose (Glutose) 15 gm Q15M PRN BUCCAL DECREASED GLUCOSE; Start 09/03/16 at 14 :00 Ondansetron HCl (Zofran Inj) 4 mg Q6H PRN IV NAUSEA AND/OR VOMITING; Start at 22:00 Insulin Glargine (Lantus) 15 unit DAILY@20 SC Last administered on 09/04/16 21 :08; Admin Dose 15 UNIT; Start 09/04/16 at 20:00 Gabapentin (Neurontin) 100 mg TID PO Last administered on 09/05/16 12:39; Admin Dose 100 MG; Start 09/05/16 at 13:00 WALTER PETERSEN DPM Sep 05, 2016 14:11
[2016-09-05] MEDS ORDERED: BARIUM SULFATE 135 ML (E-Z HD) PO ONE (16:11)
--- NOTE | 2016-09-05 19:13 | RADRPT ---
PROCEDURE: X-ray, Esophagram. CLINICAL INDICATION: Dysphasia. TECHNIQUE: Fluoroscopic observation of the upper gastrointestinal tract was performed during the o ral administration of thin barium contrast. Multiple spot fluoroscopic images of the esophagus, sto mach and duodenum were obtained. 8 fluoroscopic cine image sequences were obtained. COMPARISON: Barium esophagram 07/10/2016. Small study 07/10/2016. FINDINGS: The hypopharynx distended with secretions. The vallecula and piriform sinuses are clear and symmetri c. There is short segment smooth narrowing of the cervical esophagus likely corresponding to a foca l stricture. This is similar in appearance when compared to prior examinations. The remainder of th e esophagus is normal in caliber with scattered tertiary contractions. Intermittent reflux is obser cara. Limited images of the stomach and proximal duodenum are unremarkable. Coughing with aspiration into the airway is observed after multiple sips of barium contrast. The examination was subsequentl y terminated. IMPRESSION: Short segment smooth narrowing of the cervical esophagus likely corresponding to a focal stricture. Correlate with endoscopy. Coughing with aspiration of barium contrast. Intermittent gastroesophageal reflux. RPTAT: HLST .Mayelin Sinclair MD, Date Time Electronically viewed and signed by .Mayelin Sinclair MD, on 09/05/2016 18:05 .T/
[2016-09-05] MEDS: ALBUTEROL 0.083% (NEB) 2.5 MG/3 ML AMP HHN PRN (20:07)
[2016-09-05 20:08] VITALS: BP 151/69; RESP 20
[2016-09-05] MEDS: INSULIN GLARGINE [LANtus] 3 ML PEN SC SCH (20:17)
[2016-09-05] MEDS: GUAIFENESIN 20 MG/ML 5ML CUP PO PRN (21:44)
[2016-09-06] MEDS: PANTOPRAZOLE (EC) 40 MG TAB PO SCH (05:58)
[2016-09-06 07:59] VITALS: BP 162/70; RESP 18
[2016-09-06] MEDS: Insulin NOVOLOG SS MILD Algorithm (SS with meals and bedtime) SC SCH ×4 (08:00→20:25)
[2016-09-06] MEDS: AMLODIPINE 10 MG TAB PO SCH (08:14)
[2016-09-06] MEDS: LOSARTAN 50 MG TAB PO SCH (08:15)
[2016-09-06] MEDS: DOCUSATE SODIUM 100 MG CAP PO SCH ×2 (08:15→20:56)
[2016-09-06] MEDS: GABAPENTIN 100 MG CAP PO SCH ×3 (08:15→20:56)
[2016-09-06 08:43] LABS: ADD SCAN DIFF NO
[2016-09-06 08:52] LABS: BASOPHILS % 0.4 % (0.0-2.0); EOSINOPHILS # 0.2 10^3/ul (0.0-0.5); HEMATOCRIT 25.2 % (37.0-47.0); HEMOGLOBIN 8.1 g/dl (12.0-16.0); LYMPHOCYTES # 1.4 10^3/ul (0.8-2.9); LYMPHOCYTES % 28.5 % (15.0-51.0); MEAN CORPUSCULAR HEMOGLOBIN 29.3 pg (29.0-33.0); MEAN CORPUSCULAR HGB CONC 32.1 g/dl (32.0-37.0); MEAN CORPUSCULAR VOLUME 91.3 fl (82.0-101.0); MEAN PLATELET VOLUME 10.1 fl (7.4-10.4); MONOCYTE # 0.4 10^3/ul (0.3-0.9); NEUTROPHIL # 2.8 10^3/ul (1.6-7.5); NEUTROPHILS % 58.7 % (39.0-77.0); PLATELET COUNT 129 10^3/UL (140-415); RED BLOOD COUNT 2.76 10^6/ul (4.20-5.40); RED CELL DISTRIBUTION WIDTH 13.9 % (11.5-14.5); WHITE BLOOD COUNT 4.7 10^3/ul (4.8-10.8)
[2016-09-06 09:19] LABS: CALCIUM 8.5 mg/dl (8.4-10.2); CREATININE 1.09 mg/dl (0.44-1.00); POTASSIUM 4.5 mmol/L (3.5-5.1)
--- NOTE | 2016-09-06 10:16 | PN ---
Date/Time of Note Date/Time of Note DATE: 09/06/16 TIME: 10:07 Assessment/Plan VTE Prophylaxis VTE Prophylaxis Intervention: SCD's VTE Contraindication Reason: thrombocytopenia Lines/Catheters IV Catheter Type (from Nrs): Saline Lock Urinary Cath still in place: No Assessment/Plan Assessment/Plan 70-year-old female who was brought in by family for cough fevers and chills now admitted and managed for the followin. Sepsis secondary to right-sided pneumonia: improved 2. Diabetes mellitus type 2 : control improved 3. Chronic Normocytic anemia 4. Pancytopenia: stable / no iron deficiency 5. Moderate with cardiac murmur 6. Proteinuria rule out impending diabetes nephropathy: patient on max ARB dosing 7. Chronic right-sided Charcot's foot 8. Subclinical hypothyroidism: needs repeat screen in 4-6 weeks 9. Stage 2 Diastolic dysfxn with preserved EF 10. Hx of breast CA status post left-sided mastectomy in 2013/chemo/radiation/ ? Immunotherapy 11. Left-sided port in place since 2013 12. Persistent dizziness / Tinnitus: Negative MRI / outpt ENT f/u 13. 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 Garvin for NISQUALLY boot or Custom shoes to accommodate Charcot deformity. * supportive care Subjective 24 Hr Interval Summary Free Text/Dictation Patient seen and examined. Barium swallow noted Exam/Review of Systems Vital Signs Vitals Vital Signs Date Time Temp Pulse Resp B/P Pulse Ox O2 Delivery O2 Flow Rate FiO2 09/06/16 07:59 97.5 75 18 162/70 95 09/05/16 20:07 21 09/05/16 01:36 Nasal Cannula 2.0 Intake and Output 09/05/16 09/05/16 09/06/16 14:59 22:59 06:59 Intake Total 2030 ml 500 ml Output Total 1100 ml 800 ml Balance 930 ml -300 ml Exam Constitutional: alert, frail, oriented, No distress Head: atraumatic, normocephalic Eyes: PERRL ENMT: mucosa pink and moist Neck: supple Respiratory: diminished breath sounds, other (coarse breath sounds) Cardiovascular: murmurs/extra sounds, regular rate and rhythm Gastrointestinal: bowel sounds, non-tender, soft Extremities: other (r charcot foot / externally rotated from ankle with callus+ + / ) Neurological: nl mental status, nl speech Results Result Diagram: 09/06/16 0810 09/06/16 0810 Results 24 hrs Laboratory Tests Test 09/05/16 11:37 09/05/16 12:34 09/05/16 20:01 09/06/16 02:35 White Blood Count 5.8 # Red Blood Count 2.84 L Hemoglobin 8.7 L Hematocrit 25.7 L Mean Corpuscular Volume 90.5 Mean Corpuscular Hemoglobin 30.6 Mean Corpuscular Hemoglobin Concent 33.9 Red Cell Distribution Width 14.0 Platelet Count 133 #L Mean Platelet Volume 9.9 Neutrophils % 66.4 Lymphocytes % 24.1 Monocytes % 5.7 Eosinophils % 3.1 Basophils % 0.2 Nucleated Red Blood Cells % 0.0 Neutrophils # 3.8 Lymphocytes # 1.4 Monocytes # 0.3 Eosinophils # 0.2 Basophils # 0.0 Nucleated Red Blood Cells # 0.0 Bedside Glucose 185 243 H 154 Test 09/06/16 07:57 09/06/16 08:10 Bedside Glucose 72 White Blood Count 4.7 L Red Blood Count 2.76 L Hemoglobin 8.1 L Hematocrit 25.2 L Mean Corpuscular Volume 91.3 Mean Corpuscular Hemoglobin 29.3 Mean Corpuscular Hemoglobin Concent 32.1 Red Cell Distribution Width 13.9 Platelet Count 129 L Mean Platelet Volume 10.1 Neutrophils % 58.7 Lymphocytes % 28.5 Monocytes % 8.0 Eosinophils % 4.0 Basophils % 0.4 Nucleated Red Blood Cells % 0.0 Neutrophils # 2.8 Lymphocytes # 1.4 Monocytes # 0.4 Eosinophils # 0.2 Basophils # 0.0 Nucleated Red Blood Cells # 0.0 Sodium Level 137 Potassium Level 4.5 Chloride Level 103 Carbon Dioxide Level 28 Anion Gap 11 Blood Urea Nitrogen 25 H Creatinine 1.09 H Glucose Level 63 #L Calcium Level 8.5 Medications Medications Current Medications Amlodipine Besylate (Norvasc) 10 mg DAILY PO Last administered on 09/06/16t 08: 14; Admin Dose 10 MG; Start 09/04/16 at 09:00 Carvedilol (Coreg) 3.125 mg DAILY PO Last administered on 09/06/16 08:15; Admin Dose 3.125 MG; Start 09/04/16 at 09:00 Docusate Sodium (Colace) 100 mg BID PO Last administered on 09/06/16 08:15; Admin Dose 100 MG; Start 09/03/16 at 21:00 Losartan Potassium (Cozaar) 100 mg DAILY PO Last administered on 09/06/16 08: 15; Admin Dose 100 MG; Start 09/04/16 at 09:00 Pantoprazole 40 mg 40 mg DAILY@06 PO Last administered on 09/06/16 05:58; Admin Dose 40 MG; Start 09/04/16 at 06:00 Levofloxacin/ Dextrose (Levaquin 750 Mg/ D5W 150 ml (Pmx)) 150 ml @ 100 mls/hr Q48H IVPB Last administered on 09/05/16 14:01; Admin Dose 100 MLS/HR; Start at 13:30 Acetaminophen (Tylenol Tab) 650 mg Q6H PRN PO PAIN AND OR ELEVATED TEMP; Start 09/03/16 at 13:30 Enoxaparin Sodium (Lovenox) 40 mg DAILY SC Last administered on 09/04/16 09:40 ; Admin Dose 40 MG; Start 09/04/16 at 09:00; Status Future Hold Miscellaneous Information 1 ea NOTE XX ; Start 09/03/16 at 14:00 Glucose (Glutose) 15 gm Q15M PRN PO DECREASED GLUCOSE; Start 09/03/16 at 14:00 Glucose (Glutose) 22.5 gm Q15M PRN PO DECREASED GLUCOSE; Start 09/03/16 at 14: 00 Dextrose (D50w Syringe) 25 ml Q15M PRN IV DECREASED GLUCOSE; Start 09/03/16 at 14:00 Dextrose (D50w Syringe) 50 ml Q15M PRN IV DECREASED GLUCOSE Last administered on 09/04/16 03:39; Admin Dose 50 ML; Start 09/03/16 at 14:00 Glucagon (Glucagen) 1 mg Q15M PRN IM DECREASED GLUCOSE; Start 09/03/16 at 14:00 Glucose (Glutose) 15 gm Q15M PRN BUCCAL DECREASED GLUCOSE; Start 09/03/16 at 14 :00 Ondansetron HCl (Zofran Inj) 4 mg Q6H PRN IV NAUSEA AND/OR VOMITING; Start at 22:00 Insulin Glargine (Lantus) 15 unit DAILY@20 SC Last administered on 09/05/16 20 :17; Admin Dose 15 UNIT; Start 09/04/16 at 20:00 Gabapentin (Neurontin) 100 mg TID PO Last administered on 09/06/16 08:15; Admin Dose 100 MG; Start 09/05/16 at 13:00 Guaifenesin (Robitussin Liquid Cup) 200 mg Q4H PRN PO COUGH Last administered on 09/05/16 21:44; Admin Dose 200 MG; Start 09/05/16 at 19:00 Procedures Procedures PROCEDURE: X-ray, Esophagram. CLINICAL INDICATION: Dysphasia. TECHNIQUE: Fluoroscopic observation of the upper gastrointestinal tract was performed during the oral administration of thin barium contrast. Multiple spot fluoroscopic images of the esophagus, stomach and duodenum were obtained. 8 fluoroscopic cine image sequences were obtained. COMPARISON: Barium esophagram 07/10/2016. Small study 07/10/2016. FINDINGS: The hypopharynx distended with secretions. The vallecula and piriform sinuses are clear and symmetric. There is short segment smooth narrowing of the cervical esophagus likely corresponding to a focal stricture. This is similar in appearance when compared to prior examinations. The remainder of the esophagus is normal in caliber with scattered tertiary contractions. Intermittent reflux is observed. Limited images of the stomach and proximal duodenum are unremarkable. Coughing with aspiration into the airway is observed after multiple sips of barium contrast. The examination was subsequently terminated. IMPRESSION: Short segment smooth narrowing of the cervical esophagus likely corresponding to a focal stricture. Correlate with endoscopy. Coughing with aspiration of barium contrast. Intermittent gastroesophageal reflux. RPTAT: HLST .Mayelin Sinclair MD, Date Time Electronically viewed and signed by .Mayelin Sinclair MD, MD on 09/05/2016 18:05 .T/ CC: MEGHANN,JIMBO Mera. JIMBO ZAVALETA 18, 2017 10:16
--- NOTE | 2016-09-06 11:38 | CONS ---
Date/Time of Note Date/Time of Note DATE: 09/06/16 TIME: 11:37 Assessment/Plan Assessment/Plan Additional Assessment/Plan Pneumonia Preserved ejection fraction At least moderate aortic stenosis Hypertension Diabetes -Hydralazine has been started by primary team. No new cardiac orders at the current time. Consultation Date/Type/Reason Admit Date/Time Sep 03, 2016 at 13:30 Initial Consult Date 09/05/16 Type of Consultation: cv 24 HR Interval Summary Free Text/Dictation Patient seen and examined, no shortness of breath Exam/Review of Systems Vital Signs Vitals Vital Signs Date Time Temp Pulse Resp B/P Pulse Ox O2 Delivery O2 Flow Rate FiO2 09/06/16 07:59 97.5 75 18 162/70 95 09/05/16 20:07 21 09/05/16 01:36 Nasal Cannula 2.0 Intake and Output 09/05/16 09/05/16 09/06/16 15:00 23:00 07:00 Intake Total 2030 ml 500 ml Output Total 1100 ml 800 ml Balance 930 ml -300 ml Exam No apparent distress Constitutional: alert, oriented Head: normocephalic Respiratory: other (Coarse breath sounds bilaterally, no wheezing) Cardiovascular: other (S1-S2 heard), regular rate and rhythm, systolic murmur Gastrointestinal: bowel sounds, non-tender, soft Extremities: edema (Trace) Results Result Diagram: 09/06/16 0810 09/06/16 0810 Results 24 hrs Laboratory Tests Test 09/05/16 12:34 09/05/16 20:01 09/06/16 02:35 09/06/16 07:57 Bedside Glucose 185 243 H 154 72 Test 09/06/16 08:10 White Blood Count 4.7 L Red Blood Count 2.76 L Hemoglobin 8.1 L Hematocrit 25.2 L Mean Corpuscular Volume 91.3 Mean Corpuscular Hemoglobin 29.3 Mean Corpuscular Hemoglobin Concent 32.1 Red Cell Distribution Width 13.9 Platelet Count 129 L Mean Platelet Volume 10.1 Neutrophils % 58.7 Lymphocytes % 28.5 Monocytes % 8.0 Eosinophils % 4.0 Basophils % 0.4 Nucleated Red Blood Cells % 0.0 Neutrophils # 2.8 Lymphocytes # 1.4 Monocytes # 0.4 Eosinophils # 0.2 Basophils # 0.0 Nucleated Red Blood Cells # 0.0 Sodium Level 137 Potassium Level 4.5 Chloride Level 103 Carbon Dioxide Level 28 Anion Gap 11 Blood Urea Nitrogen 25 H Creatinine 1.09 H Glucose Level 63 #L Calcium Level 8.5 Medications Medications Current Medications Amlodipine Besylate (Norvasc) 10 mg DAILY PO Last administered on 09/06/16 08: 14; Admin Dose 10 MG; Start 09/04/16 at 09:00 Carvedilol (Coreg) 3.125 mg DAILY PO Last administered on 09/06/16 08:15; Admin Dose 3.125 MG; Start 09/04/16 at 09:00 Docusate Sodium (Colace) 100 mg BID PO Last administered on 09/06/16 08:15; Admin Dose 100 MG; Start 09/03/16 at 21:00 Losartan Potassium (Cozaar) 100 mg DAILY PO Last administered on 09/06/16 08: 15; Admin Dose 100 MG; Start 09/04/16 at 09:00 Pantoprazole 40 mg 40 mg DAILY@06 PO Last administered on 09/06/16 05:58; Admin Dose 40 MG; Start 09/04/16 at 06:00 Levofloxacin/ Dextrose (Levaquin 750 Mg/ D5W 150 ml (Pmx)) 150 ml @ 100 mls/hr Q48H IVPB Last administered on 09/05/16 14:01; Admin Dose 100 MLS/HR; Start at 13:30 Acetaminophen (Tylenol Tab) 650 mg Q6H PRN PO PAIN AND OR ELEVATED TEMP; Start 09/03/16 at 13:30 Enoxaparin Sodium (Lovenox) 40 mg DAILY SC Last administered on 09/04/16 09:40 ; Admin Dose 40 MG; Start 09/04/16 at 09:00; Status Future Hold Miscellaneous Information 1 ea NOTE XX ; Start 09/03/16 at 14:00 Glucose (Glutose) 15 gm Q15M PRN PO DECREASED GLUCOSE; Start 09/03/16 at 14:00 Glucose (Glutose) 22.5 gm Q15M PRN PO DECREASED GLUCOSE; Start 09/03/16 at 14: 00 Dextrose (D50w Syringe) 25 ml Q15M PRN IV DECREASED GLUCOSE; Start 09/03/16 at 14:00 Dextrose (D50w Syringe) 50 ml Q15M PRN IV DECREASED GLUCOSE Last administered on 09/04/16 03:39; Admin Dose 50 ML; Start 09/03/16 at 14:00 Glucagon (Glucagen) 1 mg Q15M PRN IM DECREASED GLUCOSE; Start 09/03/16 at 14:00 Glucose (Glutose) 15 gm Q15M PRN BUCCAL DECREASED GLUCOSE; Start 09/03/16 at 14 :00 Ondansetron HCl (Zofran Inj) 4 mg Q6H PRN IV NAUSEA AND/OR VOMITING; Start at 22:00 Gabapentin (Neurontin) 100 mg TID PO Last administered on 09/06/16 08:15; Admin Dose 100 MG; Start 09/05/16 at 13:00 Guaifenesin (Robitussin Liquid Cup) 200 mg Q4H PRN PO COUGH Last administered on 09/05/16 21:44; Admin Dose 200 MG; Start 09/05/16 at 19:00 Insulin Glargine (Lantus) 7 unit DAILY@20 SC ; Start 09/06/16 at 20:00 Hydralazine HCl (Apresoline) 25 mg BID PO ; Start 09/06/16 at 10:30 Joel Coulter DO Sep 06, 2016 11:38
--- NOTE | 2016-09-06 11:47 | CONS ---
Date/Time of Note Date/Time of Note DATE: 09/06/16 TIME: 11:38 Assessment/Plan Assessment/Plan Additional Assessment/Plan Assessment: Dysphagia/probable history of radiation Pneumonitis/improving History of breast cancer postmastectomy chemotherapy and complete course 2013 Diabetes mellitus type 2 Hypertension History of congestive heart failure Plan: EGD possible dilatation. Patient informed procedure including risks, benefits and alternatives. Agreeable to proceed Consultation Date/Type/Reason Admit Date/Time Sep 03, 2016 at 13:30 Date of Consultation: Sep 06, 2016 Reason for Consultation Dysphagia Hx of Present Illness 68-year-old female hospitalized with pneumonia, responding well to antibiotics. The patient has also reported significant difficulty swallowing and excess salivation. The patient has previous history of breast cancer and apparently received chemotherapy on several occasions but was not able to complete the course is not clear the patient receiving radiation therapy but her symptoms suggested that might of been the case. She complains of dysphagia both to liquids and solids in excess elevation. Barium swallow showed smooth narrowing in the proximal esophagus. The patient is actually scheduled as an outpatient for EGD and possible dilatation. We will plan to perform this while in hospital in order to expedite her care. The patient has been informed of the procedure including risks, benefits and alternatives. She is agreeable to proceed. Constitutional: improved, no complaints Eyes: no complaints ENT: no complaints Respiratory: cough, shortness of breath Cardiovascular: no complaints Gastrointestinal: other (Dysphagia, excess elevation.), No diarrhea, No nausea, No pain, No passing stool Genitourinary: no complaints Musculoskeletal: no complaints Skin: no complaints Neurologic: no complaints Endocrine: no complaints Lymphatic: no complaints Psychological: nl mood/affect, no complaints Immunologic: no complaints Past Medical History 1. Diabetes mellitus type 2 2. Hypertension 3. History of breast cancer status post mastectomy chemo and radiation in 2013 said to be cancer free 4. Chronic knee surgery left knee 5. History of gastritis 6. History of congestive heart failure Past Surgical History Past Surgical Hx: other (Mastectomy) Family History Significant Family History: no pertinent family hx Social History Alcohol Use: none Smoking Status: Never smoker Drug Use: none Exam/Review of Systems Vital Signs Vitals Vital Signs Date Time Temp Pulse Resp B/P Pulse Ox O2 Delivery O2 Flow Rate FiO2 09/06/16 07:59 97.5 75 18 162/70 95 09/05/16 20:07 21 09/05/16 01:36 Nasal Cannula 2.0 Intake and Output 09/05/16 09/05/16 09/06/16 15:00 23:00 07:00 Intake Total 2030 ml 500 ml Output Total 1100 ml 800 ml Balance 930 ml -300 ml Exam Constitutional: alert, frail, oriented, well developed Psych: nl mood/affect, no complaints Head: atraumatic, normocephalic Eyes: EOMI, PERRL, nl conjunctiva, nl lids, nl sclera ENMT: nl external ears & nose, nl lips & teeth, nl nasal mucosa & septum Neck: non-tender, supple Respiratory: crackles/rales (Bilaterally), No labored breathing, No wheezing Cardiovascular: nl pulses, regular rate and rhythm Gastrointestinal: nl liver, spleen, non-tender, soft, No ascites, No hepatomegaly, No mass, No rebound or guarding, No tender Musculoskeletal: nl extremities to inspection Extremities: normal pulses Skin: nl turgor, No rash or lesions Lymph: nl lymph nodes Results Result Diagram: 09/06/16 0810 09/06/16 0810 Results 24 hrs Laboratory Tests Test 09/05/16 12:34 09/05/16 20:01 09/06/16 02:35 09/06/16 07:57 Bedside Glucose 185 243 H 154 72 Test 09/06/16 08:10 White Blood Count 4.7 L Red Blood Count 2.76 L Hemoglobin 8.1 L Hematocrit 25.2 L Mean Corpuscular Volume 91.3 Mean Corpuscular Hemoglobin 29.3 Mean Corpuscular Hemoglobin Concent 32.1 Red Cell Distribution Width 13.9 Platelet Count 129 L Mean Platelet Volume 10.1 Neutrophils % 58.7 Lymphocytes % 28.5 Monocytes % 8.0 Eosinophils % 4.0 Basophils % 0.4 Nucleated Red Blood Cells % 0.0 Neutrophils # 2.8 Lymphocytes # 1.4 Monocytes # 0.4 Eosinophils # 0.2 Basophils # 0.0 Nucleated Red Blood Cells # 0.0 Sodium Level 137 Potassium Level 4.5 Chloride Level 103 Carbon Dioxide Level 28 Anion Gap 11 Blood Urea Nitrogen 25 H Creatinine 1.09 H Glucose Level 63 #L Calcium Level 8.5 Medications Medications Current Medications Amlodipine Besylate (Norvasc) 10 mg DAILY PO Last administered on 09/06/16t 08: 14; Admin Dose 10 MG; Start 09/04/16 at 09:00 Carvedilol (Coreg) 3.125 mg DAILY PO Last administered on 09/06/16 08:15; Admin Dose 3.125 MG; Start 09/04/16 at 09:00 Docusate Sodium (Colace) 100 mg BID PO Last administered on 09/06/16 08:15; Admin Dose 100 MG; Start 09/03/16 at 21:00 Losartan Potassium (Cozaar) 100 mg DAILY PO Last administered on 09/06/16 08: 15; Admin Dose 100 MG; Start 09/04/16 at 09:00 Pantoprazole 40 mg 40 mg DAILY@06 PO Last administered on 09/06/16 05:58; Admin Dose 40 MG; Start 09/04/16 at 06:00 Levofloxacin/ Dextrose (Levaquin 750 Mg/ D5W 150 ml (Pmx)) 150 ml @ 100 mls/hr Q48H IVPB Last administered on 09/05/16 14:01; Admin Dose 100 MLS/HR; Start at 13:30 Acetaminophen (Tylenol Tab) 650 mg Q6H PRN PO PAIN AND OR ELEVATED TEMP; Start 09/03/16 at 13:30 Enoxaparin Sodium (Lovenox) 40 mg DAILY SC Last administered on 09/04/16 09:40 ; Admin Dose 40 MG; Start 09/04/16 at 09:00; Status Future Hold Miscellaneous Information 1 ea NOTE XX ; Start 09/03/16 at 14:00 Glucose (Glutose) 15 gm Q15M PRN PO DECREASED GLUCOSE; Start 09/03/16 at 14:00 Glucose (Glutose) 22.5 gm Q15M PRN PO DECREASED GLUCOSE; Start 09/03/16 at 14: 00 Dextrose (D50w Syringe) 25 ml Q15M PRN IV DECREASED GLUCOSE; Start 09/03/16 at 14:00 Dextrose (D50w Syringe) 50 ml Q15M PRN IV DECREASED GLUCOSE Last administered on 09/04/16 03:39; Admin Dose 50 ML; Start 09/03/16 at 14:00 Glucagon (Glucagen) 1 mg Q15M PRN IM DECREASED GLUCOSE; Start 09/03/16 at 14:00 Glucose (Glutose) 15 gm Q15M PRN BUCCAL DECREASED GLUCOSE; Start 09/03/16 at 14 :00 Ondansetron HCl (Zofran Inj) 4 mg Q6H PRN IV NAUSEA AND/OR VOMITING; Start at 22:00 Gabapentin (Neurontin) 100 mg TID PO Last administered on 09/06/16 08:15; Admin Dose 100 MG; Start 09/05/16 at 13:00 Guaifenesin (Robitussin Liquid Cup) 200 mg Q4H PRN PO COUGH Last administered on 09/05/16 21:44; Admin Dose 200 MG; Start 09/05/16 at 19:00 Insulin Glargine (Lantus) 7 unit DAILY@20 SC ; Start 09/06/16 at 20:00 Hydralazine HCl (Apresoline) 25 mg BID PO ; Start 09/06/16 at 10:30 LUDWIG ATKINSON MD Sep 06, 2016 11:47
[2016-09-06 19:18] VITALS: BP 146/70; RESP 20
[2016-09-06] MEDS: INSULIN GLARGINE [LANtus] 3 ML PEN SC SCH (20:29)
[2016-09-07] VITALS (9 sets, daily range): BP systolic 136–165; BP diastolic 57–72; PULSE 56–66; RESP 18–39
[2016-09-07] MEDS: PANTOPRAZOLE (EC) 40 MG TAB PO SCH (06:07)
[2016-09-07] MEDS: GABAPENTIN 100 MG CAP PO SCH ×3 (07:50→21:14)
[2016-09-07] MEDS: DOCUSATE SODIUM 100 MG CAP PO SCH ×2 (07:50→21:14)
[2016-09-07] MEDS: LOSARTAN 50 MG TAB PO SCH (07:52)
[2016-09-07] MEDS: AMLODIPINE 10 MG TAB PO SCH (07:52)
[2016-09-07] MEDS: Insulin NOVOLOG SS MILD Algorithm (SS with meals and bedtime) SC SCH ×4 (07:53→21:00)
[2016-09-07] MEDS: LEVOFLOXACIN 750MG/D5W (PMX) 150 ML IVPB SCH (12:46)
--- NOTE | 2016-09-07 15:15 | CONS ---
Date/Time of Note Date/Time of Note DATE: 09/07/16 TIME: 15:13 Assessment/Plan Assessment/Plan Additional Assessment/Plan Pneumonia Preserved ejection fraction At least moderate aortic stenosis Hypertension Diabetes -Blood pressure trend has improved on hydralazine. No new cardiac orders at the current time Consultation Date/Type/Reason Admit Date/Time Sep 03, 2016 at 13:30 Initial Consult Date 09/05/16 Type of Consultation: cv 24 HR Interval Summary Free Text/Dictation Patient seen and examined, denies shortness of breath Exam/Review of Systems Vital Signs Vitals Vital Signs Date Time Temp Pulse Resp B/P Pulse Ox O2 Delivery O2 Flow Rate FiO2 09/07/16 07:57 62 09/07/16 07:47 97.3 18 143/66 94 09/05/16 20:07 21 09/05/16 01:36 Nasal Cannula 2.0 Intake and Output 09/06/16 09/06/16 09/07/16 15:00 23:00 07:00 Intake Total 400 ml Output Total 2000 ml Balance -1600 ml Exam No apparent distress Constitutional: alert, oriented Head: normocephalic Respiratory: other (Coarse breath sounds bilaterally, no wheezing) Cardiovascular: other (S1-S2 heard), regular rate and rhythm, systolic murmur Gastrointestinal: bowel sounds, non-tender, soft Extremities: edema (Trace) Results Result Diagram: 09/06/16 0810 09/06/16 0810 Results 24 hrs Laboratory Tests Test 09/06/16 17:34 09/06/16 20:24 09/07/16 02:01 09/07/16 07:49 Bedside Glucose 108 84 83 80 Test 09/07/16 12:26 Bedside Glucose 139 Medications Medications Current Medications Amlodipine Besylate (Norvasc) 10 mg DAILY PO Last administered on 09/07/16 07: 52; Admin Dose 10 MG; Start 09/04/16 at 09:00 Carvedilol (Coreg) 3.125 mg DAILY PO Last administered on 09/07/16 07:51; Admin Dose 3.125 MG; Start 09/04/16 at 09:00 Docusate Sodium (Colace) 100 mg BID PO Last administered on 09/07/16 07:50; Admin Dose 100 MG; Start 09/03/16 at 21:00 Losartan Potassium (Cozaar) 100 mg DAILY PO Last administered on 09/07/16 07: 52; Admin Dose 100 MG; Start 09/04/16 at 09:00 Pantoprazole 40 mg 40 mg DAILY@06 PO Last administered on 09/07/16 06:07; Admin Dose 40 MG; Start 09/04/16 at 06:00 Levofloxacin/ Dextrose (Levaquin 750 Mg/ D5W 150 ml (Pmx)) 150 ml @ 100 mls/hr Q48H IVPB Last administered on 09/07/16 12:46; Admin Dose 100 MLS/HR; Start at 13:30 Acetaminophen (Tylenol Tab) 650 mg Q6H PRN PO PAIN AND OR ELEVATED TEMP; Start 09/03/16 at 13:30 Enoxaparin Sodium (Lovenox) 40 mg DAILY SC Last administered on 09/04/16 09:40 ; Admin Dose 40 MG; Start 09/04/16 at 09:00; Status Future Hold Miscellaneous Information 1 ea NOTE XX ; Start 09/03/16 at 14:00 Glucose (Glutose) 15 gm Q15M PRN PO DECREASED GLUCOSE; Start 09/03/16 at 14:00 Glucose (Glutose) 22.5 gm Q15M PRN PO DECREASED GLUCOSE; Start 09/03/16 at 14: 00 Dextrose (D50w Syringe) 25 ml Q15M PRN IV DECREASED GLUCOSE; Start 09/03/16 at 14:00 Dextrose (D50w Syringe) 50 ml Q15M PRN IV DECREASED GLUCOSE Last administered on 09/04/16 03:39; Admin Dose 50 ML; Start 09/03/16 at 14:00 Glucagon (Glucagen) 1 mg Q15M PRN IM DECREASED GLUCOSE; Start 09/03/16 at 14:00 Glucose (Glutose) 15 gm Q15M PRN BUCCAL DECREASED GLUCOSE; Start 09/03/16 at 14 :00 Ondansetron HCl (Zofran Inj) 4 mg Q6H PRN IV NAUSEA AND/OR VOMITING; Start at 22:00 Gabapentin (Neurontin) 100 mg TID PO Last administered on 09/07/16 07:50; Admin Dose 100 MG; Start 09/05/16 at 13:00 Guaifenesin (Robitussin Liquid Cup) 200 mg Q4H PRN PO COUGH Last administered on 09/05/16 21:44; Admin Dose 200 MG; Start 09/05/16 at 19:00 Insulin Glargine (Lantus) 7 unit DAILY@20 SC Last administered on 09/06/16 20: 29; Admin Dose 7 UNIT; Start 09/06/16 at 20:00 Hydralazine HCl (Apresoline) 25 mg BID PO Last administered on 09/07/16 07:52 ; Admin Dose 25 MG; Start 09/06/16 at 10:30 Joel Coulter DO Sep 07, 2016 15:15
[2016-09-07] MEDS ORDERED: PROPOFOL 20 ML ONE (18:24)
[2016-09-07] MEDS ORDERED: LIDOCAINE 2% (SDV) 5 ML INJ ONE (18:24)
[2016-09-07] MEDS ORDERED: FENTAnyl 50 MCG/ML VIAL ONE (18:24)
[2016-09-07] MEDS: INSULIN GLARGINE [LANtus] 3 ML PEN SC SCH (20:38)
--- NOTE | 2016-09-08 04:39 | GILP ---
DATE OF PROCEDURE: PROCEDURE: Esophagogastroduodenoscopy with biopsies BRIEF HISTORY AND INDICATIONS: The patient is being evaluated for dysphagia and abdominal pain. PREMEDICATION: Monitored anesthesia care by anesthesiologist. SURGEON: Ludiwg Tellez MD INSTRUMENT USED: Olympus panendoscope. TECHNIQUE: After informed consent, with the patient/relatives understanding the procedure, its indic ations, potential risks and complications, including but not limited to: allergic reaction, bleeding , perforation or infection, and after all pertinent questions were answered to the patients satisfac tion, the patient/relatives signed witnessed informed consent. Following this, premedication was administered slowly IV push under careful cardiovascular and respi ratory monitoring with pulse oximetry, automatic blood pressure and security monitor. Once the sedative effect was achieved the patient was place in the left lateral decubitus, the panen doscope was introduced and advanced under visual control. Careful examination of the upper gastrointestinal tract, both on insertion as well as withdrawal of the instrument disclosed the following findings: ESOPHAGUS: There is no significant narrowing in any segment of the esophagus. Particular attention was placed to the proximal cervical esophagus. STOMACH: Upon entrance to the stomach, air was insufflated, the gastric sanchez distended normally. There is erythema and edema of the mucosa of a moderate degree. Biopsies were obtained to rule out H. pylori infection. PYLORUS: The pylorus appears patent and within normal limits, with no evidence of gastric outlet ob struction. DUODENUM: The duodenal mucosa was carefully examined in the duodenal bulb as well as the second por tion of the duodenum and appears unremarkable with no evidence of duodenitis, ulcer or neoplasm. The instrument was then withdrawn, and no additional abnormalities were noted. The patient tolerate d the procedure well and was transfer out of the endoscopy suite awake, and [facility] good [facility] under observation IMPRESSION: 1. No significant esophageal narrowing requiring or benefitting from dilatation. 2. Mild gastritis, rule out Helicobacter pylori infection. Biopsies were obtained. PLAN: Advance diet, PPI therapy. Further recommendation will depend on the patient's clinical cour se. Dictated By: LUDWIG TELLEZ MS/MARÍA Conf#: [id number] DID#: [id number]
[2016-09-08] MEDS: PANTOPRAZOLE (EC) 40 MG TAB PO SCH (06:21)
[2016-09-08 06:29] LABS: ADD SCAN DIFF NO
[2016-09-08 06:40] LABS: BASOPHILS % 0.4 % (0.0-2.0); EOSINOPHILS # 0.1 10^3/ul (0.0-0.5); EOSINOPHILS % 3.1 % (0.0-7.0); HEMATOCRIT 23.8 % (37.0-47.0); HEMOGLOBIN 7.8 g/dl (12.0-16.0); LYMPHOCYTES # 1.7 10^3/ul (0.8-2.9); LYMPHOCYTES % 36.2 % (15.0-51.0); MEAN CORPUSCULAR HEMOGLOBIN 30.4 pg (29.0-33.0); MEAN CORPUSCULAR HGB CONC 32.8 g/dl (32.0-37.0); MEAN CORPUSCULAR VOLUME 92.6 fl (82.0-101.0); MEAN PLATELET VOLUME 9.8 fl (7.4-10.4); MONOCYTE # 0.4 10^3/ul (0.3-0.9); NEUTROPHIL # 2.3 10^3/ul (1.6-7.5); NEUTROPHILS % 50.9 % (39.0-77.0); PLATELET COUNT 146 10^3/UL (140-415); RED BLOOD COUNT 2.57 10^6/ul (4.20-5.40); RED CELL DISTRIBUTION WIDTH 13.9 % (11.5-14.5); WHITE BLOOD COUNT 4.6 10^3/ul (4.8-10.8)
[2016-09-08 07:12] LABS: CALCIUM 8.4 mg/dl (8.4-10.2); CREATININE 1.02 mg/dl (0.44-1.00); POTASSIUM 4.4 mmol/L (3.5-5.1)
--- NOTE | 2016-09-08 07:36 | PN ---
DATE: 09/07/2016 SUBJECTIVE: No acute events overnight. Patient awaiting EGD for later today. OBJECTIVE VITAL SIGNS: Stable. GENERAL: The patient is lying in bed sleeping. No acute distress. HEENT: Pupils equal, round, reactive to light. Extraocular muscles intact. NECK: Supple, no thyromegaly. LUNGS: Slightly decreased breath sounds bilaterally. CARDIOVASCULAR: S1, S2 heard. Positive murmur, but no rubs or gallops. ABDOMEN: Soft, nontender, nondistended. Normal bowel sounds. No rebound or guarding. MUSCULOSKELETAL: There is a right Charcot foot noted externally rotated with positive [place], other [place] no lower extremity edema bilaterally. NEUROLOGIC: No focal deficits. LABORATORY DATA: CBC there is no new CBC or basic metabolic panel from this morning. ASSESSMENT AND PLAN: A 70-year-old female with cough, fevers, chills, sepsis secondary to right-sharon ed pneumonia. 1. Sepsis, again secondary to right-sided pneumonia. Continue current antibiotics. Monitor CBC da valentin. Tylenol p.r.n. pain, fevers. 2. Type 2 diabetes. A1c 7.3. Continue current insulin regimen. 3. Mild pancytopenia. Monitor for now. 4. Monitor aortic stenosis for cardiac murmur. Follow up cardiology recommendations including p.o. hydralazine for now, also on Norvasc and Coreg. 5. Esophageal stenosis, possibly radiation induced from the patient's breast cancer diagnosis from the past, EGD later today. Follow up post-EGD recommendations. 6. Chronic right-sided Charcot foot. May need [place] boot or custom shoes per podiatry recommendatio ns. 7. Subclinical hypothyroidism. Repeat screening thyroid function tests in 4 to 6 weeks. 8. History of breast cancer status post left-sided mastectomy in 2013 with chemotherapy, radiation, presumably at that time. Continue to monitor for now. 11. Tinnitus. Follow up with ENT doctor as outpatient. The patient also having some dizziness sym ptoms for that. MRI was negative. Dictated By: CHARITY DAVIS Conf#: [id number] DID#: [id number]
[2016-09-08 07:39] VITALS: BP 148/67; RESP 18
[2016-09-08] MEDS: Insulin NOVOLOG SS MILD Algorithm (SS with meals and bedtime) SC SCH ×4 (07:53→21:06)
[2016-09-08] MEDS: GABAPENTIN 100 MG CAP PO SCH ×3 (08:37→20:58)
[2016-09-08] MEDS: DOCUSATE SODIUM 100 MG CAP PO SCH ×2 (08:37→20:59)
[2016-09-08] MEDS: AMLODIPINE 10 MG TAB PO SCH (08:37)
[2016-09-08] MEDS: LOSARTAN 50 MG TAB PO SCH (08:37)
--- NOTE | 2016-09-08 11:21 | PN ---
Date/Time of Note Date/Time of Note DATE: 09/08/16 TIME: :17 Assessment/Plan VTE Prophylaxis VTE Prophylaxis Intervention: LMWH Lines/Catheters IV [facility] Type [facility] Peripheral IV Urinary Cath still in place: No Assessment/Plan Chief Complaint/Hosp Course ASSESSMENT AND PLAN: 70-year-old female with cough, fevers, chills, sepsis secondary to right-sided pneumonia. 1. Sepsis, again secondary to right-sided pneumonia. Continue current antibiotics. Monitor CBC daily. Tylenol p.r.n. pain, fevers. 2. Type 2 diabetes. A1c 7.3. Continue current insulin regimen. 3. Mild pancytopenia. Monitor for now. 4. Monitor aortic stenosis for cardiac murmur. Follow up cardiology recommendations including p.o. hydralazine for now, also on Norvasc and Coreg. 5. Esophageal stenosis, possibly radiation induced from the patient's breast cancer diagnosis from the past,- had EGD yesterday. - Follow up post-EGD recommendations, modified diet. 6. Chronic right-sided Charcot foot. May need [place] boot or custom shoes per podiatry recommendations. 7. Subclinical hypothyroidism. Repeat screening thyroid function tests in 4 to 6 weeks. 8. History of breast cancer status post left-sided mastectomy in 2013 with chemotherapy, radiation, presumably at that time. Continue to monitor for now. 11. Tinnitus. Follow up with ENT doctor as outpatient. The patient also having some dizziness symptoms for that. MRI was negative. Problems: Subjective 24 Hr Interval Summary Free Text/Dictation Pt had EGD yesterday. Tolerating modified diet now. Exam/Review of Systems Vital Signs Vitals Vital Signs Date Time Temp Pulse Resp B/P Pulse Ox O2 Delivery O2 Flow Rate FiO2 09/08/16 07:39 97.8 63 18 148/67 98 09/07/16 19:13 Nasal Cannula 09/05/16 20:07 21 09/05/16 01:36 2.0 Intake and Output 09/07/16 09/07/16 09/08/16 15:00 23:00 07:00 Intake Total 150 ml 670 ml 500 ml Output Total 1000 ml 1000 ml Balance 150 ml -330 ml -500 ml Exam GENERAL: The patient is lying in bed sleeping. No acute distress. HEENT: Pupils equal, round, reactive to light. Extraocular muscles intact. NECK: Supple, no thyromegaly. LUNGS: Slightly decreased breath sounds bilaterally. CARDIOVASCULAR: S1, S2 heard. Positive murmur, but no rubs or gallops. ABDOMEN: Soft, nontender, nondistended. Normal bowel sounds. No rebound or guarding. MUSCULOSKELETAL: There is a right Charcot foot noted externally rotated with positive [place], otherwise no lower extremity edema bilaterally. NEUROLOGIC: No focal deficits. Results Result Diagram: 09/08/16 0530 09/08/16 0530 Results 24 hrs Laboratory Tests Test 09/07/16 12:26 09/07/16 17:54 09/07/16 20:30 09/08/16 05:30 Bedside Glucose 139 110 123 White Blood Count 4.6 L Red Blood Count 2.57 L Hemoglobin 7.8 L Hematocrit 23.8 L Mean Corpuscular Volume 92.6 Mean Corpuscular Hemoglobin 30.4 Mean Corpuscular Hemoglobin Concent 32.8 Red Cell Distribution Width 13.9 Platelet Count 146 Mean Platelet Volume 9.8 Neutrophils % 50.9 Lymphocytes % 36.2 Monocytes % 9.0 Eosinophils % 3.1 Basophils % 0.4 Nucleated Red Blood Cells % 0.0 Neutrophils # 2.3 Lymphocytes # 1.7 Monocytes # 0.4 Eosinophils # 0.1 Basophils # 0.0 Nucleated Red Blood Cells # 0.0 Sodium Level 138 Potassium Level 4.4 Chloride Level 107 Carbon Dioxide Level 27 Anion Gap 8 Blood Urea Nitrogen 24 H Creatinine 1.02 H Glucose Level 78 Calcium Level 8.4 Test 09/08/16 07:52 Bedside Glucose 71 Medications Medications Current Medications Amlodipine Besylate (Norvasc) 10 mg DAILY PO Last administered on 09/08/16 08: 37; Admin Dose 10 MG; Start 09/04/16 at 09:00 Carvedilol (Coreg) 3.125 mg DAILY PO Last administered on 09/08/16 08:37; Admin Dose 3.125 MG; Start 09/04/16 at 09:00 Docusate Sodium (Colace) 100 mg BID PO Last administered on 09/08/16 08:37; Admin Dose 100 MG; Start 09/03/16 at 21:00 Losartan Potassium (Cozaar) 100 mg DAILY PO Last administered on 09/08/16 08: 37; Admin Dose 100 MG; Start 09/04/16 at 09:00 Pantoprazole 40 mg 40 mg DAILY@06 PO Last administered on 09/08/16 06:21; Admin Dose 40 MG; Start 09/04/16 at 06:00 Levofloxacin/ Dextrose (Levaquin 750 Mg/ D5W 150 ml (Pmx)) 150 ml @ 100 mls/hr Q48H IVPB Last administered on 09/07/16 12:46; Admin Dose 100 MLS/HR; Start at 13:30 Acetaminophen (Tylenol Tab) 650 mg Q6H PRN PO PAIN AND OR ELEVATED TEMP; Start 09/03/16 at 13:30 Enoxaparin Sodium (Lovenox) 40 mg DAILY SC Last administered on 09/04/16 09:40 ; Admin Dose 40 MG; Start 09/04/16 at 09:00; Status Future Hold Miscellaneous Information 1 ea NOTE XX ; Start 09/03/16 at 14:00 Glucose (Glutose) 15 gm Q15M PRN PO DECREASED GLUCOSE; Start 09/03/16 at 14:00 Glucose (Glutose) 22.5 gm Q15M PRN PO DECREASED GLUCOSE; Start 09/03/16 at 14: 00 Dextrose (D50w Syringe) 25 ml Q15M PRN IV DECREASED GLUCOSE; Start 09/03/16 at 14:00 Dextrose (D50w Syringe) 50 ml Q15M PRN IV DECREASED GLUCOSE Last administered on 09/04/16 03:39; Admin Dose 50 ML; Start 09/03/16 at 14:00 Glucagon (Glucagen) 1 mg Q15M PRN IM DECREASED GLUCOSE; Start 09/03/16 at 14:00 Glucose (Glutose) 15 gm Q15M PRN BUCCAL DECREASED GLUCOSE; Start 09/03/16 at 14 :00 Ondansetron HCl (Zofran Inj) 4 mg Q6H PRN IV NAUSEA AND/OR VOMITING; Start at 22:00 Gabapentin (Neurontin) 100 mg TID PO Last administered on 09/08/16 08:37; Admin Dose 100 MG; Start 09/05/16 at 13:00 Guaifenesin (Robitussin Liquid Cup) 200 mg Q4H PRN PO COUGH Last administered on 09/05/16 21:44; Admin Dose 200 MG; Start 09/05/16 at 19:00 Insulin Glargine (Lantus) 7 unit DAILY@20 SC Last administered on 09/07/16 20: 38; Admin Dose 7 UNIT; Start 09/06/16 at 20:00 Hydralazine HCl (Apresoline) 25 mg BID PO Last administered on 09/08/16 08:37 ; Admin Dose 25 MG; Start 09/06/16 at 10:30 CHARITY JIMENEZ Sep 08, 2016 11:21
[2016-09-08 14:20] LABS: HEMATOCRIT 24.5 % (37.0-47.0); HEMOGLOBIN 7.9 g/dl (12.0-16.0)
--- NOTE | 2016-09-08 15:02 | CONS ---
Date/Time of Note Date/Time of Note DATE: 09/08/16 TIME: 15:00 Assessment/Plan Assessment/Plan Additional Assessment/Plan Pneumonia Preserved ejection fraction At least moderate aortic stenosis Hypertension Diabetes -Blood pressure trend remains stable on current antihypertensive medication regimen. No new cardiac orders at the current time Consultation Date/Type/Reason Admit Date/Time Sep 03, 2016 at 13:30 Initial Consult Date 09/05/16 Type of Consultation: cv 24 HR Interval Summary Free Text/Dictation Denies shortness of breath, still complains of mild cough Exam/Review of Systems Vital Signs Vitals Vital Signs Date Time Temp Pulse Resp B/P Pulse Ox O2 Delivery O2 Flow Rate FiO2 09/08/16 07:39 97.8 63 18 148/67 98 09/07/16 19:13 Nasal Cannula 09/05/16 20:07 21 09/05/16 01:36 2.0 Intake and Output 09/07/16 09/07/16 09/08/16 14:59 22:59 06:59 Intake Total 150 ml 670 ml 500 ml Output Total 1000 ml 1000 ml Balance 150 ml -330 ml -500 ml Exam No apparent distress, no dyspnea with speaking Constitutional: alert, oriented Head: normocephalic Respiratory: other (Coarse breath sounds bilaterally, no wheezing) Cardiovascular: other (S1-S2 heard), regular rate and rhythm Gastrointestinal: bowel sounds, non-tender, soft Extremities: edema Results Result Diagram: 09/08/16 1410 09/08/16 0530 Results 24 hrs Laboratory Tests Test 09/07/16 17:54 09/07/16 20:30 09/08/16 05:30 09/08/16 07:52 Bedside Glucose 110 123 71 White Blood Count 4.6 L Red Blood Count 2.57 L Hemoglobin 7.8 L Hematocrit 23.8 L Mean Corpuscular Volume 92.6 Mean Corpuscular Hemoglobin 30.4 Mean Corpuscular Hemoglobin Concent 32.8 Red Cell Distribution Width 13.9 Platelet Count 146 Mean Platelet Volume 9.8 Neutrophils % 50.9 Lymphocytes % 36.2 Monocytes % 9.0 Eosinophils % 3.1 Basophils % 0.4 Nucleated Red Blood Cells % 0.0 Neutrophils # 2.3 Lymphocytes # 1.7 Monocytes # 0.4 Eosinophils # 0.1 Basophils # 0.0 Nucleated Red Blood Cells # 0.0 Sodium Level 138 Potassium Level 4.4 Chloride Level 107 Carbon Dioxide Level 27 Anion Gap 8 Blood Urea Nitrogen 24 H Creatinine 1.02 H Glucose Level 78 Calcium Level 8.4 Test 09/08/16 12:12 09/08/16 14:10 Bedside Glucose 127 Hemoglobin 7.9 L Hematocrit 24.5 L Medications Medications Current Medications Amlodipine Besylate (Norvasc) 10 mg DAILY PO Last administered on 09/08/16 08: 37; Admin Dose 10 MG; Start 09/04/16 at 09:00 Carvedilol (Coreg) 3.125 mg DAILY PO Last administered on 09/08/16 08:37; Admin Dose 3.125 MG; Start 09/04/16 at 09:00 Docusate Sodium (Colace) 100 mg BID PO Last administered on 09/08/16 08:37; Admin Dose 100 MG; Start 09/03/16 at 21:00 Losartan Potassium (Cozaar) 100 mg DAILY PO Last administered on 09/08/16 08: 37; Admin Dose 100 MG; Start 09/04/16 at 09:00 Pantoprazole 40 mg 40 mg DAILY@06 PO Last administered on 09/08/16 06:21; Admin Dose 40 MG; Start 09/04/16 at 06:00 Levofloxacin/ Dextrose (Levaquin 750 Mg/ D5W 150 ml (Pmx)) 150 ml @ 100 mls/hr Q48H IVPB Last administered on 09/07/16 12:46; Admin Dose 100 MLS/HR; Start at 13:30 Acetaminophen (Tylenol Tab) 650 mg Q6H PRN PO PAIN AND OR ELEVATED TEMP; Start 09/03/16 at 13:30 Enoxaparin Sodium (Lovenox) 40 mg DAILY SC Last administered on 09/04/16 09:40 ; Admin Dose 40 MG; Start 09/04/16 at 09:00; Status Future Hold Miscellaneous Information 1 ea NOTE XX ; Start 09/03/16 at 14:00 Glucose (Glutose) 15 gm Q15M PRN PO DECREASED GLUCOSE; Start 09/03/16 at 14:00 Glucose (Glutose) 22.5 gm Q15M PRN PO DECREASED GLUCOSE; Start 09/03/16 at 14: 00 Dextrose (D50w Syringe) 25 ml Q15M PRN IV DECREASED GLUCOSE; Start 09/03/16 at 14:00 Dextrose (D50w Syringe) 50 ml Q15M PRN IV DECREASED GLUCOSE Last administered on 09/04/16 03:39; Admin Dose 50 ML; Start 09/03/16 at 14:00 Glucagon (Glucagen) 1 mg Q15M PRN IM DECREASED GLUCOSE; Start 09/03/16 at 14:00 Glucose (Glutose) 15 gm Q15M PRN BUCCAL DECREASED GLUCOSE; Start 09/03/16 at 14 :00 Ondansetron HCl (Zofran Inj) 4 mg Q6H PRN IV NAUSEA AND/OR VOMITING; Start at 22:00 Gabapentin (Neurontin) 100 mg TID PO Last administered on 09/08/16 12:23; Admin Dose 100 MG; Start 09/05/16 at 13:00 Guaifenesin (Robitussin Liquid Cup) 200 mg Q4H PRN PO COUGH Last administered on 09/05/16 21:44; Admin Dose 200 MG; Start 09/05/16 at 19:00 Insulin Glargine (Lantus) 7 unit DAILY@20 SC Last administered on 09/07/16 20: 38; Admin Dose 7 UNIT; Start 09/06/16 at 20:00 Hydralazine HCl (Apresoline) 25 mg BID PO Last administered on 09/08/16 08:37 ; Admin Dose 25 MG; Start 09/06/16 at 10:30 Joel Coulter DO Sep 08, 2016 15:02
[2016-09-08] MEDS ORDERED: SOD CHLORIDE 0.9% 500 ML IV ONE (17:30)
--- NOTE | 2016-09-08 18:58 | PN ---
Date/Time of Note Date/Time of Note DATE: 09/08/16 TIME: 18:55 Assessment/Plan VTE Prophylaxis VTE Prophylaxis Intervention: SCD's Lines/Catheters [facility] Peripheral IV Urinary Cath still in place: No Assessment/Plan Assessment/Plan Assessment: Dysphagia/probable history of radiation Pneumonitis/improving History of breast cancer postmastectomy chemotherapy and complete course 2013 Diabetes mellitus type 2 Hypertension History of congestive heart failure Plan: Continue dysphagia diet followed with frequent gulps of water Subjective 24 Hr Interval Summary Free Text/Dictation Course reviewed with nursing staff Patient continues to complain of dysphagia however when she drinks water she is able to swallow properly She was explained that there is no significant narrowing in her esophagus that will benefit from dilatation She was advised to continue to eat and anna her food with frequent drinks of water to avoid the potential of impaction She was scheduled to receive 1 unit of packed red cells for hemoglobin of 7.8 g range From the GI point of view she would be safe for outpatient follow-up after transfusion Exam/Review of Systems Vital Signs Vitals Vital Signs Date Time Temp Pulse Resp B/P Pulse Ox O2 Delivery O2 Flow Rate FiO2 09/08/16 16:22 21 09/08/16 07:39 97.8 63 18 148/67 09/07/16 19:13 Nasal Cannula 09/05/16 20:07 21 09/05/16 01:36 2.0 Intake and Output 09/07/16 09/07/16 09/08/16 15:00 23:00 07:00 Intake Total 150 ml 670 ml 500 ml Output Total 1000 ml 1000 ml Balance 150 ml -330 ml -500 ml Exam Constitutional: alert, frail, oriented, well developed Psych: nl mood/affect, no complaints Head: atraumatic, normocephalic Eyes: EOMI, PERRL, nl conjunctiva, nl lids, nl sclera ENMT: nl external ears & nose, nl lips & teeth, nl nasal mucosa & septum Neck: non-tender, supple Respiratory: crackles/rales (Bilaterally), No labored breathing, No wheezing Cardiovascular: nl pulses, regular rate and rhythm Gastrointestinal: nl liver, spleen, non-tender, soft, No ascites, No hepatomegaly, No mass, No rebound or guarding, No tender Musculoskeletal: nl extremities to inspection Extremities: normal pulses Skin: nl turgor, No rash or lesions Lymph: nl lymph nodes Results Result Diagram: 09/08/16 1410 09/08/16 0530 Results 24 hrs Laboratory Tests Test 09/07/16 20:30 09/08/16 05:30 09/08/16 07:52 09/08/16 12:12 Bedside Glucose 123 71 127 White Blood Count 4.6 L Red Blood Count 2.57 L Hemoglobin 7.8 L Hematocrit 23.8 L Mean Corpuscular Volume 92.6 Mean Corpuscular Hemoglobin 30.4 Mean Corpuscular Hemoglobin Concent 32.8 Red Cell Distribution Width 13.9 Platelet Count 146 Mean Platelet Volume 9.8 Neutrophils % 50.9 Lymphocytes % 36.2 Monocytes % 9.0 Eosinophils % 3.1 Basophils % 0.4 Nucleated Red Blood Cells % 0.0 Neutrophils # 2.3 Lymphocytes # 1.7 Monocytes # 0.4 Eosinophils # 0.1 Basophils # 0.0 Nucleated Red Blood Cells # 0.0 Sodium Level 138 Potassium Level 4.4 Chloride Level 107 Carbon Dioxide Level 27 Anion Gap 8 Blood Urea Nitrogen 24 H Creatinine 1.02 H Glucose Level 78 Calcium Level 8.4 Test 09/08/16 14:10 09/08/16 17:22 Hemoglobin 7.9 L Hematocrit 24.5 L Bedside Glucose 145 Medications Medications Current Medications Amlodipine Besylate (Norvasc) 10 mg DAILY PO Last administered on 09/08/16 08: 37; Admin Dose 10 MG; Start 09/04/16 at 09:00 Carvedilol (Coreg) 3.125 mg DAILY PO Last administered on 09/08/16 08:37; Admin Dose 3.125 MG; Start 09/04/16 at 09:00 Docusate Sodium (Colace) 100 mg BID PO Last administered on 09/08/16 08:37; Admin Dose 100 MG; Start 09/03/16 at 21:00 Losartan Potassium (Cozaar) 100 mg DAILY PO Last administered on 09/08/16 08: 37; Admin Dose 100 MG; Start 09/04/16 at 09:00 Pantoprazole 40 mg 40 mg DAILY@06 PO Last administered on 09/08/16 06:21; Admin Dose 40 MG; Start 09/04/16 at 06:00 Levofloxacin/ Dextrose (Levaquin 750 Mg/ D5W 150 ml (Pmx)) 150 ml @ 100 mls/hr Q48H IVPB Last administered on 09/07/16 12:46; Admin Dose 100 MLS/HR; Start at 13:30 Acetaminophen (Tylenol Tab) 650 mg Q6H PRN PO PAIN AND OR ELEVATED TEMP; Start 09/03/16 at 13:30 Enoxaparin Sodium (Lovenox) 40 mg DAILY SC Last administered on 09/04/16 09:40 ; Admin Dose 40 MG; Start 09/04/16 at 09:00; Status Future Hold Miscellaneous Information 1 ea NOTE XX ; Start 09/03/16 at 14:00 Glucose (Glutose) 15 gm Q15M PRN PO DECREASED GLUCOSE; Start 09/03/16 at 14:00 Glucose (Glutose) 22.5 gm Q15M PRN PO DECREASED GLUCOSE; Start 09/03/16 at 14: 00 Dextrose (D50w Syringe) 25 ml Q15M PRN IV DECREASED GLUCOSE; Start 09/03/16 at 14:00 Dextrose (D50w Syringe) 50 ml Q15M PRN IV DECREASED GLUCOSE Last administered on 09/04/16 03:39; Admin Dose 50 ML; Start 09/03/16 at 14:00 Glucagon (Glucagen) 1 mg Q15M PRN IM DECREASED GLUCOSE; Start 09/03/16 at 14:00 Glucose (Glutose) 15 gm Q15M PRN BUCCAL DECREASED GLUCOSE; Start 09/03/16 at 14 :00 Ondansetron HCl (Zofran Inj) 4 mg Q6H PRN IV NAUSEA AND/OR VOMITING; Start at 22:00 Gabapentin (Neurontin) 100 mg TID PO Last administered on 09/08/16 12:23; Admin Dose 100 MG; Start 09/05/16 at 13:00 Guaifenesin (Robitussin Liquid Cup) 200 mg Q4H PRN PO COUGH Last administered on 09/05/16 21:44; Admin Dose 200 MG; Start 09/05/16 at 19:00 Insulin Glargine (Lantus) 7 unit DAILY@20 SC Last administered on 09/07/16 20: 38; Admin Dose 7 UNIT; Start 09/06/16 at 20:00 Hydralazine HCl (Apresoline) 25 mg BID PO Last administered on 09/08/16 08:37 ; Admin Dose 25 MG; Start 09/06/16 at 10:30 LUDWIG ATKINSON MD Sep 08, 2016 18:58
[2016-09-08 19:42] VITALS: BP 179/80; RESP 18
[2016-09-08] MEDS: INSULIN GLARGINE [LANtus] 3 ML PEN SC SCH (21:05)
[2016-09-09] MEDS: GUAIFENESIN 20 MG/ML 5ML CUP PO PRN (02:25)
[2016-09-09] MEDS: ALBUTEROL 0.083% (NEB) 2.5 MG/3 ML AMP HHN PRN (02:44)
[2016-09-09] MEDS: PANTOPRAZOLE (EC) 40 MG TAB PO SCH (05:37)
[2016-09-09 06:03] LABS: ADD SCAN DIFF NO
[2016-09-09 06:15] LABS: BASOPHILS % 0.6 % (0.0-2.0); EOSINOPHILS # 0.2 10^3/ul (0.0-0.5); EOSINOPHILS % 2.8 % (0.0-7.0); HEMATOCRIT 27.3 % (37.0-47.0); HEMOGLOBIN 8.8 g/dl (12.0-16.0); LYMPHOCYTES # 1.7 10^3/ul (0.8-2.9); MEAN CORPUSCULAR HEMOGLOBIN 29.4 pg (29.0-33.0); MEAN CORPUSCULAR HGB CONC 32.2 g/dl (32.0-37.0); MEAN CORPUSCULAR VOLUME 91.3 fl (82.0-101.0); MEAN PLATELET VOLUME 9.7 fl (7.4-10.4); MONOCYTE # 0.5 10^3/ul (0.3-0.9); MONOCYTES % 9.6 % (0.0-11.0); NEUTROPHIL # 2.9 10^3/ul (1.6-7.5); NEUTROPHILS % 54.6 % (39.0-77.0); PLATELET COUNT 145 10^3/UL (140-415); RED BLOOD COUNT 2.99 10^6/ul (4.20-5.40); RED CELL DISTRIBUTION WIDTH 13.9 % (11.5-14.5); WHITE BLOOD COUNT 5.3 10^3/ul (4.8-10.8)
[2016-09-09 06:43] LABS: CREATININE 0.94 mg/dl (0.44-1.00); POTASSIUM 4.3 mmol/L (3.5-5.1)
[2016-09-09 07:55] VITALS: BP 150/72; RESP 18
[2016-09-09] MEDS: Insulin NOVOLOG SS MILD Algorithm (SS with meals and bedtime) SC SCH ×2 (08:00→12:22)
[2016-09-09] MEDS: DOCUSATE SODIUM 100 MG CAP PO SCH (08:44)
[2016-09-09] MEDS: AMLODIPINE 10 MG TAB PO SCH (08:45)
[2016-09-09] MEDS: GABAPENTIN 100 MG CAP PO SCH ×2 (08:46→12:19)
[2016-09-09] MEDS: LOSARTAN 50 MG TAB PO SCH (08:46)
--- NOTE | 2016-09-09 11:11 | PDOCDIS ---
Discharge Instructions CONDITION Patient Condition: Stable HOME CARE INSTRUCTIONS: Diet Instructions: Special Diet: dysphagia diet ACTIVITY: Activity Restrictions: Slowly Increase Activity Avoid heavy lifting Do not operate Machinery Do not operate Power Tool FOLLOW UP/APPOINTMENTS Appointments Please see your doctor in the clinic in 1 week, take your medications as prescribed, and take great care in your diet to avoid choking or aspiration,. CHARITY JIMENEZ Sep 09, 2016 11:11
[2016-09-09] MEDS ORDERED: HYDR-3671 PO (11:13)
[2016-09-09] MEDS ORDERED: GUAI-637 PO (11:13)
[2016-09-09] MEDS ORDERED: LEVO500T72 PO (11:13)
--- NOTE | 2016-09-09 11:47 | CONS ---
Date/Time of Note Date/Time of Note DATE: 09/09/16 TIME: 11:44 Assessment/Plan Assessment/Plan Additional Assessment/Plan Pneumonia Preserved ejection fraction At least moderate aortic stenosis Hypertension Diabetes -Blood pressure on the higher end this morning. Would change Norvasc and losartan to twice daily dosing. If blood pressure remains elevated, would consider increasing hydralazine. Consultation Date/Type/Reason Admit Date/Time Sep 03, 2016 at 13:30 Initial Consult Date 09/05/16 Type of Consultation: cv 24 HR Interval Summary Free Text/Dictation Denies shortness of breath, still complaining of mild cough, denies chest pain Exam/Review of Systems Vital Signs Vitals Vital Signs Date Time Temp Pulse Resp B/P Pulse Ox O2 Delivery O2 Flow Rate FiO2 09/09/16 07:55 97.3 18 150/72 96 09/09/16 02:53 69 21 09/07/16 19:13 Nasal Cannula Intake and Output 09/08/16 09/08/16 09/09/16 15:00 23:00 07:00 Intake Total 1080 ml 790 ml Output Total 1600 ml Balance -520 ml 790 ml Exam No apparent distress Constitutional: alert, oriented Head: normocephalic Respiratory: other (Coarse breath sounds bilaterally, no wheezing) Cardiovascular: other (S1-S2 heard), regular rate and rhythm, systolic murmur Gastrointestinal: bowel sounds, non-tender, soft Extremities: edema Results Result Diagram: 09/09/16 0520 09/09/16 0520 Results 24 hrs Laboratory Tests Test 09/08/16 12:12 09/08/16 14:10 09/08/16 17:22 09/08/16 21:02 Bedside Glucose 127 145 202 Hemoglobin 7.9 L Hematocrit 24.5 L Test 09/09/16 02:18 09/09/16 05:20 09/09/16 06:44 09/09/16 08:05 Bedside Glucose 87 104 White Blood Count 5.3 Red Blood Count 2.99 L Hemoglobin 8.8 L Hematocrit 27.3 L Mean Corpuscular Volume 91.3 Mean Corpuscular Hemoglobin 29.4 Mean Corpuscular Hemoglobin Concent 32.2 Red Cell Distribution Width 13.9 Platelet Count 145 Mean Platelet Volume 9.7 Neutrophils % 54.6 Lymphocytes % 32.0 Monocytes % 9.6 Eosinophils % 2.8 Basophils % 0.6 Nucleated Red Blood Cells % 0.0 Neutrophils # 2.9 Lymphocytes # 1.7 Monocytes # 0.5 Eosinophils # 0.2 Basophils # 0.0 Nucleated Red Blood Cells # 0.0 Sodium Level 141 Potassium Level 4.3 Chloride Level 108 Carbon Dioxide Level 26 Anion Gap 11 Blood Urea Nitrogen 20 Creatinine 0.94 Glucose Level 114 Calcium Level 9.0 Lab Scanned Report BLOOD TRANSFUSION Medications Medications Current Medications Amlodipine Besylate (Norvasc) 10 mg DAILY PO Last administered on 09/09/16 08: 45; Admin Dose 10 MG; Start 09/04/16 at 09:00 Carvedilol (Coreg) 3.125 mg DAILY PO Last administered on 09/09/16 08:46; Admin Dose 3.125 MG; Start 09/04/16 at 09:00 Docusate Sodium (Colace) 100 mg BID PO Last administered on 09/09/16 08:44; Admin Dose 100 MG; Start 09/03/16 at 21:00 Losartan Potassium (Cozaar) 100 mg DAILY PO Last administered on 09/09/16 08: 46; Admin Dose 100 MG; Start 09/04/16 at 09:00 Pantoprazole 40 mg 40 mg DAILY@06 PO Last administered on 09/09/16 05:37; Admin Dose 40 MG; Start 09/04/16 at 06:00 Levofloxacin/ Dextrose (Levaquin 750 Mg/ D5W 150 ml (Pmx)) 150 ml @ 100 mls/hr Q48H IVPB Last administered on 09/07/16 12:46; Admin Dose 100 MLS/HR; Start at 13:30 Acetaminophen (Tylenol Tab) 650 mg Q6H PRN PO PAIN AND OR ELEVATED TEMP; Start 09/03/16 at 13:30 Enoxaparin Sodium (Lovenox) 40 mg DAILY SC Last administered on 09/04/16 09:40 ; Admin Dose 40 MG; Start 09/04/16 at 09:00; Status Future Hold Miscellaneous Information 1 ea NOTE XX ; Start 09/03/16 at 14:00 Glucose (Glutose) 15 gm Q15M PRN PO DECREASED GLUCOSE; Start 09/03/16 at 14:00 Glucose (Glutose) 22.5 gm Q15M PRN PO DECREASED GLUCOSE; Start 09/03/16 at 14: 00 Dextrose (D50w Syringe) 25 ml Q15M PRN IV DECREASED GLUCOSE; Start 09/03/16 at 14:00 Dextrose (D50w Syringe) 50 ml Q15M PRN IV DECREASED GLUCOSE Last administered on 09/04/16 03:39; Admin Dose 50 ML; Start 09/03/16 at 14:00 Glucagon (Glucagen) 1 mg Q15M PRN IM DECREASED GLUCOSE; Start 09/03/16 at 14:00 Glucose (Glutose) 15 gm Q15M PRN BUCCAL DECREASED GLUCOSE; Start 09/03/16 at 14 :00 Ondansetron HCl (Zofran Inj) 4 mg Q6H PRN IV NAUSEA AND/OR VOMITING; Start at 22:00 Gabapentin (Neurontin) 100 mg TID PO Last administered on 09/09/16 08:46; Admin Dose 100 MG; Start 09/05/16 at 13:00 Guaifenesin (Robitussin Liquid Cup) 200 mg Q4H PRN PO COUGH Last administered on 09/09/16 02:25; Admin Dose 200 MG; Start 09/05/16 at 19:00 Insulin Glargine (Lantus) 7 unit DAILY@20 SC Last administered on 09/08/16 21: 05; Admin Dose 7 UNIT; Start 09/06/16 at 20:00 Hydralazine HCl (Apresoline) 25 mg BID PO Last administered on 09/09/16 08:45 ; Admin Dose 25 MG; Start 09/06/16 at 10:30 Joel Coulter DO Sep 09, 2016 11:47
[2016-09-09] MEDS: LEVOFLOXACIN 750MG/D5W (PMX) 150 ML IVPB SCH (12:53)
--- NOTE | 2016-09-09 15:11 | PN ---
Date/Time of Note Date/Time of Note DATE: 09/09/16 TIME: 15:06 Assessment/Plan VTE Prophylaxis VTE Prophylaxis Intervention: SCD's Lines/Catheters IV Catheter Type (from [facility] Urinary Cath still in place: No Assessment/Plan Assessment/Plan Assessment/Plan Assessment: Dysphagia/probable history of radiation Pneumonitis/improving History of breast cancer postmastectomy chemotherapy and complete course 2013 Diabetes mellitus type 2 Hypertension History of congestive heart failure Plan: Continue dysphagia diet followed with frequent gulps of water Stable for outpatient and management Subjective 24 Hr Interval Summary Free Text/Dictation * Course reviewed with RN * Patient seen and examined * EGD No significant esophageal narrowing requiring or benefitting from dilatation. Mild gastritis, rule out Helicobacter pylori infection. Biopsies were obtained. * Biopsy Gastric antral and body, biopsies: -- Gastric antral type mucosa with minimal superficial chronic gastritis. -- A Giemsa stain with an appropriate control is negative for Helicobacter pylori organisms. -- No dysplasia or intestinal metaplasia is identified. Exam/Review of Systems Vital Signs Vitals Vital Signs Date Time Temp Pulse Resp B/P Pulse Ox O2 Delivery O2 Flow Rate FiO2 09/09/16 07:55 97.3 18 150/72 96 09/09/16 02:53 69 21 09/07/16 19:13 Nasal Cannula Intake and Output 09/08/16 09/08/16 09/09/16 15:00 23:00 07:00 Intake Total 1080 ml 790 ml Output Total 1600 ml Balance -520 ml 790 ml Exam Constitutional: alert, frail Head: atraumatic, normocephalic Neck: non-tender, supple Respiratory: clear to auscultation, normal air movement Cardiovascular: nl pulses, regular rate and rhythm Gastrointestinal: nl liver, spleen, non-tender, soft Musculoskeletal: nl extremities to inspection, nl gait and stance Extremities: normal pulses Neurological: nl speech, nl strength Skin: nl turgor, No rash or lesions Results Result Diagram: 09/09/16 0520 09/09/16 0520 Results 24 hrs Laboratory Tests Test 09/08/16 17:22 09/08/16 21:02 09/09/16 02:18 09/09/16 05:20 Bedside Glucose 145 202 87 White Blood Count 5.3 Red Blood Count 2.99 L Hemoglobin 8.8 L Hematocrit 27.3 L Mean Corpuscular Volume 91.3 Mean Corpuscular Hemoglobin 29.4 Mean Corpuscular Hemoglobin Concent 32.2 Red Cell Distribution Width 13.9 Platelet Count 145 Mean Platelet Volume 9.7 Neutrophils % 54.6 Lymphocytes % 32.0 Monocytes % 9.6 Eosinophils % 2.8 Basophils % 0.6 Nucleated Red Blood Cells % 0.0 Neutrophils # 2.9 Lymphocytes # 1.7 Monocytes # 0.5 Eosinophils # 0.2 Basophils # 0.0 Nucleated Red Blood Cells # 0.0 Sodium Level 141 Potassium Level 4.3 Chloride Level 108 Carbon Dioxide Level 26 Anion Gap 11 Blood Urea Nitrogen 20 Creatinine 0.94 Glucose Level 114 Calcium Level 9.0 Test 09/09/16 06:44 09/09/16 08:05 09/09/16 12:16 Lab Scanned Report BLOOD TRANSFUSION Bedside Glucose 104 183 Medications Medications Current Medications Carvedilol (Coreg) 3.125 mg DAILY PO Last administered on 09/09/16 08:46; Admin Dose 3.125 MG; Start 09/04/16 at 09:00 Docusate Sodium (Colace) 100 mg BID PO Last administered on 09/09/16 08:44; Admin Dose 100 MG; Start 09/03/16 at 21:00 Pantoprazole 40 mg 40 mg DAILY@06 PO Last administered on 09/09/16 05:37; Admin Dose 40 MG; Start 09/04/16 at 06:00 Levofloxacin/ Dextrose (Levaquin 750 Mg/ D5W 150 ml (Pmx)) 150 ml @ 100 mls/hr Q48H IVPB Last administered on 09/09/16 12:53; Admin Dose 100 MLS/HR; Start at 13:30 Acetaminophen (Tylenol Tab) 650 mg Q6H PRN PO PAIN AND OR ELEVATED TEMP; Start 09/03/16 at 13:30 Enoxaparin Sodium (Lovenox) 40 mg DAILY SC Last administered on 09/04/16 09:40 ; Admin Dose 40 MG; Start 09/04/16 at 09:00; Status Future Hold Miscellaneous Information 1 ea NOTE XX ; Start 09/03/16 at 14:00 Glucose (Glutose) 15 gm Q15M PRN PO DECREASED GLUCOSE; Start 09/03/16 at 14:00 Glucose (Glutose) 22.5 gm Q15M PRN PO DECREASED GLUCOSE; Start 09/03/16 at 14: 00 Dextrose (D50w Syringe) 25 ml Q15M PRN IV DECREASED GLUCOSE; Start 09/03/16 at 14:00 Dextrose (D50w Syringe) 50 ml Q15M PRN IV DECREASED GLUCOSE Last administered on 09/04/16 03:39; Admin Dose 50 ML; Start 09/03/16 at 14:00 Glucagon (Glucagen) 1 mg Q15M PRN IM DECREASED GLUCOSE; Start 09/03/16 at 14:00 Glucose (Glutose) 15 gm Q15M PRN BUCCAL DECREASED GLUCOSE; Start 09/03/16 at 14 :00 Ondansetron HCl (Zofran Inj) 4 mg Q6H PRN IV NAUSEA AND/OR VOMITING; Start at 22:00 Gabapentin (Neurontin) 100 mg TID PO Last administered on 09/09/16 12:19; Admin Dose 100 MG; Start 09/05/16 at 13:00 Guaifenesin (Robitussin Liquid Cup) 200 mg Q4H PRN PO COUGH Last administered on 09/09/16 02:25; Admin Dose 200 MG; Start 09/05/16 at 19:00 Insulin Glargine (Lantus) 7 unit DAILY@20 SC Last administered on 09/08/16 21: 05; Admin Dose 7 UNIT; Start 09/06/16 at 20:00 Hydralazine HCl (Apresoline) 25 mg BID PO Last administered on 09/09/16 08:45 ; Admin Dose 25 MG; Start 09/06/16 at 10:30 Amlodipine Besylate (Norvasc) 5 mg BID PO ; Start 09/09/16 at 21:00 Losartan Potassium (Cozaar) 50 mg BID PO ; Start 09/09/16 at 21:00 DEJUAN OROSCO NP Sep 09, 2016 15:11
--- NOTE | 2016-09-09 15:38 | DS ---
DATE OF ADMISSION: 09/03/2016 DATE OF DISCHARGE: 09/09/2016 HOSPITAL COURSE: A 70-year-old female originally admitted on 09/03/2016 and being discharged home on 09/09/2016. Patient came in initially with this cough and fever for 3 days prior to admission. She was diagnosed with upper respiratory infection, specifically pneumonia. She was admitted to fl d/surg floor. She was seen by cardiology team and GI team as well. She was found with sepsis, agai n secondary to right-sided pneumonia, placed on antibiotics for upper respiratory infection, improve d. She also was found to have type 2 diabetes. A1c was 7.0. She continued her current insulin reg imen. She also was monitored for an aortic stenosis found after cardiac murmur was auscultated. Julio judd was seen by cardiology team and recommended continued medical management, including blood pressure medications. Over the course of her hospital stay, her vital signs were stable. Her sugars were s table. She was placed on antibiotics as well for upper respiratory infection as well as a positive UTI. She had evaluation by GI team as well for some dysphagia, possibly secondary to her prior hist ory of radiation from breast cancer in the past, status post mastectomy in the past. In any event, she underwent EGD for the dysphagia and she was found with no significant esophageal narrowing or __ __ from dilation. There was some mild gastritis as well. She was placed on modified dysphagia diet, which she tolerated well. She will be discharged home today in improved condition. DISCHARGE MEDICATIONS: She will be sent with the following medications: 1. Guaifenesin 300 mg p.o. q. p.r.n. 2. Hydralazine 25 mg b.i.d. 3. Levaquin 500 mg p.o. daily for 5 more days. 4. Amlodipine 10 mg daily. 5. Coreg 3.125 mg ____ 6. ____mg b.i.d. 7. NovoLog insulin, mixture 70/30 with meals. 8. Lantus 20 units at bedtime. 9. Losartan 100 mg daily. 10. Omeprazole 20 mg daily. She will need to follow up with primary care doctor in the clinic in the next 1 to 2 weeks and ioana nue her dysphagia diet. FINAL DIAGNOSES: 1. Sepsis secondary to upper respiratory infection. 2. Pneumonia, now improved with antibiotics. 3. Urinary tract infection, improved with antibiotics. 4. Moderate ____medically managed by cardiology team. 5. Essential hypertension. 6. Type 2 diabetes 7. Dysphagia status post esophagogastroduodenoscopy, now on dysphagia diet. 8. History of tinnitus. Follow up with ENT doctor as an outpatient 9. Esophageal stenosis, possibly radiation-induced from ____ breast cancer diagnosed in the past. 7. History of left breast mastectomy in the past secondary to breast cancer. 8. History of ____ surgery in the past. 9. Asthma. 10. Prior history of congestive heart failure. ____ ____45 minutes Dictated By: CHARITY DAVIS Conf#: [id number] DID#: [id number]
[2016-09-09] MEDS ORDERED: AMLODIPINE 5 MG TAB PO SCH (21:00)
[2016-09-09] MEDS ORDERED: LOSARTAN 50 MG TAB PO SCH (21:00)
== END 2016-09-09 17:04 | disposition home or self-care (01) | DRG 871 ==
LOC: E/R 11:14 → MS2 13:30
PROVIDERS: ADMIT Family Medicine; ATTEND Family Medicine
PROC: 0DB68ZX Excision of Stomach, Via Natural or Artificial Opening Endoscopic, Diagnostic (ICD-10-PCS; principal; 2016-09-03)
PROC: 30233N1 Transfusion of Nonautologous Red Blood Cells into Peripheral Vein, Percutaneous Approach (ICD-10-PCS; 2016-09-08)
DX: A41.9 Sepsis, unspecified organism (principal); J18.9 Pneumonia, unspecified organism; D61.818 Other pancytopenia; I50.22 Chronic systolic (congestive) heart failure; N39.0 Urinary tract infection, site not specified; I11.0 Hypertensive heart disease with heart failure; E11.21 Type 2 diabetes mellitus with diabetic nephropathy; J45.909 Unspecified asthma, uncomplicated; J06.9 Acute upper respiratory infection, unspecified; I35.0 Nonrheumatic aortic (valve) stenosis; K22.2 Esophageal obstruction; K29.30 Chronic superficial gastritis without bleeding; E03.9 Hypothyroidism, unspecified; E11.610 Type 2 diabetes mellitus with diabetic neuropathic arthropathy; M14.671 Charcot's joint, right ankle and foot; H93.19 Tinnitus, unspecified ear; D63.8 Anemia in other chronic diseases classified elsewhere; R01.1 Cardiac murmur, unspecified; R13.10 Dysphagia, unspecified; Z92.21 Personal history of antineoplastic chemotherapy; Z90.12 Acquired absence of left breast and nipple; Z79.4 Long term (current) use of insulin; Z85.3 Personal history of malignant neoplasm of breast
CPT/HCPCS: 36415; 36430; 70551; 71010; 71260; 73630; 74230; 80048; 80053; 80061; 80076; 81001; 82550; 82553; 82962; 83036; 83540; 83605; 83735; 84436; 84443; 84479; 84484; 85014; 85018; 85025; 85610; 85730; 86850; 86870; 86900; 86901; 86920; 87040; 87070; 87086; 88305; 88312; 93005; 94640; 96365; J1650; J1815; J1956; J2405; J3010; J7030; P9016; Q9967